=== PATIENT | male | born 1950 | race Caucasian/White ===

== ENCOUNTER 2024-05-04 16:25 | Inpatient (IN) | payer OTHER, SELFPAY ==
[2024-05-04] VITALS (12 sets, daily range): BP systolic 147–196; BP diastolic 77–126
[2024-05-04 11:36] LABS: % Basophils 0.3 % (0-2); % Immature Granulocytes 0.9 % (0-0.5); % Lymphocytes 16.8 % (20.5-51.1); % Monocytes 8.3 % (1.7-9.3); % Neutrophils 73.7 % (42.2-75.2); Absolute Immature Granulocytes 0.1 10^3/uL (0-0.05); Absolute Lymphocytes 1.3 10^3/uL (1.2-3.4); Absolute Monocytes 0.6 10^3/uL (0.1-0.6); Absolute Neutrophils 5.7 10^3/uL (1.4-6.5); Hematocrit 38.9 % (39.0-52.0); Hemoglobin 13.5 g/dL (13.0-18.0); Mean Corp Hgb Conc. 34.7 g/dL (33.0-37.0); Mean Corpuscular Hgb 32.8 pg (27.0-31.0); Mean Corpuscular Volume 94.6 fL (80.0-94.0); Mean Platelet Volume 9.8 fL (7.4-10.4); Nucleated Red Blood Cells % 0 % (-); Platelet Count 166 10^3/uL (130-400); Red Blood Cell Count 4.11 10^6/uL (4.70-6.10); Red Cell Dist. Width 13.6 % (11.5-14.5); White Blood Cell Count 7.7 10^3/uL (4.8-10.8)
--- NOTE | 2024-05-04 11:37 | ED.GENMED ---
History of Present Illness
General
Chief Complaint: Change in Mental Status
Time Seen by Provider: 05/04/24 11:12
History of Present Illness
History of Present Illness:
73-year-old male with no known past medical history presenting to the emergency department for fall and altered mental status. Patient arrives from home. [id number] was at the patient's home, heard a thud, found the patient on the ground.
When he found the patient, patient seemed altered and out of it. Medics were subsequently called. Patient on arrival is awake and alert, however is having difficulty following commands, no present verbal conversation. No additional history
obtained at this time. Pnujcra-jh-daz allegedly reported that he did not see patient this morning, no known last normal
Past History
Social History
Tobacco: Non-smoker
Personal:
Living: with family
Phy Exam
Physical Exam
Physical Exam:
General: no clinical signs of dehydration, nontoxic and in no acute distress
HEENT: protecting airway, pupils equal and react
Neck: appears supple, no tenderness to the midline spine
CV: Normal heart rate, regular rhythm, no evidence of cyanosis
Resp: No accessory muscle use, no increased work of breathing, lungs clear to auscultation bilaterally
Abd: Soft and non-distended, no tenderness to palpation
Extremities: No deformities, no swelling, no erythema, pulses and sensation intact
Neuro: alert, not currently verbally communicative. Following minimal commands, moving all extremities
: deferred
Rectal: deferred
Psych: Normal affect
Skin: Intact
Course
Orders/Labs/Results
Orders:
Orders
05/04/24 11:12
Electrocardiogram (*1) Urgent
Reason for Study: Other
Other Reason for Exam: sepsis
EKG- Treatment ONCE
Straight cath- Treatment ONCE
05/04/24 11:13
CT Cervical Spine W/o Iv Contr Urgent
Comment:
Reason For Exam: untinessed fall
CT Head W/o Iv Contrast Urgent
Comment:
Reason For Exam: change in status
CR Chest Portable - 1 View Urgent
Comment:
Reason For Exam: AMS
Reason Study Needs to be Portable: Unable to Transport
05/04/24 11:27
Alcohol Urgent
COVID-19 Antigen Urgent
Source: Nasal Swab
Complete Blood Count/With Diff Urgent
Comprehensive Metabolic Panel Urgent
PTT Urgent
Prothrombin Time Urgent
Troponin I Urgent
Influenza A+B Rapid Molecular Urgent
JUDITH Source: Nasal Swab
Specimen Description:
05/04/24 11:30
Lactic Acid Q4H
Comment: CANCEL 2nd LACTIC ACID IF 1st LACTIC ACID IS LESS THAN 2
Venous Blood Gas Urgent
%Oxygen/Room Air: 21
05/04/24 11:43
Urinalysis Reflex To Culture Urgent
Date Specimen was Collected: 05/04/24
Time Specimen was Collected: 11:32
Urine Drug Abuse Screen Urgent
Date Specimen was Collected: 05/04/24
Time Specimen was Collected: 11:32
05/04/24 11:48
Add On- LAB Urgent
Tests Added?: urine drug screen
05/04/24 11:57
CT Head & Neck Angio W/wo IV Urgent
Comment:
Reason For Exam: altered mental status, minimal speech
05/04/24 11:58
Add On- LAB Urgent
Tests Added?: ETOH level
05/04/24 12:00
CT Chest Pe Study Urgent
Reason For Exam: AMS, hypoxia
05/04/24 12:10
0.9% Sodium Chloride 1000 ml [Nss] 1,000 ml IV BOLUS
05/04/24 Dinner
NPO
Allow oral meds: Yes
Allow clear liquids: Sips of Clears
Cefepime HCl [Maxipime] 2,000 mg IV NOW STA
05/04/24 15:12
Acetaminophen [Tylenol/Feverall] 975 mg RECTAL NOW STA
05/04/24 15:27
Vancomycin [Vancocin] 2,000 mg 0.9% Sodium Chloride 500 ml [Nss] 500 ml IV NOW
05/04/24 15:41
Blood Culture Routine
JUDITH Source: Blood/Venous
Specimen Description:
05/04/24 15:53
Admit/Transfer Patient As Directed
Co-Sign Provider:
Level of Care: Inpatient admission
Assign to:: Medical/Surgical
Physician / Group: suzanne
Diagnosis: sepsis pneumonia
Reason for Hospitalization: sepsis pneumonia
Expected length of stay greater than two midnights?: Yes
ELOS- Estimated Length of Stay in days: 2
I certify the patient meets the requirements for IP care: Yes
PRN Pain Medication Management As Directed
May give lesser potent ordered pain med per pt: Yes
preference::
Protocol:: Medication orders for pain may be administered in a
manner that supports deferring to patient preference
when the pt is:
- Requesting an ordered lesser potent pain medication.
Least to most potent pain medications are defined
as: acetaminophen < NSAID < tramadol < opioids
(morphine, oxycodone, hydromorphone).
- Requesting a lesser dose of the same medication IF
ORDERED.
- Requesting a less intrusive route of administration
if both routes are prescribed by the provider (PO <
IV).
05/04/24 15:54
Code Status As Directed
Resuscitation Status: Full Code
05/04/24 15:56
Respiratory Culture/Gram Stain Urgent
JUDITH Source: Sputum
Specimen Description:
Date Specimen was Collected: 05/05/24
Time Specimen was Collected: 15:51
05/04/24 19:03
0.9% Sodium Chloride 1000 ml [Nss] 1,000 ml IV 100 mls/hr
Acetaminophen [Tylenol/Feverall] 650 mg RECTAL Q4HPRN PRN
Labetalol HCl [Trandate] 10 mg IV Q6HPRN PRN
VANCOMYCIN Pharmacy to Dose [VANCOCIN Pharmacy to Dose] 1 each Pharmacy To Prepare [Call Pharmacy To Prepare] 0 ml IV PER PROTOCOL
05/04/24 19:03
Activity As Directed
Activity Level: As Tolerated
Vital Signs As Directed
Frequency: Per unit guidelines
DX Deep Vein Thrombosis Video Routine
05/04/24 20:00
Heparin 5,000 units SC Q12
Piperacillin/Tazo 3.375 Gram [Zosyn] 3.375 gram in 50 ml IV Q6H
05/04/24 21:34
Blood Culture Urgent
JUDITH Source: Blood/Venous
Specimen Description:
05/04/24 21:37
Legionella Urinary Antigen Urgent
JUDITH Source: Urine
Specimen Description:
Strep pneumoniae Antigen Urgent
JUDITH Source: Urine
Specimen Description:
05/05/24 05:19
Complete Blood Count/With Diff IN AM
Comprehensive Metabolic Panel IN AM
Abnormal Lab Results
05/04/24 05/04/24 05/04/24
11:27 11:30 11:43
RBC 4.11 L 10^6/uL
(4.70-6.10)
Hct 38.9 L %
(39.0-52.0)
MCV 94.6 H fL
(80.0-94.0)
MCH 32.8 H pg
(27.0-31.0)
Abs Immat Gran (auto) 0.1 H 10^3/uL
(0-0.05)
Immature Gran % 0.9 H %
(0-0.5)
Lymphocytes % 16.8 L %
(20.5-51.1)
PT 14.7 H Sec
(11.4-14.6)
VBG pO2 124 H mmHg
(30-50)
BUN 27 H mg/dl
(9-20)
Glucose 133 H mg/dl
(70-99)
ALT 60 H U/L
(0-50)
Urine Ketones 1+ A
(Negative)
Urine Bilirubin 1+ A
(Negative)
05/04/24 11:27
05/04/24 11:27
Vital Signs
Initial and Last Documented VS:
Initial Vital Signs
Temp Pulse Resp BP Pulse Ox
98.5 F 95 18 175/97 89
05/04/24 11:09 05/04/24 11:09 05/04/24 11:09 05/04/24 11:09 05/04/24 11:09
Last Documented Vital Signs
Temp Pulse Resp BP Pulse Ox
99.2 F 102 15 164/95 96
05/05/24 15:25 05/05/24 19:15 05/05/24 19:15 05/05/24 19:00 05/05/24 19:15
MDM/Problems Addressed
MDM/Problems Addressed:
77-year-old male with no known past medical history presenting for reported fall and altered mental status. Vital signs on arrival significant for low oxygen saturation.
On exam, patient is awake and alert, however is following minimal commands, no present verbal response. No obvious additional focal neurologic deficits, moving all extremities equally. No signs of trauma. Pelvis is stable. Given report of fall
and altered mental status, concern for pathology such as a hemorrhagic stroke. For this reason, patient immediately sent to CT scan for brain imaging. With stroke being a consideration, unknown last normal, not presently tPA candidate. However,
hide to also suspect possible additional underlying cause to patient's symptoms, possible metabolic component versus infectious. Patient hypoxic to 89%, placed on nasal cannula. Will send viral swabs and obtain chest x-ray imaging.
12:00 -patient CT of the brain and C-spine is negative. Labs are grossly unremarkable at this time. Normal urinalysis. Family arrives, and [id number] reports that patient was last normal yesterday. When he got home from [employer] today, he went
to go check on the patient, he was leaning on the kitchen sink and seemed out of it. He then came out of the bathroom, missed a step and fell. Family notes that he has been fighting off an infection for the past week, cough. Will send patient for
CT angio of the brain and neck, and also CT of the chest given infectious concerns and presenting hypoxia.
15:00 -CT angio head/neck without evidence of acute pathology. CT of the chest shows a left-sided pneumonia. Patient with normal lactic acid, no leukocytosis, not meeting sepsis criteria. VBG without hypercapnia. Will start patient on
broad-spectrum antibiotics, however, with family noting that patient has been on azithromycin at home. Suspect etiology of patient's altered mental status and cough. Patient remains very altered, however continues to protect airway. He is now
having rigors, re-temp now febrile. Rectal Tylenol ordered. Plan for admission for pneumonia and altered mental status, possible metabolic encephalopathy.
*EKG
Interpreted by ED Provider?: Yes
EKG Intrepretation Date: 05/04/24
EKG Intrepretation Time: 11:41
Interpretation: normal
Comparison EKG: no changes
Heart Rate: 87
Rate: normal
Rhythm: sinus
[place]: normal axis
Interval: first degree heart block
QRS Pattern: normal QRS
Ischemia: no ischemia
*Critical Care Note
Total Time (30-74mins, 75-104mins- exclusive of procedures): 46
comment:
The high probability of a clinically significant, sudden or life threatening deterioration of the infectious/neurologic system(s) required my full and direct attention, intervention and personal management. The aggregate critical care time was 46
minutes. This time is in addition to time spent performing reported procedures but includes the following:
[x] Data Review and interpretation
[x] Patient assessment and monitoring of vital signs
[x] Documentation
[x] Medication orders and management
ED Attending Note
-
Portions of this chart may have been created with voice recognition software.� Occasional wrong word or��sound alike� substitutions may have occurred due to the inherent limitations of voice recognition software.
Discharge Plan
Departure
Patient Disposition: Admit
Date of Disposition: 05/04/24
Time of Disposition: 15:18
Presentation/result/management discussed w/ accepting MD/DO: Hospitalist
Patient with high blood pressure during this ER visit?: No
Condition: Serious
Discharge Problem:
Pneumonia involving left lung, Altered mental status
Interventions
Interventions:
*Risk Screen - Suicide Last Done: 05/04/24 23:34
*General Assessment Last Done: 05/04/24 11:09
*Neglect/Abuse Screening Last Done: 05/04/24 11:09
*ED COVID-19 Vaccine History Last Done: 05/04/24 23:34
*Nursing Disposition Last Done: 05/04/24 18:27
ED- Pulmonary Assessment Last Done: 05/04/24 18:27
ED- Neurological Assessment Last Done: 05/04/24 11:49
ED- Cardiac Assessment Last Done: 05/04/24 11:37
Discharge Date and Time
Discharge Date/Time: 05/04/24 18:30
[2024-05-04 11:40] LABS: Venous Blood Gas B.E. 1.3 mmol/L (-4 to +4); Venous Blood Gas HCO3 25.9 mmol/L (22-27); Venous Blood Gas O2 Sat % 99.3 %; Venous Blood Gas pCO2 40 mmHg (35-48); Venous Blood Gas pH 7.42 (7.32-7.43); Venous Blood Gas pO2 124 mmHg (30-50)
[2024-05-04 11:45] LABS: APTT 34.7 Sec (23.4-35.0); INR 1.16; PT 14.7 Sec (11.4-14.6)
[2024-05-04 11:47] LABS: Venous Blood Gas O2 Therapy 21
[2024-05-04 11:50] LABS: Urine Albumin Trace (Neg - Trace); Urine Bilirubin 1+ (Negative); Urine Character Clear (Clear); Urine Color Yellow; Urine Glucose Negative (Negative); Urine Ketone 1+ (Negative); Urine Leukocyte Negative (Negative); Urine Nitrite Negative (Negative); Urine Occult Blood Negative (Negative); Urine Specific Gravity 1.025 (<1.030); Urine Urobilinogen Negative (Neg - 1+)
[2024-05-04 11:50] LABS: ALT (SGPT) 60 U/L (0-50); AST (SGOT) 39 U/L (17-59); Albumin 4.6 g/dl (3.5-5.0); Alkaline Phosphatase 69 U/L (38-126); Blood Urea Nitrogen 27 mg/dl (9-20); Calcium 9.2 mg/dl (8.4-10.2); Carbon Dioxide 22 mmol/L (22-30); Chloride 103 mmol/L (98-107); Glucose 133 mg/dl (70-99); Potassium 4.1 mmol/L (3.5-5.1); Sodium 139 mmol/L (135-145); Total Bilirubin 0.8 mg/dl (0.2-1.3); Total Protein 7.4 g/dl (6.3-8.2); eGFR > 60.00
[2024-05-04 11:59] LABS: COVID-19 Antigen Negative (Negative)
[2024-05-04 12:02] LABS: Troponin I < 0.012 ng/ml
[2024-05-04 12:05] LABS: Amphetamines Negative (Negative); Barbiturates Negative (Negative); Benzodiazepines Negative (Negative); Buprenorphine Negative (Negative); Cocaine Negative (Negative); Marijuana Negative (Negative); Methadone Negative (Negative); Methamphetamines Negative (Negative); Opiates Negative (Negative); Phencyclidine Negative (Negative); Tricyclic Antidepressants Negative (Negative)
[2024-05-04] MEDS: NSS 1000 IV ×2 (12:13→20:21)
[2024-05-04 12:18] LABS: Alcohol None Detected
[2024-05-04] MEDS: TYLENOL/FEVERALL 975 MG RECTAL (15:18)
[2024-05-04] MEDS: MAXIPIME 2000 MG IV (15:21)
[2024-05-04] MEDS: VANCOCIN 540 MG IV (15:48)
--- NOTE | 2024-05-04 15:57 | HPS.HSE ---
Family Physician
-
Family Physician: INTERVIEWE UNKNOWN - PT NOT
Chief Complaint
-
altered mental status
History of Present Illness
73-year-old male past medical history of left shoulder injury presenting to the emergency room for fall and altered mental status. History is obtained from patient's [id number] who is a nurse. Patient has been having productive cough with chest
congestion for the past 2 weeks. He had been self-medicating with 3 Aleve in the morning and 3 Aleve at night as well as DayQuil and NyQuil's. He also had some amoxicillin which he was taking.
This morning he was noted to be lethargic while he was walking he was leaning to 1 side and had a witnessed fall. This was witnessed by patient's brother. Medics were called. On arrival patient was awake and alert but having difficulty following
commands and was nonverbal. Patient was last seen normal yesterday evening.
Patient does not smoke, drink alcohol or use any recreational drugs or herbal supplements.
No history of neurological problems such as seizure. Patient does not follow doctors.
2 siblings with diabetes and 2 siblings with CAD.
Medical History
Past Medical History
Past Medical History: Reports Other (left shoulder injury)
Past Surgical History: Reports None
Social History
Tobacco: Non-smoker
Alcohol: None
Drug: None
Family History
Family History: Not pertinent
Allergies / Home Medications
Allergies reflects when Allergies were last updated in [facility].
Home Medications with original date entered in [facility]
Allergy/Medication List:
Allergies
Allergy/AdvReac Type Severity Reaction Status Date / Time
No Known Allergies Allergy Verified 11/05/13 17:57
Home Medications
amoxicillin 500 mg capsule 1,000 mg PO TID 05/04/24
naproxen sodium 220 mg tablet (Aleve) 660 mg PO BIDPRN PRN shoulder pains 05/04/24
Review of Systems
-
History Source: Patient
A 12 point ROS was completed and negative except as noted: Yes
Constitutional: Reports No Symptoms
EENT: Reports No Symptoms
Respiratory: Reports See HPI
Cardiac: Reports No Symptoms
Abdomen/GI: Reports No Symptoms
: Reports No Symptoms
Musculoskeletal: Reports No Symptoms
Skin: Reports No Symptoms
Neurological: Reports No Symptoms
Endocrine: Reports No Symptoms
Hematologic/Lymphatic: Reports No Symptoms
Psych: Reports No Symptoms
Physical Exam
Vital Signs
Vital Signs
Temp Pulse Resp BP Pulse Ox
101.0 F H 103 18 196/126 97
05/04/24 15:22 05/04/24 15:15 05/04/24 11:09 05/04/24 15:01 05/04/24 15:15
Physical Exam
General: Well Developed, Well Nourished and No Apparent Distress
HEENT: NormoCephalic, Moist mucous membranes and Atraumatic
Respiratory: Clear
Cardiac: S1/S2 and Regular Rhythm; No Murmur or Rub
GI: Soft, Non Tender, Non Distended and Normal Bowel Sounds; No Organomegaly
Rectal: Deferred by Provider
Musculoskeletal: No Clubbing, No Cyanosis and No Edema
Skin: No Rash
Neuro: Nonfocal/grossly intact
Laboratory Results
-
05/04/24 11:27
05/04/24 11:27
Laboratory Results
PT 14.7 Sec (11.4-14.6) H 05/04/24 11:27
INR 1.16 05/04/24 11:27
APTT 34.7 Sec (23.4-35.0) 05/04/24 11:27
Lactic Acid Cancelled 05/04/24 15:15
Total Bilirubin 0.8 mg/dl (0.2-1.3) 05/04/24 11:27
AST 39 U/L (17-59) 05/04/24 11:27
ALT 60 U/L (0-50) H 05/04/24 11:27
Alkaline Phosphatase 69 U/L (38-126) 05/04/24 11:27
Troponin I < 0.012 ng/ml 05/04/24 11:27
Data Reviewed
-
Lab Data: Labs Reviewed by me
Old Records: Reviewed
Impression/Plan
-
IMPRESSION:
PLAN:
# Altered mental status likely metabolic encephalopathy secondary to sepsis from pneumonia
-Patient awake and alert but not speaking at all or following commands
-Fever 101
-CT head unremarkable
-CTA head and neck shows no acute abnormality
-VBG unremarkable
-Urinalysis unremarkable
-Alcohol level negative
-UDS unremarkable
-COVID-negative
-Patient has clear source of sepsis from pneumonia, doubt encephalitis or seizure at this time
# Sepsis (fever, tachycardia,) secondary to left lower lobe pneumonia
-CT PE shows probable moderate left lower lobe pneumonia, underlying mass not excluded
-Check sputum culture, strep antigen, Legionella antigen, MRSA if able
-Check blood cultures
-IV fluids
-Rectal Tylenol if needed
-Vancomycin/Zosyn
# Hypertensive urgency
-IV labetalol
Full code
DVT prophylaxis�heparin
N.p.o.
--- NOTE | 2024-05-04 19:13 | PHA.VAN.IN ---
Assessment
- Assessment
Renal Function: Appears similar to baseline
Maximum Temperature: 101
Concomitant Antimicrobials: Piperacillin/Tazobactam
AUC Dosing Plan
- Empiric Dosing
Initial / Loading Dose: Vanco 2000mg Loading dose 05/04/24 15:48
Maintenance Regimen: Vanco 1250mg Q12H
Estimated AUC (mcg*h/mL): 484
Estimated Peak (mcg*h/mL): 29.6
Estimated Trough (mcg/ml): 12.8
Estimated Half Life (H): 8.67
- Monitoring
No levels ordered at this time: Consider in the next few days
Pharmacokinetics Vancomycin I
- -
Patient Age: 73
Vancomycin Day #: 1
Indication: Pulmonary/Respiratory
Requesting Provider: Vani
Pertinent Antimicrobial Allergies:
NKDA
Height / Weight:
Height 5 ft 9 in
Actual Weight 114.2 kg
Pertinent Past Medical History: Pneumonia
- Vital Signs / Lab Results
Temp Pulse Resp BP Pulse Ox
99.3 F 99 18 166/104 94
05/04/24 19:00 05/04/24 19:00 05/04/24 19:00 05/04/24 19:00 05/04/24 19:00
Lab Results - Hematology
05/04/24
11:27
WBC 7.7
Lab Results - Chemistry
05/04/24
11:27
BUN 27 H
Creatinine 0.9
Albumin 4.6
05/04/24 05/04/24
11:30 15:15
Lactic Acid 1.0 Cancelled
Lab Results - Urine
05/04/24
11:43
Urine Nitrite (Reflex) Negative
Leukocyte Esterase Rfl Negative
Microbiology Results
05/04/24 11:27 Influenza Types A & B ([facility]) - Final
Nasal Swab Negative for Influenza A & B, NAAT
Negative results must be combined with clinical observations
and patient history.
Nucleic Acid Amplification test (NAAT)performed on the
[employer] platform.
[2024-05-04] MEDS: ZOSYN 50 IV (20:22)
[2024-05-04] MEDS: HEPARIN 5000 UNITS SC (20:22)
--- NOTE | 2024-05-04 22:30 | PTCARENOTE ---
Patient remains non-verbal, unable to follow any commands. Pupils reactive but 4-5mm in size. Patient with a temperature of 100.9, BP elevated. Labetalol and Tylenol suppository to be given. CT of head with no acute findings, labs and VBG reviewed
with NEDA Montiel. This RN discussed with NEDA that patient does not look well and asked her to assess patient. NEDA spoke with hospitalist. Note entered by Dr. Ludwig. BP and temperature improved s/p medication. Care ongoing, will continue
to monitor.
[2024-05-04] MEDS: TYLENOL/FEVERALL 650 MG RECTAL (22:45)
[2024-05-04] MEDS: TRANDATE 10 MG IV (22:45)
--- NOTE | 2024-05-04 23:39 | W.PN.UPDATE ---
Update Note
Progress Note Update
Patient continues to be arousable and opens eyes however continues to not follow commands or speak. Possible catatonia. If no further improvement with IV antibiotics will need to consider LP, MRI brain and neurology consult for consideration of
encephalitis.
[2024-05-05] VITALS (45 sets, daily range): BP systolic 87–176; BP diastolic 70–137; BMI 37.0
[2024-05-05] MEDS: ZOSYN 50 IV ×2 (01:56→08:44)
[2024-05-05] MEDS: NSS 1000 IV ×2 (04:21→15:36)
[2024-05-05] MEDS: VANCOCIN 275 MG IV (05:24)
[2024-05-05 05:38] LABS: % Basophils 0.5 % (0-2); % Eosinophils 0.2 % (0-6); % Immature Granulocytes 0.8 % (0-0.5); % Lymphocytes 14.1 % (20.5-51.1); % Monocytes 10.5 % (1.7-9.3); % Neutrophils 73.9 % (42.2-75.2); Absolute Immature Granulocytes 0.1 10^3/uL (0-0.05); Absolute Lymphocytes 0.9 10^3/uL (1.2-3.4); Absolute Monocytes 0.7 10^3/uL (0.1-0.6); Absolute Neutrophils 4.7 10^3/uL (1.4-6.5); Hematocrit 35.5 % (39.0-52.0); Hemoglobin 12.6 g/dL (13.0-18.0); Mean Corp Hgb Conc. 35.5 g/dL (33.0-37.0); Mean Corpuscular Hgb 34.2 pg (27.0-31.0); Mean Corpuscular Volume 96.5 fL (80.0-94.0); Mean Platelet Volume 9.2 fL (7.4-10.4); Nucleated Red Blood Cells % 0 % (-); Platelet Count 129 10^3/uL (130-400); Red Blood Cell Count 3.68 10^6/uL (4.70-6.10); Red Cell Dist. Width 13.2 % (11.5-14.5); White Blood Cell Count 6.3 10^3/uL (4.8-10.8)
[2024-05-05 05:58] LABS: ALT (SGPT) 46 U/L (0-50); AST (SGOT) 32 U/L (17-59); Alkaline Phosphatase 57 U/L (38-126); Blood Urea Nitrogen 21 mg/dl (9-20); Calcium 8.5 mg/dl (8.4-10.2); Carbon Dioxide 24 mmol/L (22-30); Chloride 103 mmol/L (98-107); Estimated Creatinine Clearance 102 ml/min; Glucose 119 mg/dl (70-99); Potassium 4.3 mmol/L (3.5-5.1); Sodium 137 mmol/L (135-145); Total Protein 6.6 g/dl (6.3-8.2); eGFR > 60.00
--- NOTE | 2024-05-05 06:52 | W.PN.UPDATE ---
Update Note
Progress Note Update
RN called APPLICATIONS SALES CONSULTANT to evaluate patient. Patient seen and evaluated, Patient continuos to be at the baseline. Awake and alert and non-verbal, looks at the [employer] SALES CONSULTANT but no communication, does not follow commands. vitals stable. Addressed with the admitting Dr.
Isaiasdandmckenzie if MRI need to be done or a neuro consult. Plans noted. No new orders at present.
[2024-05-05] MEDS: HEPARIN 5000 UNITS SC (08:40)
[2024-05-05] MEDS: TRANDATE 10 MG IV (08:44)
--- NOTE | 2024-05-05 09:03 | W.PN.HOSP.TC ---
Today's Communication/Plan
-
see bold
Assessment / Plan
Assessment / Plan
HPI: 73-year-old male past medical history of left shoulder injury presenting to the emergency room for fall and altered mental status. History is obtained from patient's [id number] who is a nurse. Patient has been having productive cough with
chest congestion for the past 2 weeks. He had been self-medicating with 3 Aleve in the morning and 3 Aleve at night as well as DayQuil and NyQuil's. He also had some amoxicillin which he was taking.
This morning he was noted to be lethargic while he was walking he was leaning to 1 side and had a witnessed fall. This was witnessed by patient's brother. Medics were called. On arrival patient was awake and alert but having difficulty following
commands and was nonverbal. Patient was last seen normal yesterday evening.
#Altered mental status
#Fever
#Sepsis
#Encephalitis vs Bacterial Meningitis vs Aseptic meningitis
Appreciate neurology and ID input, LP ordered, started on empiric vanc/ceftriaxone/ampicillin/doxycycline
Patient has been on high-dose NSAIDs, which can cause aseptic meningitis
Check brain MRI, check Lyme/West Nile serology, follow-up CSF studies
Consult business director
#Possible pneumonia
Continue antibiotics as above
#Seizure activity
Intubated for airway protection 05/05
Transferred to the ICU
Started on Keppra 1000 mg IV every 12 hours, Versed drip
#Hypertensive urgency
IV labetalol as needed
#Obesity due to excess calories
Affects all aspects of care
#Recent dental procedure
DVT prophylaxis�subcu Lovenox
Full code
Total time spent to see the patient on the floor, examine the patient, review data and lab results, discuss treatment plan with patient, nursing staff around 65 minutes.
Physical Exam
General: Appears acutely ill
HEENT: Normocephalic, Atraumatic, EOMI, MMM
Respiratory: Clear to Auscultation bilaterally
Cardiac: Normal S1/S2, Regular Rate and Rhythm
GI: Soft, Nontender, Nondistended, Normal Bowel Sounds
Extremities: No Clubbing, Cyanosis
Neuro: Not answering questions, not following commands, cogwheel rigidity noted
Anticipated Discharge: > 48 hours
Subjective/Interval History
-
Date of Service: May 05, 2024
Patient seen and examined twice today. In the morning, his eyes were open, he did not answer questions or follow commands. In the afternoon, he was transferred to the ICU for seizure activity. He was intubated for airway protection.
Objective Data
-
Labs:
Laboratory Results
05/05/24
05:19
WBC 6.3
Hgb 12.6 L
Hct 35.5 L
Plt Count 129 L D
Sodium 137
Potassium 4.3
Chloride 103
Carbon Dioxide 24
BUN 21 H
Creatinine 0.8
Glucose 119 H
Calcium 8.5
Total Bilirubin 1.0
AST 32
ALT 46
Alkaline Phosphatase 57
Vital Signs:
Vital Signs
Temp Pulse Resp BP Pulse Ox
99.0 F 86 20 163/108 95
05/05/24 07:57 05/05/24 08:44 05/05/24 07:57 05/05/24 08:44 05/05/24 07:57
--- NOTE | 2024-05-05 10:32 | CON.NEURO ---
Consultation
Order
Date of Consultation: 05/05/24
Requesting Provider: Dr. Abdi
Reason for Consult: aphasia vs catatonia
CC: none
HPI: This is a 73-year-old man who presented to [facility] on May 04, 2024 with hypoxia and hypoxia. Neurology consultation was requested for evaluation of suspected language dysfunction versus catatonia.
The patient is unable to provide the history.
ER VS: 175/97, 95, 18-24, 38.3C C. 89% .
EKG: NSR, 1st degree of AVB. QTc Int : 418 ms
PDMP:none
Labs: Normal WBCs, platelets 166-129, normal sodium, creatinine, lactic acid, glucose�133, UA positive for ketones, bilirubin, urine tox�negative, EtOH�negative, SARS Cov-2 ag�negative
CT head-No acute intracranial abnormality.
CTA head/neck-no evidence of M1 or M2 occlusion. There is no carotid dissection. There is no focal stenosis. Possible moderate left lower lobe pneumonia
C spine CT- severe disc space narrowing at C5/6 and C6/7. There is moderate narrowing at C7/T1.
Mr. Duncan was started on Zosyn, cefepime and vancomycin.
PMH: no prior medical care
PSH: leg ORIF in childhood
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
FH: DM, CAD
All: NKDA
ROS: limited due to encephalopathy
General: intermittently restless. No clear neck stiffness.
Cardio: Regular rate. Extremities are without cyanosis or edema.
Neuro:
Mental Status: Alert,attends briefly. Does not follow requests. Mute, no hemineglect.
CN: Orthophoric primary gaze. Pupils 3 mm, reactive. Blink to stand bilateral. No facial weakness.
Motor: Increased motor tone in the upper and lower extremities use cogwheeling. Moves upper and lower extremities antigravity and nonpurposeful spontaneously symmetrically.
Reflexes: Limited exam due to cooperation.
Sensory: Unable to assess due to encephalopathy.
Coordination: Intermittent myoclonic movements?
Gait: deferred
Assessment and Plan:
-Fall precautions
-Blood pressure control
-Avoid neurotoxic medications (cefepime)
-Routine EEG
-Brain MRI without gadolinium
-Please check CK, TFTs, ammonia
-Thiamine 100 mg IV, Acyclovir 10 mg/kg/dose every 8 hours IV
-ID consult
-CSF studies (opening/closing pressure, cell count, cultures)
-DVT p the case was discussed with prophylaxis.
-Patient's family and medical personnel
I personally reviewed all radiology and labs along with past medical records pertinent to current medical problems. Total time spent in patient care is 60 minutes.
Thank you for allowing us to participate in the care of this patient. We will continue to follow. Please do not hesitate to contact us with any questions or concerns.
Subjective/Objective
Subjective Data
Date of Service: May 05, 2024
Objective Data
Vital Signs
Temp Pulse Resp BP Pulse Ox
37.2 C 86 20 130/98 95
05/05/24 07:57 05/05/24 08:44 05/05/24 07:57 05/05/24 09:54 05/05/24 07:57
Lab Results
05/05/24 05:19
05/05/24 05:19
PT 14.7 Sec (11.4-14.6) H 05/04/24 11:27
INR 1.16 05/04/24 11:27
APTT 34.7 Sec (23.4-35.0) 05/04/24 11:27
Sodium 137 mmol/L (135-145) 05/05/24 05:19
Potassium 4.3 mmol/L (3.5-5.1) 05/05/24 05:19
BUN 21 mg/dl (9-20) H 05/05/24 05:19
Glucose 119 mg/dl (70-99) H 05/05/24 05:19
Calcium 8.5 mg/dl (8.4-10.2) 05/05/24 05:19
Ur Buprenorphine Negative (Negative) 05/04/24 11:43
Patient Allergies
No Known Allergies Allergy (Verified 11/05/13 17:57)
Medications
-
Active Medications
Generic Name Dose Route Start Last Admin
Trade Name Freq PRN Reason Stop Dose Admin
Acetaminophen 650 mg 05/04/24 19:03 05/04/24 22:45
Acetaminophen 650 Mg Rectal Suppository RECTAL 06/01/24 19:02 650 mg
Q4HPRN PRN Administration
mild pain/SAUCEDO/temp> 100.4F
Heparin Sodium 5,000 units 05/04/24 20:00 05/05/24 08:40
Heparin 5,000 Units/Ml 1 Ml Vial SC 06/01/24 19:59 5,000 units
Q12 FIDENCIO Administration
Sodium Chloride 1,000 mls @ 100 mls/hr 05/04/24 19:03 05/05/24 04:21
Nss IV 1,000 mls
.Q10H FIDENCIO Administration
Piperacillin Sod/Tazobactam Sod 3.375 gram in 50 mls @ 100 mls/hr 05/04/24 20:00 05/05/24 08:44
Zosyn IV 50 mls
Q6H FIDENCIO Administration
Vancomycin HCl 1,250 mg/ 275 mls @ 183.33 mls/hr 05/05/24 06:00 05/05/24 05:24
Sodium Chloride IV 275 mls
Q12H FIDENCIO Administration
Protocol
Labetalol HCl 10 mg 05/05/24 08:16 05/05/24 08:44
Labetalol Hcl (5 Mg/Ml) 20 Ml Multi-Dose Vial IV 06/02/24 08:15 10 mg
Q6HPRN PRN Administration
SBP>160
Sodium Chloride 0 flush 05/04/24 20:00
Sodium Chloride 0.9% (Flush) Syringe IV 06/01/24 19:59
PER PROTOCOL FIDENCIO
Home Medications
�Medication �Instructions �Recorded
amoxicillin 500 mg capsule 1,000 mg PO TID 05/04/24
naproxen sodium 220 mg tablet 660 mg PO BIDPRN PRN shoulder pains 05/04/24
(Aleve)
Vital Signs and Labs
-
Vital Signs and Labs:
Vital Signs
Temp Pulse Resp BP Pulse Ox
37.2 C 86 20 130/98 95
05/05/24 07:57 05/05/24 08:44 05/05/24 07:57 05/05/24 09:54 05/05/24 07:57
Lab Results
05/05/24 05:19
05/05/24 05:19
PT 14.7 Sec (11.4-14.6) H 05/04/24 11:27
INR 1.16 05/04/24 11:27
APTT 34.7 Sec (23.4-35.0) 05/04/24 11:27
Sodium 137 mmol/L (135-145) 05/05/24 05:19
Potassium 4.3 mmol/L (3.5-5.1) 05/05/24 05:19
BUN 21 mg/dl (9-20) H 05/05/24 05:19
Glucose 119 mg/dl (70-99) H 05/05/24 05:19
Calcium 8.5 mg/dl (8.4-10.2) 05/05/24 05:19
Ur Buprenorphine Negative (Negative) 05/04/24 11:43
Medications
-
Medications:
Generic Name Dose Route Start Last Admin
Trade Name Freq PRN Reason Stop Dose Admin
Acetaminophen 650 mg 05/04/24 19:03 05/04/24 22:45
Acetaminophen 650 Mg Rectal Suppository RECTAL 06/01/24 19:02 650 mg
Q4HPRN PRN Administration
mild pain/SAUCEDO/temp> 100.4F
Heparin Sodium 5,000 units 05/04/24 20:00 05/05/24 08:40
Heparin 5,000 Units/Ml 1 Ml Vial SC 06/01/24 19:59 5,000 units
Q12 FIDENCIO Administration
Sodium Chloride 1,000 mls @ 100 mls/hr 05/04/24 19:03 05/05/24 04:21
Nss IV 1,000 mls
.Q10H FIDENCIO Administration
Piperacillin Sod/Tazobactam Sod 3.375 gram in 50 mls @ 100 mls/hr 05/04/24 20:00 05/05/24 08:44
Zosyn IV 50 mls
Q6H FIDENCIO Administration
Vancomycin HCl 1,250 mg/ 275 mls @ 183.33 mls/hr 05/05/24 06:00 05/05/24 05:24
Sodium Chloride IV 275 mls
Q12H FIDENCIO Administration
Protocol
Labetalol HCl 10 mg 05/05/24 08:16 05/05/24 08:44
Labetalol Hcl (5 Mg/Ml) 20 Ml Multi-Dose Vial IV 06/02/24 08:15 10 mg
Q6HPRN PRN Administration
SBP>160
Sodium Chloride 0 flush 05/04/24 20:00
Sodium Chloride 0.9% (Flush) Syringe IV 06/01/24 19:59
PER PROTOCOL FIDENCIO
Home Medications
-
Home Medications
amoxicillin 500 mg capsule 1,000 mg PO TID 05/04/24
naproxen sodium 220 mg tablet (Aleve) 660 mg PO BIDPRN PRN shoulder pains 05/04/24
--- NOTE | 2024-05-05 11:54 | CON.ID ---
Addendum entered and electronically signed by Alida Carranza MD 05/05/24 14:45:
chart checked - lp not yet completed
note also added valacyclovir 10 mg/kg iv q8hrs
Original Note:
Consultation
-
Date/Time Consultation Requested: 05/05/24 11:15
Date/Time Consultation Performed: 05/05/24 11:54
Requesting Provider: Dr Abdi
Performing Provider: Dr Carranza
Reason for Consultation: concern for meningitis
Chief Complaint / Past History
Chief Complaint
altered mental status
History of Present Illness
Mr Duncan is a 73 year old male with recent L shoulder injury taking high dose NSAIDs presents here yesterday for AMS. History from chart review. Patient had productive cough and chest congestion x2 weeks and self medicating with
amoxicillin. Also taking 3 Aleve in the morning and 3 Aleve at night as well as DayQuil and NyQuils. Then on the day of arrival he was lethargic, leaning to 1 side while walking and had a fall. Patient following some commands but nonverbal. Last
known normal was the evening before. No history of seizure. Doesnt typically see MDs. No pets. No sick contacts or contact with young children. No international travel. Does spend time gardening. No known tick bites.
Since arrival here Tmax 100.9 oral and 101.0 rectal (just above normal limits for rectal Ts), BP stable, wbc initially 7.7 now 6.3, hgb 12.6, plt 129, L shift if noted, eos were not initially present now 0.2%, cr 0.8, lactic acid 1.0, t bili 1.0,
ast 32, alt 46, alk phos 57, UA no pyuria, UDS negative, covid ag neg, CT PE: no PE, probably LLL pneumonia - cannot rule out mass, hilar lymphadenoapthy, CT neck - mild nonacute sinusitis, CT head no acute abnormality, patient is not responding
appropriately to questions though he is following some one step commands.
Past History
Additional Past Medical History:
avoidance of medical care
l shoulder injury
Past Surgical History: None
Allergy History:
No Known Allergies Allergy (Verified 11/05/13 17:57)
Medications Reviewed: Yes
Social History
Tobacco: Non-Smoker
Alcohol: None
Drug: None
Family History
Family History: Not Pertinent
Review of Systems
Review of Systems
unable to obtain due to the condition of hte patient
Vital Signs
Temp Pulse Resp BP Pulse Ox
99.8 F 82 16 134/78 95
05/05/24 11:10 05/05/24 11:10 05/05/24 11:10 05/05/24 11:10 05/05/24 11:10
Physical Exam
Physical Exam
Constitutional: No Acute Distress and Obese
Cardiovascular: Regular Rate and S1/S2; Negative Murmur or Rub
Pulmonary: Clear and Symmetric; Negative Wheezes, Rales or Rhonchi
Gastrointestinal: Soft, Non Tender, Non Distended and Normal Bowel Sounds
Skin: Warm and Dry; Negative Rash or Jaundice
Neurological: Awake, Alert and Other (responding to some one set commands, moving all extremities, supple neck, no obvious photophobia); Negative Oriented
Lab / Diagnostic Study Results
05/05/24 05:19
05/05/24 05:19
Abs Immat Gran (auto) 0.1 10^3/uL (0-0.05) H 05/05/24 05:19
Absolute Neuts (auto) 4.7 10^3/uL (1.4-6.5) 05/05/24 05:19
Absolute Lymphs (auto) 0.9 10^3/uL (1.2-3.4) L 05/05/24 05:19
Absolute Monos (auto) 0.7 10^3/uL (0.1-0.6) H 05/05/24 05:19
Absolute Basos (auto) 0.0 10^3/uL (0-0.2) 05/05/24 05:19
Immature Gran % 0.8 % (0-0.5) H 05/05/24 05:19
Neutrophils % 73.9 % (42.2-75.2) 05/05/24 05:19
Lymphocytes % 14.1 % (20.5-51.1) L 05/05/24 05:19
Monocytes % 10.5 % (1.7-9.3) H 05/05/24 05:19
Eosinophils % 0.2 % (0-6) 05/05/24 05:19
Basophils % 0.5 % (0-2) 05/05/24 05:19
PT 14.7 Sec (11.4-14.6) H 05/04/24 11:27
INR 1.16 05/04/24 11:27
Lactic Acid Cancelled 05/04/24 15:15
Microbiology Results
Micro:
05/04/24 00:00 Nasal Screen MRSA (PCR) - Final
Nose MRSA not detected - performed by PCR methodology.
05/04/24 21:37 Legionella Urinary Antigen - Final
Urine Negative for Legionella pneumophila Serogroup 1 antigen.
A negative result does not rule out the possiblity of
Legionella infection due to other serogroups or species of
Legionella. Clinical correlation is recommended.
Streptococcus pneumoniae Antigen (M - Final
Negative for Streptococcus pneumoniae antigen.
A negative result does not exclude infection with
Streptococcus pneumoniae. Clinical correlation is
recommended.
05/05/24 01:44 Blood Culture - Pending
Blood/Venous
05/04/24 21:34 Blood Culture - Pending
Blood/Venous
05/04/24 11:27 Influenza Types A & B (KEVON) - Final
Nasal Swab Negative for Influenza A & B, NAAT
Negative results must be combined with clinical observations
and patient history.
Nucleic Acid Amplification test (NAAT)performed on the
[employer] platform.
Assessment / Plan
Encephalitis vs Bacterial Meningitis vs Aseptic meningitis
- blood cultures x2 in progress
- started empiric antibiotic therapy: vanc/ceftriaxone/ampicillin/doxycycline - as more than an hour has passed I did not add steroids
- high dose NSAIDS (patient taking 3 Aleve in the morning and 3 Aleve at night as well as DayQuil and NyQuils) can cause aseptic meningitis
- LP is planned - follow up csf cell count, culture, protein, glucose, meningitis panel (for hsv/vzv pcr) if significant derangements will consider additional testing
- lyme serology
- [place] serology
Possible pneumonia
- blood cultures x2 in progress
- has not yet produced a sputum for culture
- legionella and s pneumo ags negative, influenza pcr neg, covid ag neg
- agree with radiology rec to repeat imaging in a few weeks for clearance - can be done with PCP
- antibiotics as above, in addition, added doxycycline
[2024-05-05 12:01] LABS: Ammonia 24 umol/L (9-30)
[2024-05-05 12:36] LABS: Creatine Phosphokinase 155 U/L (55-170)
--- NOTE | 2024-05-05 12:54 | CM ---
Patient seen at bedside with patient son at bedside, Vero. Patient unable to clarify if he wants information given but patient sister in law does state that son should be given information and be added to list of contacts. Patient
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 Patient has no PCP and he uses the [facility] in [place]. patient family want patient to return to home with assistance. Patient currently not answering questions. CM will
continue to follow for discharge planning needs.
Plan; home with VN vs SNF.
[2024-05-05 12:55] LABS: APTT 33.4 Sec (23.4-35.0); INR 1.16; PT 14.6 Sec (11.4-14.6)
[2024-05-05 12:55] LABS: TSH Reflex To Free T4 2.53 uIU/ml (0.47-4.68)
[2024-05-05] MEDS: ROCEPHIN 2000 MG IV (13:19)
[2024-05-05] MEDS: STERILE WATER FOR INJECTION 20 ML IV (13:19)
[2024-05-05] MEDS: THIAMINE INJECTION 100 MG IV (13:22)
[2024-05-05 15:16] LABS: Glucose - Point of Care 149 mg/dl (70-99)
[2024-05-05] MEDS: VERSED 5 MG IV (15:17)
--- NOTE | 2024-05-05 15:20 | W.PN.ANESINT ---
Anesthesia Intubation Note
- Intubation Note
Intubation Note:
Diagnosis: seizure
Blade: mac 4
Tube Size: 8.0
Depth: 22 @ lip
Side Taped: right
Drugs Used: 100mg propofol, 20mg succ
Grade View: 1
EtCO2 Present: yes
Atraumatic: yes
Attempts: 1
Insertion Start and Stop Time:6673-9375
SaO2 Pre: 97
SaO2 Post:97
Glidescope Used: yes
Other Airway Adjustments:
Pre-Oxygenated: yes
Portable Chest X-Ray:
RSI: yes
Suctioned:yes
Bilateral Breath Sounds Confirmed: yes
Vent Settings:
Settings per ___Attending Physician
[2024-05-05] MEDS: KEPPRA 1500 MG IV (15:30)
[2024-05-05] MEDS: LR 500 IV (15:30)
[2024-05-05] MEDS: SUBLIMAZE IV (15:32)
[2024-05-05] MEDS: ZOVIRAX INJECTION 114 MG IV ×2 (15:36→23:07)
--- NOTE | 2024-05-05 15:36 | CON.INTV ---
Consultation
Consultation Request
Date/Time Consultation Requested: 05/05/2020
Date/Time Consultation Performed: 05/05/2024
Requesting Provider: Dr. Abdi
Performing Provider: Dr. Ishmael Chau
Reason for Consultation: Abrupt change in mental status/respiratory failure
Medical History
-
History of Present Illness:
73-year-old man with history of left shoulder injury/frozen shoulder per family members who presented to the emergency room on 05/04/2024 after sustaining a fall with associated altered mental status. For the past 2 weeks patient has been
complaining of cough and chest congestion. Patient has been self-medicating with Aleve as well as DayQuil and NyQuil.
He took some amoxicillin as well.
Usually does not go to doctors.
Patient had delirium mostly hypoactive. Unable to provide history. Family states that in general he is completely normal mental status.
Does not have any significant medical problems.
He is very active in general.
His main issue lately was his left shoulder limitation.
He is a never smoker.
Does not drink alcohol or uses any drugs.
Today upon obtaining an EEG develop seizure-like activity. He was immediately transferred to the critical care unit.
He received some Ativan.
For airway protection needed to be emergently intubated, anesthesia was at the bedside. Intubation was smooth.
Past Medical History
Past Medical History: Other (See assessment and plan section)
Social History
Tobacco: Non-smoker (Never smoker)
Alcohol: None
Drug: None
Personal:
Living: With Family
Family History
Family History: Unable to Obtain
Allergies / Home Medications
Allergies
Allergy/AdvReac Type Severity Reaction Status Date / Time
No Known Allergies Allergy Verified 11/05/13 17:57
Home Medications
�Medication �Instructions �Recorded �Confirmed �Last Taken �Type
amoxicillin 500 mg capsule 1,000 mg PO TID 05/04/24 05/04/24 Unknown History
naproxen sodium 220 mg tablet 660 mg PO BIDPRN PRN shoulder pains 05/04/24 05/04/24 Unknown History
(Aleve)
Review of Systems
-
Unable to Obtain full review of systems at this time due to: Acuity and Patient Intubation
Vitals / Labs / Diagnostic Testing
Vital Signs
Temp Pulse Resp BP Pulse Ox
99.2 F 93 18 121/79 97
05/05/24 15:25 05/05/24 14:00 05/05/24 14:00 05/05/24 14:00 05/05/24 15:23
Lab Data
05/05/24 05:19
05/05/24 05:19
Laboratory Results
05/05/24
12:33
PT 14.6
INR 1.16
APTT 33.4
Microbiology
05/04/24 00:00 Nose Nasal Screen MRSA (PCR) - Final
MRSA not detected - performed by PCR methodology.
05/04/24 21:37 Urine Legionella Urinary Antigen - Final
Negative for Legionella pneumophila Serogroup 1 antigen.
A negative result does not rule out the possiblity of
Legionella infection due to other serogroups or species of
Legionella. Clinical correlation is recommended.
05/04/24 21:37 Urine Streptococcus pneumoniae Antigen (M - Final
Negative for Streptococcus pneumoniae antigen.
A negative result does not exclude infection with
Streptococcus pneumoniae. Clinical correlation is
recommended.
05/04/24 11:27 Nasal Swab Influenza Types A & B (KEVON) - Final
Negative for Influenza A & B, NAAT
Negative results must be combined with clinical observations
and patient history.
Nucleic Acid Amplification test (NAAT)performed on the
[employer] platform.
Diagnostic Testing:
Physical Exam
-
HEENT: Normocephalic
Cardiovascular: S1/S2
Respiratory: Clear
GI: Soft and Distended (Obese)
Neurology: Other (Lethargic, occasionally coughing, not following commands, no evidence for seizures. Able to move 4 extremities)
Skin: Warm
General: Comfortable
Assessment
-
73-year-old man with past medical history noted, admitted to the hospital with cough, congestion, fevers and change in mental status. Found to have pneumonia on CT chest. Started on antibiotics. Mental status did not improve, on 05/05/2024
developed seizure-like activity while on EEG prompting a rapid response. Intubated in the critical care unit during my supervision for airway protection.
Abrupt onset of change in mental status
CT head negative-reviewed
CT neck: Negative-reviewed
Normal TSH/Normal Total Ck/Normal Amonia
Fever: Change in mental status-rule out B[employer]ER [employer]TERY infection
Differential diagnosis includes viral meningitis/bacterial meningitis/aseptic meningitis from NSAID.
Alternatively, toxic metabolic encephalopathy from pneumonia and sepsis
Acute hypoxemic respiratory failure recurrent intubation/airway protection
Intubated 05/05/2024
Pneumonia: Left lower lobe infiltrate on CAT scan.
CT chest 05/04/2024: Reviewed
No evidence of pulmonary embolus.
Probable moderate left lower lobe pneumonia. Underlying mass not excluded. Repeat exam in 2 weeks after treatment is recommended.
Mild left lower lobe consolidation probable additional pneumonia versus atelectasis.
Mild left hilar lymphadenopathy. Probably reactive.
Condition present prior admission:
Frozen left shoulder
Usually does not visit doctors
Never smoker
No history of alcohol use
Assessment and plan:
Patient is critically ill-transferred to the critical care unit 05/05/2024 after seizure-like activity
Emergently intubated by anesthesia at the bedside under my supervision.
-
Suspicion for possible [employer] infection versus noninfectious meningitis. Patient has been taking high-dose Aleve for left shoulder pain.
Cannot rule out delirium from left lower lobe pneumonia on CAT scan.
-
Infectious disease has been consulted-antibiotics have been started.
Acyclovir/ampicillin/ceftriaxone/doxycycline/vancomycin
IR has been consulted for lumbar puncture
Follow cultures
-
Given seizure activity neurology has recommended to continue with Versed drip
Keppra has been started as well
Will follow laboratories and electrolytes
-
Mechanical ventilation settings reviewed
Currently not fully sedated
Will wait for the patient to be more comfortable and obtain ABG.
Chest x-ray post intubation:Pending.
-
Sedation with Versed drip per neurology
Fentanyl IV as needed
RASS score 0 to -1
Eventual lumbar puncture
-
Hypotensive after intubation and sedation.
Will give LR 500 mL bolus
Start Kenneth-Synephrine if remains hypotensive.
May need to place central line
-
N.p.o. for now
Head of the bed elevation
DVT prophylaxis heparin subcu
Will add Protonix for GI prophylaxis as the patient is intubated starting the next 24 hours
-
Glycemic control per protocol
-
Dr. Chau personally discussed with multiple family members 05/05/2024: In general patient does not goes to doctor. He is relatively healthy.
He is a never smoker.
Reviewed differential diagnosis and plan going forward.
-
Case reviewed with neurology and primary team.
-
Critical care statement: A total of 80 minutes of critical care time was provided for this patient today. This includes management of unstable vital signs, evaluation of the patient at bedside, reviewing the patient's pertinent medical records
including ventilator settings, arterial blood gases, radiographs, microbiology, laboratory evaluations and discussion with primary team, critical care nursing, and respiratory therapy.
[2024-05-05] MEDS: VERSED 2 MG IV (15:55)
--- NOTE | 2024-05-05 16:05 | PHA.VAN.FU ---
Vancomycin Assessment / Plan
- Assessment
Renal Function: Stable
WBC's are: WNL
Concomitant Antimicrobials: ampicillin, acyclovir, ceftriaxone, doxycycline
- Dosing Plan
Adjust Regimen to: Vanc 1500mg Q12H
New Regimen Predicts: AUC (525), Peak (33.4), Trough (13.1)
Dosing Comments: increasing dose based on possible [employer]IMAL [employer]OL LIC[employer]ING WORKER source
- Monitoring Plan
No level(s) ordered at this time: consider levels in next few days
- Follow Up
Pharmacy will continue to follow.
Vancomycin Follow UP
- -
Patient Age: 73
Vancomycin Day #: 2
Indication: Pulmonary/Respiratory
Requesting Provider: Vani
Pertinent Antimicrobial Allergies:
NKDA
Height / Weight:
Height 5 ft 9 in
Actual Weight 113.6 kg
Pertinent Past Medical History: BMI ~37
- Vital Signs / Lab Results
Temp Pulse Resp BP Pulse Ox
99.2 F 93 18 121/79 97
05/05/24 15:25 05/05/24 14:00 05/05/24 14:00 05/05/24 14:00 05/05/24 15:23
Lab Results - Hematology
05/04/24 05/05/24
11:27 05:19
WBC 7.7 6.3
Lab Results - Chemistry
05/04/24 05/05/24
11:27 05:19
BUN 27 H 21 H
Creatinine 0.9 0.8
Estimated Creat Clear 102
Albumin 4.6 4.0
05/04/24 05/04/24
11:30 15:15
Lactic Acid 1.0 Cancelled
Microbiology Results
05/04/24 00:00 Nasal Screen MRSA (PCR) - Final
Nose MRSA not detected - performed by PCR methodology.
05/04/24 21:37 Legionella Urinary Antigen - Final
Urine Negative for Legionella pneumophila Serogroup 1 antigen.
A negative result does not rule out the possiblity of
Legionella infection due to other serogroups or species of
Legionella. Clinical correlation is recommended.
Streptococcus pneumoniae Antigen (M - Final
Negative for Streptococcus pneumoniae antigen.
A negative result does not exclude infection with
Streptococcus pneumoniae. Clinical correlation is
recommended.
05/04/24 11:27 Influenza Types A & B (KEVON) - Final
Nasal Swab Negative for Influenza A & B, NAAT
Negative results must be combined with clinical observations
and patient history.
Nucleic Acid Amplification test (NAAT)performed on the
[employer] platform.
[2024-05-05] MEDS: NEO-SYNEPHRINE 250 IV (16:11)
[2024-05-05] MEDS: VERSED 100 IV ×3 (16:12→23:21)
--- NOTE | 2024-05-05 17:04 | EEG.RPT ---
Electroencephalogram Report
Recording
Date of EE05/05/24
Type of EEG: Routine
Length of EEG recordin minutes
Done with Video Recording: Yes
Patient Status: Inpatient
Recording Conditions: Awake and Drowsy
Hyperventilation Performed: No
Photic Stimulation Performed: Yes
Report
LESS THAN 1 HOUR EEG REPORT
LESS THAN 1 HOUR EEG INTERPRETATION:
Mildly abnormal EEG for age in wakefulness through sleep due to mild diffuse bihemispheric slowing
CLINICAL CORRELATION:
This study was suggestive of mild diffuse cortical dysfunction without focal abnormality. No seizures were recorded.
Clinical correlation is advised.
METHODS:
A 21 channel digitized electroencephalogram (EEG) was performed at the bedside. The 10/20 international system of electrode placement was used with ECG and lateral/vertical eye movements recorded. The [employer] system was utilized.
QUALITY OF STUDY:
Fair
ELECTROENCEPHALOGRAPHER IMPRESSION(S):
Background
Amplitude: Unremarkable
Anterior-Posterior Organization: Fair, good at times
Maximum: Theta
Asymmetry: None
Sleep
Drowsiness present
Photic Stimulation
Failed to activate the record
ECG
Normal sinus rhythm
[2024-05-05 17:40] LABS: Spinal Fluid Glucose 82 mg/dl (40-70); Spinal Fluid Protein 130 mg/dl (12-60)
[2024-05-05 17:42] LABS: CSF Clarity Clear; CSF Color Colorless; CSF Tube # 4; Red Cell Count/CSF 49 mm^3
[2024-05-05 17:43] LABS: White Cell Count/CSF 6 mm^3 (0-5)
[2024-05-05 18:11] LABS: Spinal Fluid Granulocytes 1 %; Spinal Fluid Lymphocytes 82 %; Spinal Fluid Macrophages 17 %
[2024-05-05] MEDS: AMPICILLIN IV (18:19)
[2024-05-05 18:37] LABS: B.E. 0.5 mmol/L; HCO3 24.6 mmol/L (21-28); O2 Saturation % 98.2 % (94-98); PCO2 37 mmHg (35-48); PO2 74 mmHg (83-108); pH 7.43 (7.35-7.45)
[2024-05-05] MEDS: LOVENOX 40 MG SC (18:41)
[2024-05-05] MEDS: VANCOCIN 300 MG IV (18:41)
[2024-05-05] MEDS: VANCOCIN 300 ML IV (18:41)
[2024-05-05] MEDS: OFIRMEV 100 IV (19:35)
[2024-05-05] MEDS: SUBLIMAZE 100 IV (19:48)
[2024-05-05] MEDS: SUBLIMAZE 100 MCG IV (19:48)
[2024-05-05] MEDS: DIPRIVAN 100 IV (19:49)
--- NOTE | 2024-05-05 20:00 | PTCARENOTE ---
Received pt via handoff. Pt sedated, responds with painful stimuli, pupils +2 and sluggish bilaterally, 102.6 fever. + pulses with trace edema throughout, NSR. Coarse rhonchi throughout, 97% on ventilator. AC 14/500/50/5 #8 24@lip. Obese and round
with decreased bowel sounds throughout. #30 condom catheter not draining urine. Skin pale, warm with an odor. Versed and NS gtts running, Kenneth off see flowsheet. Family at bedside, will continue to monitor.
--- NOTE | 2024-05-05 20:07 | PTCARENOTE ---
1530-Responded to Rapid Response in EEG Lab.Pt on stretcher not responsive to verbal or noxious stimuli.KRISHNA 2.5 mm.No tonic/clonic movement noted.Pt is diaphoretic,tachypneic with snoring respirations noted.ST on monitor with palpable pulse.Rescue
breathing with ambu bag initiated.Dr Diaz at bedside.Pt emergently transported to ICU via stretcher.Dr Pavon at bedside.Pt intubated by MEDICAL CLAIMS EXAMINER.Pt's extended family at bedside.Plan of care discussed.
1600-Pt does not respond to verbal stimuli.+ withdrawal to noxious stimuli bl upper and lower extremities. Occasional generalized fine tremor noted bl upper and lower extremity.No tonic/clonic movement noted.Versed gtt initiated as ordered.KRISHNA 2mm
sluggishly reactive.ST noted.BP 87/70.Dr Pavon made aware.LR bolus administered as ordered.1611- Phenylephrine initiated.IVF infusing.
1700-Pt transported to [facility] and CT.Lumbar puncture and Head CT completed as ordered.
1800-Intermittent bl upper and lower extremities continue.Temperature 101.[address] Busch made aware.Versed gtt titrated as ordered.
[2024-05-05 20:44] LABS: Creatine Phosphokinase 178 U/L (55-170)
[2024-05-05] MEDS: AMPICILLIN 108 MG IV (20:48)
[2024-05-05] MEDS: KEPPRA 1000 MG IV (20:53)
[2024-05-05] MEDS: VIBRAMYCIN 260 MG IV (21:55)
[2024-05-05 22:26] LABS: Magnesium 2.4 mg/dl (1.6-2.3); Phosphorus 2.1 mg/dl (2.5-4.5); Triglycerides 141 mg/dl (10-149)
[2024-05-05] MEDS: SUBLIMAZE 50 MCG IV (23:13)
[2024-05-06] VITALS (77 sets, daily range): BP systolic 90–169; BP diastolic 65–134; BMI 38.0
--- NOTE | 2024-05-06 | PTCARENOTE ---
Addendum entered by Teofilo Jalloh RN 05/06/24 01:20:
IV team place DL Picc in right arm.
Original Note:
Pt febrile, orders for cooling blanket, Ofirmev given, orders to titrate versed received. Propofol and fentanyl gtts started. 16 F Victoria inserted draining sedimentary yellow urine. LOLLY Friedman attempted to place an A Line but unsuccessful. Will
continue to monitor.
[2024-05-06] MEDS: DIPRIVAN 100 IV ×3 (00:20→07:01)
[2024-05-06] MEDS: AMPICILLIN 108 MG IV ×3 (01:03→08:44)
[2024-05-06] MEDS: STERILE WATER FOR INJECTION 20 ML IV (02:41)
[2024-05-06] MEDS: NSS 1000 IV ×3 (02:41→15:45)
[2024-05-06] MEDS: ROCEPHIN 2000 MG IV (02:41)
[2024-05-06] MEDS: VERSED 100 IV ×2 (03:17→07:16)
[2024-05-06 04:38] LABS: Hematocrit 33.3 % (39.0-52.0); Mean Corpuscular Hgb 35.6 pg (27.0-31.0); Mean Corpuscular Volume 98.8 fL (80.0-94.0); Mean Platelet Volume 9.8 fL (7.4-10.4); Platelet Count 135 10^3/uL (130-400); Red Blood Cell Count 3.37 10^6/uL (4.70-6.10); Red Cell Dist. Width 13.4 % (11.5-14.5); White Blood Cell Count 8.4 10^3/uL (4.8-10.8)
--- NOTE | 2024-05-06 04:40 | PTCARENOTE ---
All systems reassessed, cooling blanket turned off, pt afebrile. Will continue to monitor.
[2024-05-06 05:00] LABS: Blood Urea Nitrogen 23 mg/dl (9-20); Calcium 7.3 mg/dl (8.4-10.2); Carbon Dioxide 22 mmol/L (22-30); Chloride 101 mmol/L (98-107); Estimated Creatinine Clearance 117 ml/min; Glucose 92 mg/dl (70-99); Magnesium 2.3 mg/dl (1.6-2.3); Phosphorus 3.5 mg/dl (2.5-4.5); Potassium 4.4 mmol/L (3.5-5.1); Sodium 135 mmol/L (135-145); eGFR > 60.00
[2024-05-06 05:01] LABS: B.E. -2.3 mmol/L; HCO3 22.5 mmol/L (21-28); O2 Saturation % 99.6 % (94-98); PCO2 38 mmHg (35-48); PO2 140 mmHg (83-108); pH 7.38 (7.35-7.45)
[2024-05-06 05:02] LABS: O2 Therapy VENT
[2024-05-06] MEDS: VANCOCIN 300 ML IV (05:53)
[2024-05-06] MEDS: VANCOCIN 300 MG IV (05:53)
[2024-05-06] MEDS: CALCIUM GLUCONATE 100 IV (06:06)
--- NOTE | 2024-05-06 08:00 | PTCARENOTE ---
Received pt @ change of shift intubated/sedated/restrained. GCS-6, RASS -4; lethargic, w/draws to painful stimuli; does not follow commands; trace movement of extremities. SR on monitor. SpO2 96% on vent settings AC14/500/.50/+5. #8.0 ett, 24 @
lip on R side. Suctioned for thick/white secretions from ett; mouth care provided per protocol. Auscultated coarse/scatt rhonchi/exp wheeze. Hypoactive BS, abd soft/obese. Thermistor Victoria in place draining yellow/sediment urine. #20 L hand and L
FA patent, dressing c/d/i. R DL PICC w fent/prop/versed gtt- see flow sheet. Versed/prop off @ 0800 for EEG; fent left on per neuro, Dr. Busch. EEG in progress, awaiting results. Family @ bedside, updated on plan of care by Dr. Chau. Safe
environment maintained.
[2024-05-06] MEDS: KEPPRA 1000 MG IV ×2 (08:43→19:33)
[2024-05-06] MEDS: THIAMINE INJECTION 100 MG IV (08:44)
[2024-05-06] MEDS: NSS (PRESERVATIVE FREE) 10 ML IV (08:44)
[2024-05-06] MEDS: ZOVIRAX INJECTION 114 MG IV (08:44)
[2024-05-06] MEDS: PROTONIX IV 40 MG IV (08:44)
--- NOTE | 2024-05-06 08:52 | W.PN.ID1 ---
Date of Service
Date of Service: May 06, 2024
Today's Communication
- CSF is not consistent with meningitis - stopped acyclovir/vanc/amp and lowered dose of ceftriaxone
- continue ceftriaxone (dose adjusted) and doxycycline - doxycycline can be converted to oral when feasible
Assessment / Plan
Encephalitis
Obese
- assessing for potentially treatable causes which patient has potential exposure to, note the differential is extensive but much would be supportive
- blood cultures x2 in progress
- HSV/VZV/CMV/HHV6/enterovirus/listeria negative by PCR on CSF with good sensitivity
- lyme serology - in progress
- influenza was negative by pcr
- west nile serology on serum in progress
- west nile serology of CSF added on
- syphilis serology on serum sent
- CSF is not consistent with meningitis - stopped acyclovir/vanc/amp and lowered dose of ceftriaxone
Possible pneumonia
- blood cultures x2 in progress
- resp culture: few mixed bacterial morphotypes on gram stain - culture in progress
- agree with radiology rec to repeat imaging in a few weeks for clearance - can be done with PCP
- continue ceftriaxone (dose adjusted) and doxycycline - doxycycline can be converted to oral when feasible
follow clinically
Chief Complaint
-: Other (encephalitis)
Subjective / Review of Systems
febrile via core route to tmax of 103.1 overnight
on phenylephrine overnight - titrated off
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
EEG nonrevealing
remains on some fentanyl
Vital Signs / Physical Exam
Vital Signs
Vital Signs
Temp Pulse Resp BP Pulse Ox
99.6 F 75 14 92/65 95
05/06/24 08:00 05/06/24 05:45 05/06/24 05:45 05/06/24 05:45 05/06/24 08:23
Physical Exam
Constitutional: Acutely Ill and Other (sedated)
Cardiovascular: Regular Rate and S1/S2; Negative Murmur or Rub
Pulmonary: Clear and Symmetric; Negative Wheezes or Rales
Gastrointestinal: Soft, Non Tender, Non Distended and Normal Bowel Sounds
Skin: Warm and Dry; Negative Rash or Jaundice
Neurological: Negative Awake
Objective Data
Lab Data
Lab Results
05/06/24 04:10
05/06/24 04:10
PT 14.6 Sec (11.4-14.6) 05/05/24 12:33
INR 1.16 05/05/24 12:33
APTT 33.4 Sec (23.4-35.0) 05/05/24 12:33
Estimated Creat Clear 117 ml/min 05/06/24 04:10
Lactic Acid Cancelled 05/04/24 15:15
Total Bilirubin 1.0 mg/dl (0.2-1.3) 05/05/24 05:19
AST 32 U/L (17-59) 05/05/24 05:19
ALT 46 U/L (0-50) 05/05/24 05:19
Alkaline Phosphatase 57 U/L (38-126) 05/05/24 05:19
Most recent labs reviewed.
CSF
total WBC: 6
lymphs 82%
glucose 82 (minimally elevated)
protein 130 (elevated)
Micro Results:
05/05/24 01:44 Blood Culture - Preliminary
Blood/Venous No Growth in 24 hours- Final report to follow
05/05/24 17:00 Meningitis/Encephalitis Panel (PCR) - Final
Csf
05/04/24 21:34 Blood Culture - Preliminary
Blood/Venous No Growth in 24 hours- Final report to follow
05/05/24 20:19 Respiratory Culture - Pending
Sputum Gram Stain - Pending
05/05/24 17:00 CSF Culture - Pending
Csf Gram Stain - Preliminary
05/04/24 00:00 Nasal Screen MRSA (PCR) - Final
Nose MRSA not detected - performed by PCR methodology.
05/04/24 21:37 Legionella Urinary Antigen - Final
Urine Negative for Legionella pneumophila Serogroup 1 antigen.
A negative result does not rule out the possiblity of
Legionella infection due to other serogroups or species of
Legionella. Clinical correlation is recommended.
Streptococcus pneumoniae Antigen (M - Final
Negative for Streptococcus pneumoniae antigen.
A negative result does not exclude infection with
Streptococcus pneumoniae. Clinical correlation is
recommended.
05/04/24 11:27 Influenza Types A & B (KEVON) - Final
Nasal Swab Negative for Influenza A & B, NAAT
Negative results must be combined with clinical observations
and patient history.
Nucleic Acid Amplification test (NAAT)performed on the
[employer] platform.
Care Review
Plan reviewed with: Physician (Dr Pavon - allyn, he will discuss with family)
--- NOTE | 2024-05-06 08:55 | W.PN.HOSP.TC ---
Today's Communication/Plan
-
see bold
Assessment / Plan
Assessment / Plan
HPI: 73-year-old male past medical history of left shoulder injury presenting to the emergency room for fall and altered mental status. History is obtained from patient's [id number]-cdp who is a nurse. Patient has been having productive cough with
chest congestion for the past 2 weeks. He had been self-medicating with 3 Aleve in the morning and 3 Aleve at night as well as DayQuil and NyQuil's. He also had some amoxicillin which he was taking.
This morning he was noted to be lethargic while he was walking he was leaning to 1 side and had a witnessed fall. This was witnessed by patient's brother. Medics were called. On arrival patient was awake and alert but having difficulty following
commands and was nonverbal. Patient was last seen normal yesterday evening.
#Fever
#Sepsis
#Encephalitis
#Multifactorial encephalopathy
Appreciate neurology and ID input, LP not consistent with meningitis, acyclovir/Vanco/ampicillin discontinued
HSV/VZV/CMV/HHV6/enterovirus/listeria negative by PCR on CSF
Brain MRI requested, Lyme/West Nile serology pending
Continue Rocephin and doxycycline
#Intubated for airway protection 05/05
Appreciate music director input, continue vent management as per music director
#Possible pneumonia
Continue antibiotics as above
#Seizure activity
Intubated for airway protection 05/05
Transferred to the ICU
EEG negative, plan for EEG off of sedation
Started on Keppra 1000 mg IV every 12 hours
Plan to discontinue Versed drip today
#Hypotension
Phenylephrine drip
#Hypertensive urgency
Upon admission, resolved
#Obesity due to excess calories
Affects all aspects of care
#Recent dental procedure
DVT prophylaxis�subcu Lovenox
Full code
Total time spent to see the patient on the floor, examine the patient, review data and lab results, discuss treatment plan with patient, nursing staff around 51 minutes.
Physical Exam
General: Appears acutely ill
HEENT: Normocephalic, Atraumatic, EOMI, MMM
Respiratory: Clear to Auscultation bilaterally
Cardiac: Normal S1/S2, Regular Rate and Rhythm
GI: Soft, Nontender, Nondistended, Normal Bowel Sounds
Extremities: No Clubbing, Cyanosis
Neuro: Not answering questions, not following commands, cogwheel rigidity noted
Anticipated Discharge: > 48 hours
Subjective/Interval History
-
Date of Service: May 06, 2024
Patient intubated and sedated. He continues to be febrile.
Objective Data
-
Labs:
Laboratory Results
05/06/24 05/06/24
04:10 04:49
WBC 8.4
Hgb 12.0 L
Hct 33.3 L
Plt Count 135
HCO3 22.5
Sodium 135
Potassium 4.4
Chloride 101
Carbon Dioxide 22
BUN 23 H
Creatinine 0.7
Glucose 92
Calcium 7.3 L
Vital Signs:
Vital Signs
Temp Pulse Resp BP Pulse Ox
99.6 F 75 14 92/65 95
05/06/24 08:00 05/06/24 05:45 05/06/24 05:45 05/06/24 05:45 05/06/24 08:23
I&O
05/05/24 05/06/24 05/07/24
06:59 06:59 06:59
Intake Total 3050.0 / 3206.3 156.3 / 156.3
Output Total 840 / 855
Balance 2210.0 / 2351.3 141.3 / 141.3
[2024-05-06] MEDS: MIRALAX TUBE (08:59)
[2024-05-06] MEDS: OFIRMEV 100 IV ×2 (10:01→17:43)
--- NOTE | 2024-05-06 10:06 | W.PN.NEURO.1 ---
Today's Communication / Plan
-
.
Subjective/Objective
Subjective Data
Date of Service: May 06, 2024
Neurology follow-up note
24-hour events. Patient had rapid response during EEG recording after he developed rigors.
Routine EEG(05/05/2024)�mild bihemispheric slowing with no epileptiform abnormalities.
Mr. Duncan has been febrile up to 39.2 C as well as hypotensive down to 92/65 requiring Phenylephrine.
He is off Cefepime and Acyclovir.
Labs: WBCs�8.4, normal creatinine, sodium, glucose, lactic acid, TSH, CK-178
CSF(05/06/2024) WBCs�6, RBCs�49, glucose�82, CSF protein�130.
HSV/VZV/CMV/HHV6/enterovirus/listeria negative by PCR
Brain MRI�pending
CXR(05/05/2024) no active cardiopulmonary disease.
PMH: no prior medical care
PSH: leg ORIF in childhood
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
FH: DM, CAD
All: NKDA
ROS: limited due to encephalopathy
General: Intubated, sedated on propofol, Versed and continued.
Cardio: Regular rate.
Neuro:
Mental Status: Comatose.
CN: Orthophoric primary gaze. Pupils 2 mm, nonreactive. Neg corgeals, gag, oculocephalics
Motor: Flaccid quadriplegia
Reflexes: 0 throughout ,plantar-mute
Sensory: Does not grimace to noxious stimuli
Coordination: No tremors myoclonic movements.
Gait: deferred
Assessment and Plan:
1. Multifactorial encephalopathy (toxic, infectious, vascular)
2. Encephalitis
3. Hypotension
-avoid cerebral hypoperfusion
-seizure precautions
-Repeat EEG off sedation
-ID follow up
-Brain MRI [place]
-Continue Keppra 1g BID until brain MRI is completed.
I personally reviewed all radiology and labs along with past medical records pertinent to current medical problems. Total time spent in patient care is 50 minutes.
Thank you for allowing us to participate in the care of this patient. We will continue to follow. Please do not hesitate to contact us with any questions or concerns.
Objective Data
Vital Signs
Temp Pulse Resp BP Pulse Ox
37.6 C 75 14 92/65 95
05/06/24 08:00 05/06/24 05:45 05/06/24 05:45 05/06/24 05:45 05/06/24 08:23
Lab Results
05/06/24 04:10
05/06/24 04:10
PT 14.6 Sec (11.4-14.6) 05/05/24 12:33
INR 1.16 05/05/24 12:33
APTT 33.4 Sec (23.4-35.0) 05/05/24 12:33
Sodium 135 mmol/L (135-145) 05/06/24 04:10
Potassium 4.4 mmol/L (3.5-5.1) 05/06/24 04:10
BUN 23 mg/dl (9-20) H 05/06/24 04:10
Glucose 92 mg/dl (70-99) 05/06/24 04:10
Calcium 7.3 mg/dl (8.4-10.2) L 05/06/24 04:10
Phosphorus 3.5 mg/dl (2.5-4.5) 05/06/24 04:10
Ur Buprenorphine Negative (Negative) 05/04/24 11:43
Patient Allergies
No Known Allergies Allergy (Verified 11/05/13 17:57)
Vital Signs and Labs
-
Vital Signs and Labs:
Vital Signs
Temp Pulse Resp BP Pulse Ox
37.6 C 75 14 92/65 95
05/06/24 08:00 05/06/24 05:45 05/06/24 05:45 05/06/24 05:45 05/06/24 08:23
Lab Results
05/06/24 04:10
05/06/24 04:10
PT 14.6 Sec (11.4-14.6) 05/05/24 12:33
INR 1.16 05/05/24 12:33
APTT 33.4 Sec (23.4-35.0) 05/05/24 12:33
Sodium 135 mmol/L (135-145) 05/06/24 04:10
Potassium 4.4 mmol/L (3.5-5.1) 05/06/24 04:10
BUN 23 mg/dl (9-20) H 05/06/24 04:10
Glucose 92 mg/dl (70-99) 05/06/24 04:10
Calcium 7.3 mg/dl (8.4-10.2) L 05/06/24 04:10
Phosphorus 3.5 mg/dl (2.5-4.5) 05/06/24 04:10
Ur Buprenorphine Negative (Negative) 05/04/24 11:43
Medications
-
Medications:
Generic Name Dose Route Start Last Admin
Trade Name Freq PRN Reason Stop Dose Admin
Acetaminophen 650 mg 05/04/24 19:03 05/04/24 22:45
Acetaminophen 650 Mg Rectal Suppository RECTAL 06/01/24 19:02 650 mg
Q4HPRN PRN Administration
mild pain/SAUCEDO/temp> 100.4F
Ceftriaxone Sodium 2,000 mg 05/07/24 06:00
Ceftriaxone 2,000 Mg/20 Ml Vial IV
Q24H FIDENCIO
Enoxaparin Sodium 40 mg 05/05/24 18:00 05/05/24 18:41
Enoxaparin Sodium 40 Mg/0.4 Ml Syringe SC 06/02/24 17:59 40 mg
QPM FIDENCIO Administration
Fentanyl Citrate 50 mcg 05/05/24 15:17 05/05/24 23:13
Fentanyl (50 Mcg/Ml) 100 Mcg/2 Ml Ampul IV 05/19/24 15:16 50 mcg
[id number] PRN Administration
see protocol
Protocol
Sodium Chloride 1,000 mls @ 100 mls/hr 05/04/24 19:03 05/06/24 05:04
Nss IV 1,000 mls
.Q10H FIDENCIO Administration
Doxycycline Hyclate 100 mg/ 260 mls @ 260 mls/hr 05/05/24 18:00 05/05/24 21:55
Sodium Chloride IV 260 mls
Q12H FIDENCIO Administration
Phenylephrine HCl 50 mg in 250 mls @ 0 mls/hr 05/05/24 15:45 05/05/24 16:11
Kenneth-Synephrine IV 250 mls
PER PROTOCOL FIDENCIO Administration
Protocol
Per Protocol
Midazolam HCl 50 mg in 100 mls @ 0 mls/hr 05/05/24 16:30 05/06/24 07:16
Versed IV 100 mls
PER PROTOCOL FIDENCIO Administration
Protocol
Per Protocol
Fentanyl Citrate 1,000 mcg in 100 mls @ 0 mls/hr 05/05/24 19:30 05/05/24 19:48
Sublimaze IV 100 mls
PER PROTOCOL FIDENCIO Administration
Protocol
Per Protocol
Propofol 1,000,000 mcg in 100 mls @ 0 mls/hr 05/05/24 19:30 05/06/24 07:01
Diprivan IV 100 mls
PER PROTOCOL FIDECNIO Administration
Protocol
Per Protocol
Acetaminophen 1,000 mg in 100 mls @ 400 mls/hr 05/05/24 19:26 05/06/24 10:01
Ofirmev IV 05/06/24 19:25 100 mls
Q6HPRN PRN Administration
fever>100.3/mild pain
Protocol
Labetalol HCl 10 mg 05/05/24 15:28
Labetalol Hcl 5 Mg/1 Ml (20 Mg/4 Ml) Injection IV 06/02/24 15:27
Q6HPRN PRN
SBP>160
Levetiracetam 1,000 mg 05/05/24 20:00 05/06/24 08:43
Levetiracetam (100 Mg/Ml) 500 Mg/5 Ml Vial IV 06/02/24 19:59 1,000 mg
Q12 FIDENCIO Administration
Midazolam HCl 2 mg 05/05/24 16:00 05/05/24 15:55
Midazolam (Preservative Free) 1 Mg/Ml 2 Ml Vial IV 06/02/24 15:59 2 mg
[id number] PRN Administration
see protocol
Protocol
Pantoprazole Sodium 40 mg 05/06/24 08:00 05/06/24 08:44
Pantoprazole Sodium 40 Mg/10 Ml Vial IV 06/03/24 07:59 40 mg
DAILY FIDENCIO Administration
Polyethylene Glycol 17 grams 05/06/24 08:00 05/06/24 08:59
Polyethylene Glycol Powder 17 Grams Packet TUBE 06/03/24 07:59 Not Given
DAILY FIDENCIO
Sodium Chloride 0 flush 05/04/24 20:00
Sodium Chloride 0.9% (Flush) Syringe IV 06/01/24 19:59
PER PROTOCOL FIDENCIO
Sodium Chloride 10 ml 05/06/24 08:00 05/06/24 08:44
Sodium Chloride 0.9% (Preservative Free) 10 Ml Vial IV 06/03/24 07:59 10 ml
DAILY FIDENCIO Administration
Sterile Water 20 ml 05/07/24 06:00
Sterile Water For Injection 20 Ml Vial IV 06/04/24 05:59
Q24H FIDENCIO
Thiamine HCl 100 mg 05/05/24 11:00 05/06/24 08:44
Thiamine (100 Mg/Ml) 2 Ml Vial IV 05/07/24 08:01 100 mg
DAILY FIDENCIO Administration
Home Medications
-
Home Medications
amoxicillin 500 mg capsule 1,000 mg PO TID Infection 05/04/24
naproxen sodium 220 mg tablet (Aleve) 660 mg PO BIDPRN PRN shoulder pains 05/04/24
--- NOTE | 2024-05-06 10:48 | W.PN.INTV ---
Today's Communication / Plan
Recommendations
Continue antibiotics, has been adjusted based on results of cultures and LP.
MRI later today
EEG results pending
Follow fever curve
Discontinued propofol
Discontinue Versed drip
Wean down fentanyl
Continue mechanical ventilation without change
Follow cultures/serology
Assessment
-
73-year-old man with past medical history noted, admitted to the hospital with cough, congestion, fevers and change in mental status. Found to have pneumonia on CT chest. Started on antibiotics. Mental status did not improve, on 05/05/2024
developed seizure-like activity while on EEG prompting a rapid response. Intubated in the critical care unit during my supervision for airway protection.
Abrupt onset of change in mental status-unclear reason.
Possible seizure activity 05/05/2024
CT head negative-reviewed
CT neck: Negative-reviewed
Normal TSH/Normal Total Ck/Normal Amonia
Fever: Change in mental status-rule out LABORATORY CHEMICAL ASSISTANT infection
Differential diagnosis includes viral meningitis/bacterial meningitis/aseptic meningitis from NSAID.
Lumbar puncture 05/05/2024: Clear appearance/colorless/white blood cells 6/RBCs 49/82% lymphocytes/glucose 82/total protein 130
Alternatively, toxic metabolic encephalopathy from pneumonia and sepsis
Acute hypoxemic respiratory failure recurrent intubation/airway protection-post possible seizure activity transferred to ICU.
Intubated 05/05/2024
Pneumonia: Left lower lobe infiltrate on CAT scan.
CT chest 05/04/2024: Reviewed
No evidence of pulmonary embolus.
Probable moderate left lower lobe pneumonia. Underlying mass not excluded. Repeat exam in 2 weeks after treatment is recommended.
Mild left lower lobe consolidation probable additional pneumonia versus atelectasis.
Mild left hilar lymphadenopathy. Probably reactive.
Condition present prior admission:
Frozen left shoulder
Usually does not visit doctors
Never smoker
No history of alcohol use
Assessment and plan:
Patient is critically ill-transferred to the critical care unit 05/05/2024 after seizure-like activity
Emergently intubated by anesthesia at the bedside under my supervision.
-
Suspicion for possible LABORATORY CHEMICAL ASSISTANT infection: Possible meningoencephalitis- . Patient remains febrile.
Hemodynamically not requiring vasopressors.
Lumbar puncture noted: 05/05/2024-hypocellular/increased protein level at 130/normal glucose at 82/colorless.
Gram stain negative
Meningoencephalitis PCR panel negative
West Nile viral serology pending.
Negative COVID
Negative influenza
Negative blood cultures
MRSA screen negative
-
Continues to be febrile.
Discussed with infectious disease-antibiotics have been adjusted. Antiviral discontinued.
MRI later today
EEG performed this morning-results pending. Clinically no signs of seizures.
Wait for neurology reevaluation.
-
So far all other diagnostic testing negative: Normal TSH, normal ammonia, normal CK, normal renal function, UA without proteinuria, normal LFTs.
Continue supportive care for now.
Patient has been taking high-dose Aleve for left shoulder pain-diagnosis of exclusion.
-
Pneumonia on CAT scan: Continue antibiotics
Sputum culture pending
Not requiring increased oxygen supplementation per
-
Continue Keppra for now-defer to neurology.
Versed drip has been discontinued
Propofol has been discontinued
If EEG shows no evidence for seizure activity, discontinue all sedatives and reevaluate mental status.
-
Mechanical ventilation settings reviewed
Pulmonary mechanics acceptable for his body habitus and pneumonia.
No significant secretion
Not bronchospastic on exam
ABG 05/06/2024 with adequate oxygenation and ventilation
Continue settings without change
Not ready for spontaneous breathing trial
-
Sedation as above.
-
Hypotension resolved after IV fluids. Likely due to sedation.
Normal renal function
Victoria urinary output-Victoria in place
No longer requiring vasopressors
-
N.p.o. for now
Head of the bed elevation
DVT prophylaxis heparin subcu
Protonix for GI prophylaxis
-
Glycemic control per protocol
-
Dr. Chau updated extensively multiple family members on 05/06/2024.
Dr. Chau personally discussed with multiple family members 05/05/2024: In general patient does not goes to doctor. He is relatively healthy.
He is a never smoker.
Reviewed differential diagnosis and plan going forward.
-
Case reviewed with neurology, infectious and primary team.
-
Critical care statement: A total of 60 minutes of critical care time was provided for this patient today. This includes management of unstable vital signs, evaluation of the patient at bedside, reviewing the patient's pertinent medical records
including ventilator settings, arterial blood gases, radiographs, microbiology, laboratory evaluations and discussion with primary team, critical care nursing, and respiratory therapy.
Subjective Dataa
Subjective Data
Date of Service:
Date of Service: May 06, 2024
Chief Complaint: [facility] Follow Up (Toxic metabolic encephalopathy/respiratory failure) and Vent Management Follow Up
Subjective:
Critically ill, on mechanical ventilation
Sedated
Not requiring vasopressors
Review of Systems
General: Fever and Unobtainable - Sedation
Objective Data
Data Reviewed
Vital Signs / I&O / Oxygen:
Vital Signs
Temp Pulse Resp BP Pulse Ox
101.0 F H 89 18 132/83 92
05/06/24 10:00 05/06/24 10:15 05/06/24 10:15 05/06/24 10:15 05/06/24 10:15
Intake and Output
05/05/24 05/06/24 05/07/24
06:59 06:59 06:59
Intake Total 3050.0 / 3206.3 766.3 / 766.3
Output Total 840 / 855 100 / 100
Balance 2210.0 / 2351.3 666.3 / 666.3
SaO2 [A/C] 96
SaO2 92
Nasal Cannula flow liters per 2
minute
Physical Exam
General: Comfortable
HEENT: Normocephalic
Cardiovascular: S1-S2
Respiratory: Clear, Non-Labored Respirations and ET Tube (No secretions)
GI: Soft and Non Distended
Neurology: Other (Sedated, mechanical ventilation, overbreathing the ventilator. Has a cough reflex. Rest of the physical exam limited due to sedation)
Skin: Warm
Labs/Micro/Reports
Lab Data
05/06/24 04:10
05/06/24 04:10
Laboratory Results
05/05/24 05/05/24 05/06/24
12:33 18:27 04:49
PT 14.6
INR 1.16
APTT 33.4
pH 7.43 7.38
pCO2 37 38
pO2 74 L 140 H
HCO3 24.6 22.5
O2 Delivery Level Vent
Microbiology
05/05/24 20:19 Sputum Gram Stain - Preliminary
05/05/24 01:44 Blood/Venous Blood Culture - Preliminary
No Growth in 24 hours- Final report to follow
05/05/24 17:00 Csf Meningitis/Encephalitis Panel (PCR) - Final
05/04/24 21:34 Blood/Venous Blood Culture - Preliminary
No Growth in 24 hours- Final report to follow
05/05/24 17:00 Csf Gram Stain - Preliminary
05/04/24 00:00 Nose Nasal Screen MRSA (PCR) - Final
MRSA not detected - performed by PCR methodology.
05/04/24 21:37 Urine Legionella Urinary Antigen - Final
Negative for Legionella pneumophila Serogroup 1 antigen.
A negative result does not rule out the possiblity of
Legionella infection due to other serogroups or species of
Legionella. Clinical correlation is recommended.
05/04/24 21:37 Urine Streptococcus pneumoniae Antigen (M - Final
Negative for Streptococcus pneumoniae antigen.
A negative result does not exclude infection with
Streptococcus pneumoniae. Clinical correlation is
recommended.
05/04/24 11:27 Nasal Swab Influenza Types A & B (KEVON) - Final
Negative for Influenza A & B, NAAT
Negative results must be combined with clinical observations
and patient history.
Nucleic Acid Amplification test (NAAT)performed on the
[employer] platform.
[2024-05-06] MEDS: VIBRAMYCIN 260 MG IV ×2 (11:28→21:32)
--- NOTE | 2024-05-06 11:43 | PTCARENOTE ---
Prop/versed gtts remain off since prior to EEG; fent gtt off @ 1000 for continued SAT- see flow sheet. Pt. remains lethargic; does not open eyes spont/ no tracking; + w/draws to painful stim. Repositioned per protocol. EEG completed @ bedside
this AM, awaiting results.
--- NOTE | 2024-05-06 12:19 | EEG.RPT ---
Electroencephalogram Report
Recording
Date of EE05/06/24
Type of EEG: Routine
Length of EEG recordin minutes
Done with Video Recording: Yes
Patient Status: Inpatient
Recording Conditions: Awake and Drowsy
Hyperventilation Performed: No
Photic Stimulation Performed: Yes
Report
LESS THAN 1 HOUR REPORT
LESS THAN 1 HOUR EEG INTERPRETATION:
Moderately-severely abnormal EEG for age due to diffuse loss of normal organization
CLINICAL CORRELATION:
This study was suggestive of diffuse cortical dysfunction without focal abnormality. No seizures were recorded.
In comparison with the prior study, this study was worse as there was reduced cortical activity.
Clinical correlation is advised.
METHODS:
A 21 channel digitized electroencephalogram (EEG) was performed in the ICU. The 10/20 international system of electrode placement was used with ECG and lateral/vertical eye movements recorded. Video was recorded. The [employer] quantitative EEG system
was utilized.
QUALITY OF STUDY:
Good
ELECTROENCEPHALOGRAPHER IMPRESSION(S):
Background
Low amplitude unorganized anterior-posterior voltage gradient of beta activity
Periods of unmeasurable electrical activity lasting up to 3 seconds were demonstrated intermittently.
There were no significant asymmetries of background activity noted.
Sleep
Not recorded
Photic Stimulation
Failed to activate the record
ECG
Unremarkable
--- NOTE | 2024-05-06 12:24 | PTCARENOTE ---
Pt. off all sedation for approx 2.5H; remains lethargic/unresponsive. Not withdrawing to painful stimuli. +Babinski. Plan for MRI @ 2200 tonight. Neurology, Dr. Busch, made aware of neuro findings/MRI timing. Family remains @ bedside,
emotional support given. Safe environment maintained.
--- NOTE | 2024-05-06 15:53 | PN.CDI ---
CDI
- -
CDI:
Physician Documentation Request
Admit Date: 05/04/24 16:25
Dear Doctor Do,
Please review the following and provide your response in the progress notes.
Current documentation includes a diagnosis of hypotension.
Clinical Indicators:
Pt admitted with sepsis /Pneumonia and possible encephalitis /metabolic encephalopathy
Patient care note 05/05 @ 2006, ' ...BP 87/70.Dr Pavon made aware.LR bolus administered as ordered.1611- Phenylephrine initiated.IVF infusing.....'
Progress note 05/06, ' Hypotension Phenylephrine drip.....'
Ground Worker note 05/06, ' Hypotension resolved after IV fluids. Likely due to sedation....No longer requiring vasopressors...'
05/05/24
15:30 05/05/24
15:41 05/05/24
16:00
Blood pressure 88/73 90/73 87/70
Please clarify which of the following is the most likely etiology of the above symptoms and treatment rendered:
Septic shock
Drug induced shock
Hypotension only
Other( please specify)
Use of terms such as suspected, likely, concern for, or probable (associated with a specific diagnosis that is being evaluated, monitored, or treated as if it exists) are acceptable and can be coded in the inpatient setting, when documented at the
time of discharge.
Thank you,
Marjan Winter RN
CDI Specialist
[place] [facility]
Please use your independent medical judgment in providing your response.
--- NOTE | 2024-05-06 17:02 | CM ---
Patient who had witnessed fall at home with Dx Fever, Sepsis, Encephalitis, Multifactorial encephalopathy. Intubated for airway protection 05/05. Receiving IV acetaminophen gtt, IV Abx, IV Keppra, Neosynephrine gtt. EEG today. Plan MRI. Per
nursing assessment; remains lethargic/unresponsive, not withdrawing to painful stimuli. PT/OT on hold.
CM continuing to follow for d/c needs.
Plan TBD.
[2024-05-06] MEDS: TRANDATE 10 MG IV (17:43)
[2024-05-06] MEDS: LOVENOX 40 MG SC (17:43)
--- NOTE | 2024-05-06 18:11 | PTCARENOTE ---
Upon repositioning pt., eyes opened spontaneously. No tracking/not following commands. Inconsistent w/draw to painful stimuli. Remains off all sedation. IVF infusing via R DL PICC. Low grade fever- 100.7- medicated w PRN Tylenol and cooling
blanket remains on. Family @ bedside, updated on plan of care.
--- NOTE | 2024-05-06 20:00 | PTCARENOTE ---
Received pt via handoff. Pt withdraws to pain, opens eyes spontaneously 2+3 sluggish, cooling blanket running. NSR, trace edema with palpable pulses in upper and lower extremities bilaterally. Coarse rhonchi scattered throughout. Intubated #8,
24@lip in the center. A/C: 14/500/40%/5. Hypoactive bowel sounds, round and obese. Temp sensing Victoria draining yellow sedimentary urine. Skin warm, diaphoretic with a light odor. NS gtt running see flowsheet. Family at bedside, will continue to
monitor.
[2024-05-07] VITALS (52 sets, daily range): BP systolic 126–195; BP diastolic 69–113; BMI 39.0
--- NOTE | 2024-05-07 | PTCARENOTE ---
Pt transported to MRI without complications, back in room now, new temp sensing Victoria place, hygiene performed. Will continue to monitor.
[2024-05-07 03:50] LABS: Hematocrit 31.5 % (39.0-52.0); Mean Corp Hgb Conc. 34.9 g/dL (33.0-37.0); Mean Corpuscular Hgb 34.2 pg (27.0-31.0); Mean Corpuscular Volume 97.8 fL (80.0-94.0); Mean Platelet Volume 9.8 fL (7.4-10.4); Platelet Count 109 10^3/uL (130-400); Red Blood Cell Count 3.22 10^6/uL (4.70-6.10); Red Cell Dist. Width 13.2 % (11.5-14.5); White Blood Cell Count 7.1 10^3/uL (4.8-10.8)
[2024-05-07] MEDS: NSS 1000 IV (03:58)
[2024-05-07 04:37] LABS: ALT (SGPT) 33 U/L (0-50); AST (SGOT) 48 U/L (17-59); Albumin 3.1 g/dl (3.5-5.0); Alkaline Phosphatase 45 U/L (38-126); Blood Urea Nitrogen 20 mg/dl (9-20); Calcium 7.2 mg/dl (8.4-10.2); Carbon Dioxide 21 mmol/L (22-30); Chloride 106 mmol/L (98-107); Estimated Creatinine Clearance > 125 ml/min; Glucose 87 mg/dl (70-99); Potassium 3.5 mmol/L (3.5-5.1); Sodium 137 mmol/L (135-145); Total Bilirubin 0.9 mg/dl (0.2-1.3); Total Protein 5.6 g/dl (6.3-8.2); eGFR > 60.00
--- NOTE | 2024-05-07 04:58 | PTCARENOTE ---
Addendum entered by Teofilo Jalloh RN 05/07/24 05:14:
Urine sediment decreased, much more clear than beginning of shift.
Original Note:
Pt opening eyes more frequently now, blinking spontaneously. Labs drawn. All systems reassessed, will continue to monitor.
[2024-05-07] MEDS: STERILE WATER FOR INJECTION 20 ML IV (05:02)
[2024-05-07] MEDS: ROCEPHIN 2000 MG IV (05:02)
[2024-05-07] MEDS: CALCIUM GLUCONATE 100 IV (05:53)
[2024-05-07] MEDS: KCL 160 MEQ IV (05:53)
--- NOTE | 2024-05-07 07:40 | W.PN.HOSP.TC ---
Today's Communication/Plan
-
see bold
Assessment / Plan
Assessment / Plan
HPI: 73-year-old male past medical history of left shoulder injury presenting to the emergency room for fall and altered mental status. History is obtained from patient's [id number] who is a nurse. Patient has been having productive cough with
chest congestion for the past 2 weeks. He had been self-medicating with 3 Aleve in the morning and 3 Aleve at night as well as DayQuil and NyQuil's. He also had some amoxicillin which he was taking.
This morning he was noted to be lethargic while he was walking he was leaning to 1 side and had a witnessed fall. This was witnessed by patient's brother. Medics were called. On arrival patient was awake and alert but having difficulty following
commands and was nonverbal. Patient was last seen normal yesterday evening.
#Fever
#Sepsis
#Encephalitis
#Multifactorial encephalopathy
Appreciate neurology and ID input, LP not consistent with meningitis, acyclovir/Vanco/ampicillin discontinued
HSV/VZV/CMV/HHV6/enterovirus/listeria negative by PCR on CSF
Brain MRI neg for CVA, shows nonspecific changes with mild atrophy, Lyme/West Nile serology pending
Continue Rocephin and doxycycline
#Intubated for airway protection 05/05
Appreciate nurse practitioner hospitalist input, continue vent management as per nurse practitioner hospitalist -likely for extubation today
#Possible pneumonia
Continue antibiotics as above
#Possible seizure activity on 05/05
Intubated for airway protection 05/05
Transferred to the ICU
EEG negative, plan for EEG off of sedation
Status post Versed drip, Keppra dose reduced to 750 mg IV every 12 hours as per neurology
# Drug-induced hypotension
Resolved status post phenylephrine drip
#Hypertensive urgency
Labetalol IV as needed
#Obesity due to excess calories
Affects all aspects of care
#Recent dental procedure
DVT prophylaxis�subcu Lovenox
GI prophylaxis�Protonix
Full code
Total time spent to see the patient on the floor, examine the patient, review data and lab results, discuss treatment plan with patient, nursing staff around 41 minutes.
Physical Exam
General: Appears acutely ill
HEENT: Normocephalic, Atraumatic, EOMI, MMM
Respiratory: Clear to Auscultation bilaterally
Cardiac: Normal S1/S2, Regular Rate and Rhythm
GI: Soft, Nontender, Nondistended, Normal Bowel Sounds
Extremities: No Clubbing, Cyanosis
Neuro: Not answering questions, not following commands, cogwheel rigidity noted
Anticipated Discharge: > 48 hours
Subjective/Interval History
-
Date of Service: May 07, 2024
Patient intubated and sedated. Continues to be febrile.
Objective Data
-
Labs:
Laboratory Results
05/07/24
03:28
WBC 7.1
Hgb 11.0 L
Hct 31.5 L
Plt Count 109 L
Sodium 137
Potassium 3.5
Chloride 106
Carbon Dioxide 21 L
BUN 20
Creatinine 0.6 L
Glucose 87
Calcium 7.2 L
Total Bilirubin 0.9
AST 48
ALT 33
Alkaline Phosphatase 45
Vital Signs:
Vital Signs
Temp Pulse Resp BP Pulse Ox
100.1 F 84 15 151/91 97
05/07/24 03:33 05/07/24 06:00 05/07/24 06:00 05/07/24 06:00 05/07/24 06:00
I&O
05/06/24 05/07/24 05/08/24
06:59 06:59 06:59
Intake Total 3050.0 / 3206.3 3526.3 / 3526.3
Output Total 840 / 855 1165 / 1165
Balance 2210.0 / 2351.3 2361.3 / 2361.3
--- NOTE | 2024-05-07 08:00 | PTCARENOTE ---
Received pt with eyes closed.Eyes open briefly to persistent tactile stimulation.Brisk withdrawal to noxious stimuli bl upper and lower extremities.KRISHNA 3mm.SR noted.Right DL PICC intact with IVF.#8 ETT to vent.Coarse rhonchi throughout.Suctioned
for moderate amount thick melvin secretions.POX 97%SBT initiated at 0800.No BM.Victoria draining chad urine.Pt's extended family at bedside.Plan of care discussed with his daughter Stephanie.
[2024-05-07] MEDS: NSS (PRESERVATIVE FREE) 10 ML IV (08:53)
[2024-05-07] MEDS: PROTONIX IV 40 MG IV (08:53)
[2024-05-07] MEDS: THIAMINE INJECTION 100 MG IV (08:53)
[2024-05-07] MEDS: KEPPRA 1000 MG IV (08:53)
[2024-05-07] MEDS: MIRALAX TUBE (08:54)
--- NOTE | 2024-05-07 09:02 | W.PN.ID1 ---
Date of Service
Date of Service: May 07, 2024
Today's Communication
encephalitis
continue ceftriaxone and doxycycline
Assessment / Plan
Encephalitis
- fever curve improved - fever via core route defined as over 101.0
- assessing for potentially treatable causes which patient has potential exposure to, note the differential is extensive but much would be supportive
- blood cultures x2 in progress
- HSV/VZV/CMV/HHV6/enterovirus/listeria negative by PCR on CSF with good sensitivity
- lyme serology - in progress
- influenza was negative by pcr
- west nile serology on serum in progress
- west nile serology of CSF added on
- syphilis serology on serum sent pending
- c/w empiric doxycycline
Possible pneumonia
- blood cultures x2 in progress
- resp culture: few mixed bacterial morphotypes on gram stain - culture in progress
- agree with radiology rec to repeat imaging in a few weeks for clearance - can be done with PCP
- continue ceftriaxone (dose adjusted) and doxycycline - doxycycline can be converted to oral when feasible
follow clinically
Chief Complaint
-: Other (encephalitis)
Subjective / Review of Systems
fever curve improved
bp stable
withdraws to pain, blinking spontaneously
Vital Signs / Physical Exam
Vital Signs
Vital Signs
Temp Pulse Resp BP Pulse Ox
100.2 F 86 22 151/91 100
05/07/24 07:48 05/07/24 08:22 05/07/24 08:22 05/07/24 06:00 05/07/24 08:22
Physical Exam
Constitutional: No Acute Distress
Cardiovascular: Regular Rate and S1/S2; Negative Murmur or Rub
Pulmonary: Clear and Symmetric; Negative Wheezes or Rales
Gastrointestinal: Soft, Non Tender, Non Distended and Normal Bowel Sounds
Skin: Warm and Dry; Negative Rash or Jaundice
Objective Data
Lab Data
Lab Results
05/07/24 03:28
05/07/24 03:28
PT 14.6 Sec (11.4-14.6) 05/05/24 12:33
INR 1.16 05/05/24 12:33
APTT 33.4 Sec (23.4-35.0) 05/05/24 12:33
Estimated Creat Clear > 125 ml/min 05/07/24 03:28
Lactic Acid Cancelled 05/04/24 15:15
Total Bilirubin 0.9 mg/dl (0.2-1.3) 05/07/24 03:28
AST 48 U/L (17-59) 05/07/24 03:28
ALT 33 U/L (0-50) 05/07/24 03:28
Alkaline Phosphatase 45 U/L (38-126) 05/07/24 03:28
Most recent labs reviewed.
MRI: Image Reviewed and Report Reviewed (nonspecific encephalopathy with diffuse mildly hyperintense FLAIR and DWI signal throughout the cortices of the bilateral cerebral hemispheres.)
Micro Results:
05/05/24 01:44 Blood Culture - Preliminary
Blood/Venous No Growth in 48 hours- Final report to follow
05/04/24 21:34 Blood Culture - Preliminary
Blood/Venous No Growth in 48 hours- Final report to follow
05/05/24 17:00 CSF Culture - Preliminary
Csf No Growth After 18-24 Hours
Gram Stain - Preliminary
05/05/24 20:19 Respiratory Culture - Pending
Sputum Gram Stain - Preliminary
05/05/24 17:00 Meningitis/Encephalitis Panel (PCR) - Final
Csf
05/04/24 00:00 Nasal Screen MRSA (PCR) - Final
Nose MRSA not detected - performed by PCR methodology.
05/04/24 21:37 Legionella Urinary Antigen - Final
Urine Negative for Legionella pneumophila Serogroup 1 antigen.
A negative result does not rule out the possiblity of
Legionella infection due to other serogroups or species of
Legionella. Clinical correlation is recommended.
Streptococcus pneumoniae Antigen (M - Final
Negative for Streptococcus pneumoniae antigen.
A negative result does not exclude infection with
Streptococcus pneumoniae. Clinical correlation is
recommended.
05/04/24 11:27 Influenza Types A & B (KEVON) - Final
Nasal Swab Negative for Influenza A & B, NAAT
Negative results must be combined with clinical observations
and patient history.
Nucleic Acid Amplification test (NAAT)performed on the
[employer] platform.
[2024-05-07 09:39] LABS: B.E. -2.2 mmol/L; HCO3 22.4 mmol/L (21-28); O2 Saturation % 99.4 % (94-98); PCO2 37 mmHg (35-48); PO2 89 mmHg (83-108); pH 7.39 (7.35-7.45)
--- NOTE | 2024-05-07 10:02 | W.PN.NEURO.1 ---
Today's Communication / Plan
-
.
Subjective/Objective
Subjective Data
Date of Service: May 07, 2024
mild signal alteration of the bilateral cerebral cortices with hyperintense FLAIR signal and hyperintense DWI signal.
Neurology follow-up note
24-hour events. afebrile, mildly hypertensive. Off sedation, pressor.
Routine EEG(05/06/2024)�diffuse cortical dysfunction without focal abnormality. No seizures were recorded.In comparison with the prior study, this study was worse as there was reduced cortical activity.
Brain [place]�mild signal alteration of the bilateral cerebral cortices with hyperintense FLAIR and DWI signal.
CXR(05/05/2024) no active cardiopulmonary disease.
PMH: no prior medical care
PSH: leg ORIF in childhood
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
FH: DM, CAD
All: NKDA
ROS: limited due to encephalopathy
General: Intubated, restrained
Cardio: Regular rate.
Neuro:
Mental Status: awakens to sternal rub. Attends briefly. Does not follow requests
CN: Orthophoric primary gaze. Pupils 3 mm, reactive. + corneals, gag
Motor: moves all limbs within bedplane
Reflexes: no clonus
Sensory: grimaces to noxious stimuli
Coordination: No tremors myoclonic movements.
Gait: unable
Assessment and Plan:
1. Multifactorial encephalopathy (toxic, infectious), clinically improved
2. Encephalitis
3. Hypotension, resolved
-seizure precautions
-Reduce Keppra to 750 mg BID
-ID follow up
-Will continue to monitor
I personally reviewed all radiology and labs along with past medical records pertinent to current medical problems. Total time spent in patient care is 36 minutes.
Thank you for allowing us to participate in the care of this patient. We will continue to follow. Please do not hesitate to contact us with any questions or concerns.
Objective Data
Vital Signs
Temp Pulse Resp BP Pulse Ox
37.9 C 86 22 151/91 100
05/07/24 07:48 05/07/24 08:22 05/07/24 08:22 05/07/24 06:00 05/07/24 08:22
Lab Results
05/07/24 03:28
05/07/24 03:28
PT 14.6 Sec (11.4-14.6) 05/05/24 12:33
INR 1.16 05/05/24 12:33
APTT 33.4 Sec (23.4-35.0) 05/05/24 12:33
Sodium 137 mmol/L (135-145) 05/07/24 03:28
Potassium 3.5 mmol/L (3.5-5.1) 05/07/24 03:28
BUN 20 mg/dl (9-20) 05/07/24 03:28
Glucose 87 mg/dl (70-99) 05/07/24 03:28
Calcium 7.2 mg/dl (8.4-10.2) L 05/07/24 03:28
Phosphorus 3.5 mg/dl (2.5-4.5) 05/06/24 04:10
Ur Buprenorphine Negative (Negative) 05/04/24 11:43
Patient Allergies
No Known Allergies Allergy (Verified 11/05/13 17:57)
Vital Signs and Labs
-
Vital Signs and Labs:
Vital Signs
Temp Pulse Resp BP Pulse Ox
37.9 C 86 22 151/91 100
05/07/24 07:48 05/07/24 08:22 05/07/24 08:22 05/07/24 06:00 05/07/24 08:22
Lab Results
05/07/24 03:28
05/07/24 03:28
PT 14.6 Sec (11.4-14.6) 05/05/24 12:33
INR 1.16 05/05/24 12:33
APTT 33.4 Sec (23.4-35.0) 05/05/24 12:33
Sodium 137 mmol/L (135-145) 05/07/24 03:28
Potassium 3.5 mmol/L (3.5-5.1) 05/07/24 03:28
BUN 20 mg/dl (9-20) 05/07/24 03:28
Glucose 87 mg/dl (70-99) 05/07/24 03:28
Calcium 7.2 mg/dl (8.4-10.2) L 05/07/24 03:28
Phosphorus 3.5 mg/dl (2.5-4.5) 05/06/24 04:10
Ur Buprenorphine Negative (Negative) 05/04/24 11:43
Medications
-
Medications:
Generic Name Dose Route Start Last Admin
Trade Name Freq PRN Reason Stop Dose Admin
Acetaminophen 650 mg 05/04/24 19:03 05/04/24 22:45
Acetaminophen 650 Mg Rectal Suppository RECTAL 06/01/24 19:02 650 mg
Q4HPRN PRN Administration
mild pain/SAUCEDO/temp> 100.4F
Ceftriaxone Sodium 2,000 mg 05/07/24 06:00 05/07/24 05:02
Ceftriaxone 2,000 Mg/20 Ml Vial IV 2,000 mg
Q24H FIDENCIO Administration
Enoxaparin Sodium 40 mg 05/05/24 18:00 05/06/24 17:43
Enoxaparin Sodium 40 Mg/0.4 Ml Syringe SC 06/02/24 17:59 40 mg
QPM FIDENCIO Administration
Fentanyl Citrate 50 mcg 05/05/24 15:17 05/05/24 23:13
Fentanyl (50 Mcg/Ml) 100 Mcg/2 Ml Ampul IV 05/19/24 15:16 50 mcg
[id number] PRN Administration
see protocol
Protocol
Doxycycline Hyclate 100 mg/ 260 mls @ 260 mls/hr 05/05/24 18:00 05/06/24 21:32
Sodium Chloride IV 260 mls
Q12H FIDENCIO Administration
Sodium Chloride 1,000 mls @ 100 mls/hr 05/07/24 00:30 05/07/24 03:58
Nss IV 1,000 mls
.Q10H FIDENCIO Administration
Labetalol HCl 10 mg 05/06/24 16:16 05/06/24 17:43
Labetalol Hcl 5 Mg/1 Ml (20 Mg/4 Ml) Injection IV 06/03/24 16:15 10 mg
Q6HPRN PRN Administration
Systolic blood pressure>160
Levetiracetam 1,000 mg 05/05/24 20:00 05/07/24 08:53
Levetiracetam (100 Mg/Ml) 500 Mg/5 Ml Vial IV 06/02/24 19:59 1,000 mg
Q12 FIDENCIO Administration
Midazolam HCl 2 mg 05/05/24 16:00 05/05/24 15:55
Midazolam (Preservative Free) 1 Mg/Ml 2 Ml Vial IV 06/02/24 15:59 2 mg
[id number] PRN Administration
SEIZURE
Pantoprazole Sodium 40 mg 05/06/24 08:00 05/07/24 08:53
Pantoprazole Sodium 40 Mg/10 Ml Vial IV 06/03/24 07:59 40 mg
DAILY FIDENCIO Administration
Polyethylene Glycol 17 grams 05/06/24 08:00 05/07/24 08:54
Polyethylene Glycol Powder 17 Grams Packet TUBE 06/03/24 07:59 Not Given
DAILY FIDENCIO
Sodium Chloride 0 flush 05/04/24 20:00
Sodium Chloride 0.9% (Flush) Syringe IV 06/01/24 19:59
PER PROTOCOL FIDENCIO
Sodium Chloride 10 ml 05/06/24 08:00 05/07/24 08:53
Sodium Chloride 0.9% (Preservative Free) 10 Ml Vial IV 06/03/24 07:59 10 ml
DAILY FIDENCIO Administration
Sterile Water 20 ml 05/07/24 06:00 05/07/24 05:02
Sterile Water For Injection 20 Ml Vial IV 06/04/24 05:59 20 ml
Q24H FIDENCIO Administration
Home Medications
-
Home Medications
amoxicillin 500 mg capsule 1,000 mg PO TID Infection 05/04/24
naproxen sodium 220 mg tablet (Aleve) 660 mg PO BIDPRN PRN shoulder pains 05/04/24
[2024-05-07] MEDS: VIBRAMYCIN 260 MG IV ×2 (10:42→21:13)
[2024-05-07] MEDS: NSS IV (10:42)
--- NOTE | 2024-05-07 10:45 | W.PN.INTV ---
Today's Communication / Plan
Recommendations
Spontaneous breathing trial
Extubation today
Avoid sedatives
Continue ox supplementation
Dobbhoff in place
Nutritional support later today
Continue antibiotics
Monitor fever
Assessment
-
73-year-old man with past medical history noted, admitted to the hospital with cough, congestion, fevers and change in mental status. Found to have pneumonia on CT chest. Started on antibiotics. Mental status did not improve, on 05/05/2024
developed seizure-like activity while on EEG prompting a rapid response. Intubated in the critical care unit during my supervision for airway protection.
Abrupt onset of change in mental status-unclear reason.
Possible seizure activity 05/05/2024
CT head negative-reviewed
CT neck: Negative-reviewed
Normal TSH/Normal Total Ck/Normal Amonia
Fever: Change in mental status-rule out INSURANCE ATTORNEY infection
Differential diagnosis includes viral meningitis/bacterial meningitis/aseptic meningitis from NSAID.
Lumbar puncture 05/05/2024: Clear appearance/colorless/white blood cells 6/RBCs 49/82% lymphocytes/glucose 82/total protein 130
Alternatively, toxic metabolic encephalopathy from pneumonia and sepsis
Acute hypoxemic respiratory failure recurrent intubation/airway protection-post possible seizure activity transferred to ICU.
Intubated 05/05/2024
Pneumonia: Left lower lobe infiltrate on CAT scan.
CT chest 05/04/2024: Reviewed
No evidence of pulmonary embolus.
Probable moderate left lower lobe pneumonia. Underlying mass not excluded. Repeat exam in 2 weeks after treatment is recommended.
Mild left lower lobe consolidation probable additional pneumonia versus atelectasis.
Mild left hilar lymphadenopathy. Probably reactive.
Condition present prior admission:
Frozen left shoulder
Usually does not visit doctors
Never smoker
No history of alcohol use
Assessment and plan:
Patient is critically ill-transferred to the critical care unit 05/05/2024 after seizure-like activity
Emergently intubated by anesthesia at the bedside under my supervision.
-
Suspicion for possible INSURANCE ATTORNEY infection: Possible meningoencephalitis.
Hemodynamically not requiring vasopressors.
Lumbar puncture noted: 05/05/2024-hypocellular/increased protein level at 130/normal glucose at 82/colorless.
Gram stain negative.
Meningoencephalitis PCR panel negative
West Nile viral serology pending.
Negative COVID
Negative influenza
Negative blood cultures
MRSA screen negative
-
Fever curve improving. 05/07/2024.
Continue antibiotics to cover for pneumonia
MRI: Nonspecific changes. Mild atrophy.
EEG-no evidence for seizures.
Neurology and infectious disease continue to follow
-
So far all other diagnostic testing negative: Normal TSH, normal ammonia, normal CK, normal renal function, UA without proteinuria, normal LFTs.
Continue supportive care for now.
Patient has been taking high-dose Aleve for left shoulder pain-diagnosis of exclusion.
-
Pneumonia on CAT scan: Continue antibiotics
Sputum culture pending.
-
Continue Keppra for now-defer to neurology.
Has been off sedation since yesterday.
Mental status slowly improving.
Coughing to suction and occasionally spontaneously.
Opening eyes with stimuli
Still not following commands
Able to move 4 extremities
-
Mechanical ventilation settings reviewed
Pulmonary mechanics acceptable for his body habitus and pneumonia.
No significant secretion
Not bronchospastic on exam
ABG 05/06/2024 with adequate oxygenation and ventilation
Continue settings without change
-
Spontaneous breathing trial for about 1-1/2 hours on pressure support ventilation. Remained hemodynamically stable. Not tachycardic
No oxygen requirement
ABG reviewed, it is appropriate.
Patient has cough with suctioning and occasionally spontaneously.
Occasionally moving 4 extremities
Still somnolent but think will be best to extubate.
Family at the bedside.
Will proceed with extubation to oxygen supplementation.
Avoid any sedatives
Head of the bed elevation
N.p.o.
-
Hypotension resolved.
Not requiring vasopressors for longer than 24 hours.
Normal renal function
Victoria urinary output-Victoria in place
-
N.p.o. for now
Dobbhoff tube has been placed 05/07/2024.
Likely will start tube feedings later today
Head of the bed elevation
DVT prophylaxis heparin subcu
Protonix for GI prophylaxis
-
Glycemic control per protocol
-
Dr. Chau updated extensively multiple family members on 05/06/2024 and 05/07/2024.
Dr. Chau personally discussed with multiple family members 05/05/2024: In general patient does not goes to doctor. He is relatively healthy.
He is a never smoker.
Reviewed differential diagnosis and plan going forward.
-
Case reviewed with neurology, infectious and primary team.
-
Critical care statement: A total of 40 minutes of critical care time was provided for this patient today. This includes management of unstable vital signs, evaluation of the patient at bedside, reviewing the patient's pertinent medical records
including ventilator settings, arterial blood gases, radiographs, microbiology, laboratory evaluations and discussion with primary team, critical care nursing, and respiratory therapy.
Subjective Dataa
Subjective Data
Date of Service:
Date of Service: May 07, 2024
Chief Complaint: Prototyper Follow Up (Toxic metabolic encephalopathy/respiratory failure) and Vent Management Follow Up
Subjective:
Remain off sedation overnight
Opening eyes with stimuli
Not requiring vasopressor
Remains on mechanical ventilation, critically ill.
Fever curve improved
Review of Systems
General: Other (Unable to obtain, ventilator status. Still lethargic)
Objective Data
Data Reviewed
Vital Signs / I&O / Oxygen:
Vital Signs
Temp Pulse Resp BP Pulse Ox
100.2 F 86 22 151/91 100
05/07/24 07:48 05/07/24 08:22 05/07/24 08:22 05/07/24 06:00 05/07/24 08:22
Intake and Output
05/06/24 05/07/24 05/08/24
06:59 06:59 06:59
Intake Total 3050.0 / 3206.3 3526.3 / 3526.3
Output Total 840 / 855 1165 / 1165
Balance 2210.0 / 2351.3 2361.3 / 2361.3
SaO2 [A/C] 97
SaO2 100
Nasal Cannula flow liters per 2
minute
Physical Exam
General: Comfortable
HEENT: Normocephalic and Other (ET tube in place, scant secretions)
Cardiovascular: S1-S2
Respiratory: Clear, Non-Labored Respirations and ET Tube (No secretions)
GI: Soft and Distended (Obese)
Neurology: Other (Off sedation, coughing to suction, spontaneously breathing, opening eyes with stimuli- still not following commands)
Skin: Warm
Labs/Micro/Reports
Lab Data
05/07/24 03:28
05/07/24 03:28
Laboratory Results
05/07/24 05/07/24
09:29 15:08
pH 7.39 Cancelled
pCO2 37 Cancelled
pO2 89 Cancelled
HCO3 22.4 Cancelled
O2 Delivery Level Cancelled
Microbiology
05/05/24 01:44 Blood/Venous Blood Culture - Preliminary
No Growth in 48 hours- Final report to follow
05/04/24 21:34 Blood/Venous Blood Culture - Preliminary
No Growth in 48 hours- Final report to follow
05/05/24 17:00 Csf CSF Culture - Preliminary
No Growth After 18-24 Hours
05/05/24 17:00 Csf Gram Stain - Preliminary
05/05/24 20:19 Sputum Gram Stain - Preliminary
05/05/24 17:00 Csf Meningitis/Encephalitis Panel (PCR) - Final
05/04/24 00:00 Nose Nasal Screen MRSA (PCR) - Final
MRSA not detected - performed by PCR methodology.
05/04/24 21:37 Urine Legionella Urinary Antigen - Final
Negative for Legionella pneumophila Serogroup 1 antigen.
A negative result does not rule out the possiblity of
Legionella infection due to other serogroups or species of
Legionella. Clinical correlation is recommended.
05/04/24 21:37 Urine Streptococcus pneumoniae Antigen (M - Final
Negative for Streptococcus pneumoniae antigen.
A negative result does not exclude infection with
Streptococcus pneumoniae. Clinical correlation is
recommended.
05/04/24 11:27 Nasal Swab Influenza Types A & B (KEVON) - Final
Negative for Influenza A & B, NAAT
Negative results must be combined with clinical observations
and patient history.
Nucleic Acid Amplification test (NAAT)performed on the
[employer] platform.
--- NOTE | 2024-05-07 11:23 | CM ---
CM following re: discharge planning.
Discussed in rounds, reviewed pt's chart, met with pt. Pt's family at bedside.
Pt successfully extubated this morning to 6L aerosol mask with FIO2 50%, continue supportive care.
PT and OT will evaluate the pt to determine a level of care at discharge.
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
D/C plan: most likely home with family vs VN if recommended by PT.
CM will follow with discharge plan updates as hospitalization progresses
--- NOTE | 2024-05-07 11:49 | PTCARENOTE ---
Pt assessed.Extubated at [address] via left nares as ordered.Pt localized with bl upper extremities as Dobbhoff was inserted.Eyes open briefly to tactile stimuli.Does not make eye contact at this time.
--- NOTE | 2024-05-07 12:37 | PTCARENOTE ---
Pt repositioned.ROM completed.Pt stretched bl arms up past head independently.eyes open briefly.Tube feedings initiated.
[2024-05-07] MEDS: TRANDATE 10 MG IV (13:29)
--- NOTE | 2024-05-07 14:50 | W.PN.UPDATE ---
Update Note
Progress Note Update
Extubated
No stridor on exam
On low rate supplemental oxygen
Will avoid sedation
Head of the bed elevation
Mental status not back to baseline
His weight is significantly increased compared to his admission, will give 20 mg of Lasix now.
[2024-05-07] MEDS: LASIX 20 MG IV (15:01)
--- NOTE | 2024-05-07 16:00 | PTCARENOTE ---
Pt assessed.Pt opens eyes to minimal tactile stimuli and persistent verbal stimuli.Seems to make eye contact occasionally.Does not follow commands at this time.Pt does occasionally stretches and moves himself for comfort.Pt's family at bedside.
[2024-05-07] MEDS: LOVENOX 40 MG SC (18:48)
[2024-05-07] MEDS: CARDENE 200 IV (19:05)
--- NOTE | 2024-05-07 19:16 | PTCARENOTE ---
Addendum entered by Gilda Posada RN 05/07/24 19:34:
1900-BP 195/100.Not due for Labetalol at this time.LOLLY Friedman made aware.Cardene gtt initiated as ordered.
Original Note:
Pt repositioned.Eyes open.Pt asked 'What are you doing? where am I?'.
[2024-05-07] MEDS: KEPPRA 750 MG IV (19:49)
--- NOTE | 2024-05-07 20:00 | PTCARENOTE ---
rec'd patient. assessment as documented. family at bedside. pt drowsy but arouses to voice. able to nod y/n, follows simple commands. b/l soft wrist restraints in place. SR on monitor. cardene gtt infusing to maintain SBP between 120-140. on 6L NC,
frequent productive cough, suctioning provided. DHT with TF infusing. mckinnon intact. care ongoing.
[2024-05-08] VITALS (34 sets, daily range): BP systolic 120–162; BP diastolic 77–100; PULSE 84–89; O2SAT 97; BMI 37.7
[2024-05-08] MEDS: CARDENE 200 IV (02:01)
[2024-05-08] MEDS: STERILE WATER FOR INJECTION 20 ML IV (04:12)
[2024-05-08] MEDS: ROCEPHIN 2000 MG IV (04:12)
[2024-05-08 04:42] LABS: Hematocrit 33.1 % (39.0-52.0); Hemoglobin 11.6 g/dL (13.0-18.0); Mean Corpuscular Hgb 32.9 pg (27.0-31.0); Mean Corpuscular Volume 93.8 fL (80.0-94.0); Mean Platelet Volume 9.6 fL (7.4-10.4); Platelet Count 133 10^3/uL (130-400); Red Blood Cell Count 3.53 10^6/uL (4.70-6.10); Red Cell Dist. Width 13.2 % (11.5-14.5); White Blood Cell Count 6.1 10^3/uL (4.8-10.8)
[2024-05-08 05:04] LABS: Blood Urea Nitrogen 19 mg/dl (9-20); Calcium 8.1 mg/dl (8.4-10.2); Carbon Dioxide 29 mmol/L (22-30); Chloride 100 mmol/L (98-107); Estimated Creatinine Clearance > 125 ml/min; Glucose 131 mg/dl (70-99); Magnesium 2.3 mg/dl (1.6-2.3); Phosphorus 2.1 mg/dl (2.5-4.5); Potassium 3.4 mmol/L (3.5-5.1); Sodium 140 mmol/L (135-145); eGFR > 60.00
--- NOTE | 2024-05-08 05:06 | PTCARENOTE ---
AM labs sent. Pt more awake this morning, able to tell me correct name and , still thinks he is at home currently. reoriented. restraints remain in place for safety, TF infusing, cardene gtt continues. pt repositioned. call norton within reach.
care ongoing.
[2024-05-08] MEDS: KCL 50 IV (05:33)
[2024-05-08] MEDS: KEPPRA 750 MG IV (08:30)
[2024-05-08] MEDS: PROTONIX IV 40 MG IV (08:31)
[2024-05-08] MEDS: MIRALAX 17 GRAMS TUBE (08:31)
[2024-05-08] MEDS: NSS (PRESERVATIVE FREE) 10 ML IV (08:31)
[2024-05-08 08:32] LABS: West Nile Virus, IgM, Serum 0.15 IV (<=0.89)
--- NOTE | 2024-05-08 09:12 | W.PN.HOSP.TC ---
Today's Communication/Plan
-
see bold
Assessment / Plan
Assessment / Plan
HPI: 73-year-old male past medical history of left shoulder injury presenting to the emergency room for fall and altered mental status. History is obtained from patient's [id number] who is a nurse. Patient has been having productive cough with
chest congestion for the past 2 weeks. He had been self-medicating with 3 Aleve in the morning and 3 Aleve at night as well as DayQuil and NyQuil's. He also had some amoxicillin which he was taking.
This morning he was noted to be lethargic while he was walking he was leaning to 1 side and had a witnessed fall. This was witnessed by patient's brother. Medics were called. On arrival patient was awake and alert but having difficulty following
commands and was nonverbal. Patient was last seen normal yesterday evening.
#Fever
#Sepsis
#Encephalitis
#Multifactorial encephalopathy
Appreciate neurology and ID input, LP not consistent with meningitis, acyclovir/Vanco/ampicillin discontinued
HSV/VZV/CMV/HHV6/enterovirus/listeria negative by PCR on CSF
Brain MRI neg for CVA, shows nonspecific changes with mild atrophy, West Nile neg, Lyme pending
Continue Rocephin and doxycycline, fever curve improved
#Intubated for airway protection 05/05
Appreciate cnc technician input, extubated 05/07
Cleared for soft diet 05/08
#Possible pneumonia
Continue antibiotics as above
#Possible seizure activity on 05/05
EEG negative
Status post Versed drip, Keppra dose reduced to 500 mg IV every 12 hours as per neurology
#Hypokalemia
#Hypophosphatemia
Replete as needed
# Drug-induced hypotension
Resolved status post phenylephrine drip
#Hypertensive urgency
Status post Cardene drip
Labetalol IV as needed
#Obesity due to excess calories
Affects all aspects of care
#Recent dental procedure
DVT prophylaxis�subcu Lovenox
GI prophylaxis�Protonix
Full code
Dispo - PT rec acute rehab, physiatry/Dr. Griffith notified 05/08
Total time spent to see the patient on the floor, examine the patient, review data and lab results, discuss treatment plan with patient, nursing staff around 51 minutes.
Physical Exam
General: Appears acutely ill
HEENT: Normocephalic, Atraumatic, EOMI, MMM
Respiratory: Clear to Auscultation bilaterally
Cardiac: Normal S1/S2, Regular Rate and Rhythm
GI: Soft, Nontender, Nondistended, Normal Bowel Sounds
Extremities: No Clubbing, Cyanosis
Neuro: Following commands, answering some questions, cogwheel rigidity noted
Anticipated Discharge: > 48 hours
Subjective/Interval History
-
Date of Service: May 08, 2024
Patient extubated yesterday. He is alert, awake. He is following commands, and answering some questions. Fever improved.
Objective Data
-
Labs:
Laboratory Results
05/08/24
04:19
WBC 6.1
Hgb 11.6 L
Hct 33.1 L
Plt Count 133 D
Sodium 140
Potassium 3.4 L
Chloride 100
Carbon Dioxide 29
BUN 19
Creatinine 0.6 L
Glucose 131 H
Calcium 8.1 L
Vital Signs:
Vital Signs
Temp Pulse Resp BP Pulse Ox
98.6 F 88 23 123/81 94
05/08/24 07:38 05/08/24 07:00 05/08/24 07:00 05/08/24 07:00 05/08/24 07:00
I&O
05/07/24 05/08/24 05/09/24
06:59 06:59 06:59
Intake Total 3526.3 / 3626.3 2685 / 2685
Output Total 1165 / 1215 3555 / 3555
Balance 2361.3 / 2411.3 -870 / -870
[2024-05-08] MEDS: NEUTRA-PHOS POWDER PACKET 250 MG TUBE ×4 (09:55→20:06)
[2024-05-08] MEDS: VIBRAMYCIN 260 MG IV (09:55)
[2024-05-08] MEDS: POTASSIUM PHOSPHATE 259.0909 MEQ IV (10:26)
--- NOTE | 2024-05-08 10:56 | W.PN.ID1 ---
Date of Service
Date of Service: May 08, 2024
Today's Communication
- continue ceftriaxone (dose adjusted) and doxycycline - convert to oral cefdinir/doxy when feasible
Assessment / Plan
Encephalitis
- fever curve improved - fever via core route defined as over 101.0
- assessing for potentially treatable causes which patient has potential exposure to, note the differential is extensive but much would be supportive
- blood cultures x2 in progress
- HSV/VZV/CMV/HHV6/enterovirus/listeria negative by PCR on CSF with good sensitivity
- lyme serology - in progress
- influenza was negative by pcr
- west nile serology on serum negative
- west nile serology of CSF added on
- syphilis serology on serum sent pending
- c/w empiric doxycycline
Possible pneumonia
- blood cultures x2 in progress
- resp culture usual resp sienna
- agree with radiology rec to repeat imaging in a few weeks for clearance - can be done with PCP
- continue ceftriaxone (dose adjusted) and doxycycline - convert to oral when feasible
follow clinically
Chief Complaint
-: Other (encephalitis)
Subjective / Review of Systems
no further fevers
remains disoriented
no events overnight
extubated
Vital Signs / Physical Exam
Vital Signs
Vital Signs
Temp Pulse Resp BP Pulse Ox
98.6 F 81 19 133/83 96
05/08/24 07:38 05/08/24 09:38 05/08/24 09:38 05/08/24 09:38 05/08/24 09:38
Physical Exam
Constitutional: No Acute Distress and Chronically Ill
Cardiovascular: Regular Rate and S1/S2; Negative Murmur or Rub
Pulmonary: Clear and Symmetric; Negative Wheezes or Rales
Gastrointestinal: Soft, Non Tender, Non Distended and Normal Bowel Sounds
Skin: Warm and Dry; Negative Rash or Jaundice
Neurological: Awake
Objective Data
Lab Data
Lab Results
05/08/24 04:19
05/08/24 04:19
PT 14.6 Sec (11.4-14.6) 05/05/24 12:33
INR 1.16 05/05/24 12:33
APTT 33.4 Sec (23.4-35.0) 05/05/24 12:33
Estimated Creat Clear > 125 ml/min 05/08/24 04:19
Lactic Acid Cancelled 05/04/24 15:15
Total Bilirubin 0.9 mg/dl (0.2-1.3) 05/07/24 03:28
AST 48 U/L (17-59) 05/07/24 03:28
ALT 33 U/L (0-50) 05/07/24 03:28
Alkaline Phosphatase 45 U/L (38-126) 05/07/24 03:28
Most recent labs reviewed.
Micro Results:
05/05/24 01:44 Blood Culture - Preliminary
Blood/Venous No Growth in 72 hours- Final report to follow
05/04/24 21:34 Blood Culture - Preliminary
Blood/Venous No Growth in 72 hours- Final report to follow
05/05/24 17:00 CSF Culture - Preliminary
Csf No Growth After 48 Hours
Gram Stain - Preliminary
05/05/24 20:19 Respiratory Culture - Preliminary
Sputum Usual Respiratory Sienna
Gram Stain - Preliminary
05/05/24 17:00 Meningitis/Encephalitis Panel (PCR) - Final
Csf
05/04/24 00:00 Nasal Screen MRSA (PCR) - Final
Nose MRSA not detected - performed by PCR methodology.
05/04/24 21:37 Legionella Urinary Antigen - Final
Urine Negative for Legionella pneumophila Serogroup 1 antigen.
A negative result does not rule out the possiblity of
Legionella infection due to other serogroups or species of
Legionella. Clinical correlation is recommended.
Streptococcus pneumoniae Antigen (M - Final
Negative for Streptococcus pneumoniae antigen.
A negative result does not exclude infection with
Streptococcus pneumoniae. Clinical correlation is
recommended.
05/04/24 11:27 Influenza Types A & B (KEVON) - Final
Nasal Swab Negative for Influenza A & B, NAAT
Negative results must be combined with clinical observations
and patient history.
Nucleic Acid Amplification test (NAAT)performed on the
[employer] platform.
--- NOTE | 2024-05-08 11:08 | W.PN.INTV ---
Today's Communication / Plan
Recommendations
Physical therapy
Occupational Therapy
Speech therapy
Continue antibiotics
Antiseizure medications per neurology
Avoid sedative
Wean off oxygen
Assessment
-
73-year-old man with past medical history noted, admitted to the hospital with cough, congestion, fevers and change in mental status. Found to have pneumonia on CT chest. Started on antibiotics. Mental status did not improve, on 05/05/2024
developed seizure-like activity while on EEG prompting a rapid response. Intubated in the critical care unit during my supervision for airway protection.
Abrupt onset of change in mental status-unclear reason.
Possible seizure activity 05/05/2024
CT head negative-reviewed
CT neck: Negative-reviewed
Normal TSH/Normal Total Ck/Normal Amonia
Fever: Change in mental status-rule out BUGGY OPERATOR infection
Differential diagnosis includes viral meningitis/bacterial meningitis/aseptic meningitis from NSAID.
Lumbar puncture 05/05/2024: Clear appearance/colorless/white blood cells 6/RBCs 49/82% lymphocytes/glucose 82/total protein 130
Alternatively, toxic metabolic encephalopathy from pneumonia and sepsis
Acute hypoxemic respiratory failure recurrent intubation/airway protection-post possible seizure activity transferred to ICU.
Intubated 05/05/2024
Extubated 05/07/2024
Pneumonia: Left lower lobe infiltrate on CAT scan.
CT chest 05/04/2024: Reviewed
No evidence of pulmonary embolus.
Probable moderate left lower lobe pneumonia. Underlying mass not excluded. Repeat exam in 2 weeks after treatment is recommended.
Mild left lower lobe consolidation probable additional pneumonia versus atelectasis.
Mild left hilar lymphadenopathy. Probably reactive.
Condition present prior admission:
Frozen left shoulder
Usually does not visit doctors
Never smoker
No history of alcohol use
Assessment and plan:
Patient is critically ill-transferred to the critical care unit 05/05/2024 after seizure-like activity
Emergently intubated by anesthesia at the bedside under my supervision.
Clinically improved, extubated 05/07/2024.
-
Clinically improved-mental status significantly improved. Alert, cooperative. Following commands. Still slightly confused. No motor deficit
No longer febrile
Hemodynamically stable-not requiring vasopressors.
Suspicion for possible BUGGY OPERATOR infection: ? Possible meningoencephalitis.
Lumbar puncture noted: 05/05/2024-hypocellular/increased protein level at 130/normal glucose at 82/colorless.
Gram stain negative.
Meningoencephalitis PCR panel negative
West Nile viral serology pending.
Negative COVID
Negative influenza
Negative blood cultures
MRSA screen negative
So far all other diagnostic testing negative: Normal TSH, normal ammonia, normal CK, normal renal function, UA without proteinuria, normal LFTs.
Continue supportive care for now.
Patient has been taking high-dose Aleve for left shoulder pain-diagnosis of exclusion.
-
Continue antibiotics to cover for pneumonia
MRI: Nonspecific changes. Mild atrophy.
EEG-no evidence for seizures.
Neurology and infectious disease continue to follow.
-
Pneumonia on CAT scan: Continue antibiotics-defer to infectious disease
All cultures negative.
-
Continue Keppra for now-defer to neurology.
No objectively documented seizure activity. EEG has been negative. Possible seizure activity on day of transfer to the critical care unit with
-
Continue oxygen supplementation to maintain pulse ox above 90%.
Incentive spirometry
Avoid sedative
Aspiration precautions
Speech evaluation
If able to tolerate diet discontinue NG tube.
-
N.p.o. for now
Dobbhoff tube has been placed 05/07/2024.
Speech evaluation today
Physical therapy/Occupational Therapy
-
DVT prophylaxis heparin subcu
Protonix for GI prophylaxis
-
Glycemic control per protocol
-
Dr. Chau updated extensively multiple family members on 05/06/2024 and 05/07/2024, 05/08/[address] Chau personally discussed with multiple family members 05/05/2024: In general patient does not goes to doctor. He is relatively healthy.
He is a never smoker.
Reviewed differential diagnosis and plan going forward.
-
Case reviewed with neurology, infectious and primary team.
-
If continues to improve clinically and hemodynamically stable, in the afternoon we we will consider transfer to intermediate care unit. If transfer out of the ICU critical care team will sign off and pulmonary will continue to follow for pneumonia
and hypoxemia.
Discussed with family need to follow-up with the outpatient for evaluation of possible obstructive sleep apnea and radiographic follow-up.
Strongly encouraged the family to get a primary care doctor as well.
Subjective Dataa
Subjective Data
Date of Service:
Date of Service: May 08, 2024
Chief Complaint: Hearing Officer Follow Up (Toxic metabolic encephalopathy/respiratory failure) and Vent Management Follow Up
Subjective:
This morning extubated.
Patient now alert, following commands
Still slightly confused.
Denies shortness of breath or chest pain
Intermittent coughing.
Denies abdominal pain
Review of Systems
GI: Nausea (n) and Vomiting (n)
Neuro: Headache (n) and Dizziness (n)
Objective Data
Data Reviewed
Vital Signs / I&O / Oxygen:
Vital Signs
Temp Pulse Resp BP Pulse Ox
98.6 F 81 19 133/83 96
05/08/24 07:38 05/08/24 09:38 05/08/24 09:38 05/08/24 09:38 05/08/24 09:38
Intake and Output
05/07/24 05/08/24 05/09/24
06:59 06:59 06:59
Intake Total 3526.3 / 3626.3 2685 / 2775 220 / 220
Output Total 1165 / 1215 3555 / 3605 100 / 100
Balance 2361.3 / 2411.3 -870 / -830 120 / 120
SaO2 [A/C] 97
SaO2 96
Nasal Cannula flow liters per 4
minute
Physical Exam
General: Comfortable
HEENT: Normocephalic and Other (ET tube in place, scant secretions)
Cardiovascular: S1-S2
Respiratory: Clear and Non-Labored Respirations
GI: Soft and Distended (Obese)
Neurology: Awake, Alert, No Motor Deficits and Other (Still is slightly confused. Able to recognize family. Not oriented to place)
Skin: Warm
Labs/Micro/Reports
Lab Data
05/08/24 04:19
05/08/24 04:19
Microbiology
05/05/24 20:19 Sputum Respiratory Culture - Final
Usual Respiratory Jyoti
05/05/24 20:19 Sputum Gram Stain - Final
05/05/24 01:44 Blood/Venous Blood Culture - Preliminary
No Growth in 72 hours- Final report to follow
05/04/24 21:34 Blood/Venous Blood Culture - Preliminary
No Growth in 72 hours- Final report to follow
05/05/24 17:00 Csf CSF Culture - Preliminary
No Growth After 48 Hours
05/05/24 17:00 Csf Gram Stain - Preliminary
05/05/24 17:00 Csf Meningitis/Encephalitis Panel (PCR) - Final
05/04/24 00:00 Nose Nasal Screen MRSA (PCR) - Final
MRSA not detected - performed by PCR methodology.
05/04/24 21:37 Urine Legionella Urinary Antigen - Final
Negative for Legionella pneumophila Serogroup 1 antigen.
A negative result does not rule out the possiblity of
Legionella infection due to other serogroups or species of
Legionella. Clinical correlation is recommended.
05/04/24 21:37 Urine Streptococcus pneumoniae Antigen (M - Final
Negative for Streptococcus pneumoniae antigen.
A negative result does not exclude infection with
Streptococcus pneumoniae. Clinical correlation is
recommended.
--- NOTE | 2024-05-08 11:24 | W.PN.NEURO.1 ---
Today's Communication / Plan
-
.
Subjective/Objective
Subjective Data
Date of Service: May 08, 2024
Neurology follow-up note
24-hour events. afebrile, extubated.
PMH: no prior medical care
PSH: leg ORIF in childhood
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
FH: DM, CAD
All: NKDA
ROS: limited due to encephalopathy
General: restrained
Cardio: Regular rate.
Neuro:
Mental Status: awake, oriented to name, person, . Poor attention. Expressive dysphasia. Follows simple requests.
CN: Orthophoric primary gaze. Pupils 3 mm, reactive. + corneals, gag
Motor: moves all limbs within bedplane
Reflexes: no clonus
Sensory: localizes noxious stimuli
Coordination: No tremors myoclonic movements.
Gait: unable
Assessment and Plan:
1. Multifactorial encephalopathy (toxic, infectious), clinically improved
2. Meningoencephalitis
3. Pulmonary infiltrate
-seizure precautions
-Reduce Keppra to 500 mg BID
-ID follow up
-Will continue to monitor
I personally reviewed all radiology and labs along with past medical records pertinent to current medical problems. Total time spent in patient care is 36 minutes.
Thank you for allowing us to participate in the care of this patient. We will continue to follow. Please do not hesitate to contact us with any questions or concerns.
Objective Data
Vital Signs
Temp Pulse Resp BP Pulse Ox
37.0 C 81 19 133/83 96
05/08/24 07:38 05/08/24 09:38 05/08/24 09:38 05/08/24 09:38 05/08/24 09:38
Lab Results
05/08/24 04:19
05/08/24 04:19
PT 14.6 Sec (11.4-14.6) 05/05/24 12:33
INR 1.16 05/05/24 12:33
APTT 33.4 Sec (23.4-35.0) 05/05/24 12:33
Sodium 140 mmol/L (135-145) 05/08/24 04:19
Potassium 3.4 mmol/L (3.5-5.1) L 05/08/24 04:19
BUN 19 mg/dl (9-20) 05/08/24 04:19
Glucose 131 mg/dl (70-99) H 05/08/24 04:19
Calcium 8.1 mg/dl (8.4-10.2) L 05/08/24 04:19
Phosphorus 2.1 mg/dl (2.5-4.5) L 05/08/24 04:19
Ur Buprenorphine Negative (Negative) 05/04/24 11:43
Patient Allergies
No Known Allergies Allergy (Verified 11/05/13 17:57)
Vital Signs and Labs
-
Vital Signs and Labs:
Vital Signs
Temp Pulse Resp BP Pulse Ox
37.0 C 88 20 123/80 96
05/08/24 12:37 05/08/24 12:37 05/08/24 12:37 05/08/24 12:37 05/08/24 12:37
Lab Results
05/08/24 04:19
05/08/24 04:19
PT 14.6 Sec (11.4-14.6) 05/05/24 12:33
INR 1.16 05/05/24 12:33
APTT 33.4 Sec (23.4-35.0) 05/05/24 12:33
Sodium 140 mmol/L (135-145) 05/08/24 04:19
Potassium 3.4 mmol/L (3.5-5.1) L 05/08/24 04:19
BUN 19 mg/dl (9-20) 05/08/24 04:19
Glucose 131 mg/dl (70-99) H 05/08/24 04:19
Calcium 8.1 mg/dl (8.4-10.2) L 05/08/24 04:19
Phosphorus 2.1 mg/dl (2.5-4.5) L 05/08/24 04:19
Ur Buprenorphine Negative (Negative) 05/04/24 11:43
Medications
-
Medications:
Generic Name Dose Route Start Last Admin
Trade Name Freq PRN Reason Stop Dose Admin
Acetaminophen 650 mg 05/04/24 19:03 05/04/24 22:45
Acetaminophen 650 Mg Rectal Suppository RECTAL 06/01/24 19:02 650 mg
Q4HPRN PRN Administration
mild pain/SAUCEDO/temp> 100.4F
Ceftriaxone Sodium 2,000 mg 05/07/24 06:00 05/08/24 04:12
Ceftriaxone 2,000 Mg/20 Ml Vial IV 2,000 mg
Q24H FIDENCIO Administration
Enoxaparin Sodium 40 mg 05/05/24 18:00 05/07/24 18:48
Enoxaparin Sodium 40 Mg/0.4 Ml Syringe SC 06/02/24 17:59 40 mg
QPM FIDENCIO Administration
Doxycycline Hyclate 100 mg/ 260 mls @ 260 mls/hr 05/05/24 18:00 05/08/24 09:55
Sodium Chloride IV 260 mls
Q12H FIDENCIO Administration
Nicardipine/Sodium Chloride 40 mg in 200 mls @ 0 mls/hr 05/07/24 19:00 05/08/24 02:01
Cardene IV 200 mls
PER PROTOCOL FIDENCIO Administration
Protocol
Per Protocol
Potassium Phosphate 40 meq/ 259.0909 mls @ 64.773 mls/hr 05/08/24 09:12 05/08/24 10:26
Sodium Chloride IV 05/08/24 13:11 259.0909 mls
NOW STA Administration
Labetalol HCl 10 mg 05/06/24 16:16 05/07/24 13:29
Labetalol Hcl 5 Mg/1 Ml (20 Mg/4 Ml) Injection IV 06/03/24 16:15 10 mg
Q6HPRN PRN Administration
Systolic blood pressure>160
Levetiracetam 750 mg 05/07/24 20:00 05/08/24 08:30
Levetiracetam (100 Mg/Ml) 500 Mg/5 Ml Vial IV 06/02/24 19:59 750 mg
Q12 FIDENCIO Administration
Midazolam HCl 2 mg 05/05/24 16:00 05/05/24 15:55
Midazolam (Preservative Free) 1 Mg/Ml 2 Ml Vial IV 06/02/24 15:59 2 mg
[id number] PRN Administration
SEIZURE
Polyethylene Glycol 17 grams 05/06/24 08:00 05/08/24 08:31
Polyethylene Glycol Powder 17 Grams Packet TUBE 06/03/24 07:59 17 grams
DAILY FIDENCIO Administration
Potassium Phosphate 250 mg 05/08/24 09:15 05/08/24 09:55
Neutra-Phos Powder Concentrate (250 Mg) Packet TUBE 06/05/24 09:14 250 mg
PCHS FIDENCIO Administration
Sodium Chloride 0 flush 05/04/24 20:00
Sodium Chloride 0.9% (Flush) Syringe IV 06/01/24 19:59
PER PROTOCOL FIDENCIO
Sterile Water 20 ml 05/07/24 06:00 05/08/24 04:12
Sterile Water For Injection 20 Ml Vial IV 06/04/24 05:59 20 ml
Q24H FIDENCIO Administration
Home Medications
-
Home Medications
amoxicillin 500 mg capsule 1,000 mg PO TID Infection 05/04/24
naproxen sodium 220 mg tablet (Aleve) 660 mg PO BIDPRN PRN shoulder pains 05/04/24
--- NOTE | 2024-05-08 11:59 | CM ---
CM following re: discharge planning.
Discussed in Rounds, reviewed pt's chart, met with pt and spoke to pt's family: son, daughter, sister in law, granddaughter.
PT and OT evaluations noted - acute level of rehab recommended.
CM discussed it with the pt and his family and they expressed their satisfactions with acute level of rehab recommendations. CM explained to pt's family admitting criteria for acute level of rehab and they expressed their understanding. Pt's family
requested [facility] as number one priority. CM discussed an alternative plan in case pt will not be approved for acute rehab and pt's family requested [facility] as a back up plan.
A referral to both [facility] and [facility] made. Awaiting for determinations.
PM&R consult requested.
D/C plan: Plan A: [facility]. Alternate plan B: [facility] if acute rehab is not approved.
CM will follow with discharge plan updates as hospitalization progresses
--- NOTE | 2024-05-08 13:16 | PTOTSP ---
ST Acute Care Evaluation
Pt currently presents with clinical signs of mild oropharyngeal dysphagia characterized by prolonged mastication, reduced bolus formation, impulsivity/reduced insight to deficits, and occasional cough with ingestion of liquids.
Recommendations:
- Initiate PO diet of soft bite sized solids with thin liquids and meds as tolerated.
- Aspiration precautions: full supervision for PO intake; fully upright for PO intake; small bites/sips; slow intake rate.
- ASBESTOS COVERER to f/u re: pt's diet tolerance and airway protection for these recommended diet consistencies as well as to determine if pt would benefit from an instrumental swallow study.
--- NOTE | 2024-05-08 15:17 | PTCARENOTE ---
Patient assessment continues to improve thru day. Patient in and out of bed to chair, to bed. lunch as ordered and follow nutrition and speech recommendations. 75% taken. Continue with Follow up pharmacy and hospitalist team at bedside with family.
PT/OT working with patient thru morning. Family updated several times this shift. Continue with teaching and supportive cares.
--- NOTE | 2024-05-08 16:02 | CON.MD ---
Documented by User: Tari Galvez PA-C 05/09/24 17:06
Consultation - Medical
-
Referring Provider:�Dr. Carranza
Chief Complaint:�Debility
�
History of Present Illness:�73-year-old male with PMH of (recent left shoulder injury taking high dose nsaids) presented to the emergency room via EMS on 05/04 for fall and altered mental status with a history of productive cough and chest
congestion of 2 weeks. He was noted to be lethargic and walking with a lean witnessed by his brother. On arrival patient was awake and alert but having difficulty following commands and was nonverbal. Patient was last seen normal yesterday evening.
Found to have pneumonia on CT chest and started on antibiotics. Mental status did not improve. Flu and Covid were negative
Neurology consulted. Lumbar puncture was ordered and empiric vanc/ceftriaxone/ampicillin/doxycycline was started. Differentials are Encephalitis vs Bacterial Meningitis vs Aseptic meningitis. LP not consistent with meningitis and
acyclovir/Vanco/ampicillin were discontinued. on 05/05, he was intubated for airway protection due to seizure like activity. Keppra was started and he was transferred to ICU. on 05/07, he was extubated.
EEG on 05/06- with no seizures activities. On Keppra for seizure precautions
CXR (05/05) no active cardiopulmonary disease.
CT head-No acute intracranial abnormality.
CTA head/neck-no evidence of M1 or M2 occlusion.
Brain MRI neg for CVA, shows nonspecific changes with mild atrophy.
Infectious disease was consulted and assessing for potentially treatable causes.
1.HSV/VZV/CMV/HHV6/enterovirus/listeria negative by PCR on CSF
2.Lyme serology - in progress
3. influenza- negative by PCR
4.West Nile serology on serum negative
5.West Nile serology of CSF added on
6. syphilis serology on serum sent pending
7. Continue empiric doxycycline and Rocephin- fever curved improved
8.blood cultures x2 in progress
9.respiratory culture usual respiratory sienna.
No more fevers. Still remains disoriented
repeat imaging in a few weeks for clearance - can be done with PCP
He was wean off oxygen and off feeding tube. Currently on Soft bite size diet. Says feeling better than before and is more alert and oriented today. He is tachypneic and has elevated blood pressure.
Past Medical History:�none
Procedure History:�leg ORIF in childhood
Family History:�CAD
�
Social History:�
Functional Level Premorbidly:�Independent with all activities�
Functional Level Currently:�Bed mobility�mod assist, eating�dependent, grooming�min assist, toileting�dependent
�
Tobacco:�Denies�
Alcohol:�Denies�
Drug use:�Denies�
�
Lives with:�Brother (disabled per his daughter)
24-hour assistance available:�
Number of floors:�2
# steps to enter:�4-5
# steps to second floor : 13 steps
Potential First floor set up:�
Driving:�yes
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
�
�
Allergies:�
Allergy/AdvReac Type Severity Reaction Status Date / Time
No Known Allergies Allergy Verified 11/05/13 17:57
�
Review of Systems:�
Constitutional: (x) Normal _
Eye: (x) Normal _
Ear/Nose/Throat: (x) Normal _
Respiratory: (x) pneumonia, tachypnea
Cardiovascular: (x) elevated blood pressure
Gastrointestinal: (x) feeding tube
Genitourinary: (x) indwelling cath
Musculoskeletal: (x) Normal _
Integumentary: (x) Normal _
Neurologic: (x) impaired
Psychiatric: (x) impairment
Endocrine: (x) Normal _
Hematologic/Lymphatic: (x) Normal _
Allergic/Immunologic: (x) Normal _
�
Medications:�
Active Current Visit Medication List
Category Date Time Status
Acetaminophen [Tylenol/Feverall] Med 05/04/24 19:03 Active
650 mg RECTAL Q4HPRN PRN
CefTRIAXone [Rocephin] Med 05/07/24 06:00 Active
2,000 mg IV Q24H
Doxycycline [Vibramycin] Med 05/08/24 20:00 Active
100 mg PO BID
Enoxaparin Sodium [Lovenox] Med 05/05/24 18:00 Active
40 mg SC QPM
Flush (0.9% Sodium Chloride) [Flush (Nss)] Med 05/04/24 20:00 Active
See Dose Instructions IV PER PROTOCOL
Labetalol HCl [Trandate] Med 05/06/24 16:16 Active
10 mg IV Q6HPRN PRN
Levetiracetam [Keppra] Med 05/08/24 20:00 Active
500 mg PO BID
Midazolam HCl [Versed] Med 05/05/24 16:00 Active
2 mg IV [id number] PRN
Polyethylene Glycol Powder [Miralax] Med 05/06/24 08:00 Active
17 grams TUBE DAILY
Sodium/Potassium Phosphate Mix [Neutra-Phos Powder Med 05/08/24 09:15 Active
Packet]
250 mg TUBE PCHS
Sterile Water [Sterile Water For Injection] Med 05/07/24 06:00 Active
20 ml IV Q24H
�
Vitals:�
Temp Pulse Resp BP Pulse Ox
97.9 F 85 26 159/86 92
05/09/24 07:00 05/09/24 06:10 05/09/24 06:10 05/09/24 06:10 05/09/24 04:00
Height 5 ft 9 in
Actual Weight 113.1 kg
Body Mass Index (BMI) 36.8
�
Physical Exam:�
General Appearance/Observation: Well-developed, well-nourished individual in no apparent distress.�
Pain/Comfort Assessment: LBP,
Mood/Affect: Appropriate, somewhat impaired�
�
Integumentary/Operative Site:�
�� Pressure Ulcer Evaluation: absent over heels.�
��
�� Other Type of Wound: skin tear - left elbow
Eyes: Conjunctiva/Lids: normal���� Pupils: pupils equal round and reactive to light and Accommodation�
Ears/Nose/Throat: oral mucosa moist,� throat clear.������������ Lips/Teeth/Gums: normal�
Neck: No muscle spasm or tenderness�
Cardiovascular: Heart: regular, no murmur�
Pulses: dorsalis pedis 2+ bilaterally�
Respiratory: Respiratory Effort/Chest Expansion: normal������� Auscultation: Clear to auscultation bilaterally�
Gastrointestinal: abdomen not tender, no distension, normal abdominal bowel sounds
Genitourinary: No Victoria�
Extremities:�Edema: trace bilaterally�Cyanosis: None�Trophic�changes: None
�
Neurology Exam:
Orientation: Alert, Oriented to self, time, Place�, knew President, name of [employer] football team, baseball, but could not remember his grandchildren
Memory: Impaired
Repetition: Impaired
Comprehension: slow processing, needing cues, repetition, some expressive aphasia- could not find certain words to answer certain questions.
Two step command: Impaired, slow processing
Naming: Intact
Cranial Nerves:
�� CNII:�Pupillary light reflex: Intact����Visual Field: Intact
�� CN III, IV, : Extraocular muscles: Intact�
�� CN V:�Facial Sensation�at�Forehead: Intact,�Maxilla: Intact,�Mandible: Intact
�� CN VII:�Facial movement: Symmetric
�� CN VIII:�Hearing: Normal
�� CN IX/X:�Speech & swallow: Normal,�Position of Uvula: Midline
�� CN XI:�Shoulder shrug: Symmetric
�� CN XII:�Tongue protrusion: Midline-food coating on tongue
Sensory:
�� Light touch: Intact in bilateral upper and lower extremities, except mild hypoesthesia in medial aspect of left leg and lateral thigh with light touch.
�
�
Reflexes:
�� Biceps: absent bilaterally
�� Brachioradialis: absent bilaterally
�� Triceps:absent bilaterally
�� Patellar: absent bilaterally
�� Achilles: absent bilaterally
�� Babinski: Down going bilaterally
�� Kristian: Negative bilaterally�
Cerebellar: Dysmetria/Ataxia: impaired with right and left nose finger coordination.
Musculoskeletal:
Motor: (Manual muscle scale 0-5)�
Muscle SA EF WE EE FF FA HF KE DF EHL PF
Right� 5 5 5 5 5 5 5 5 5 5 5
Left 5 5 5 5 5 5 2 2 5 5 5
Unable to lift left leg much off the recliner. Says not able and has some pain. good strength in all other muscle groups�
Tone: Normal in all extremities�
Range of Motion: Passively within normal limits in all extremities�
�
Lab Results:
Labs
WBC 7.0 10^3/uL (4.8-10.8) 05/09/24 08:50
RBC 3.76 10^6/uL (4.70-6.10) L 05/09/24 08:50
Hgb 12.5 g/dL (13.0-18.0) L 05/09/24 08:50
Hct 35.5 % (39.0-52.0) L 05/09/24 08:50
MCV 94.4 fL (80.0-94.0) H 05/09/24 08:50
MCH 33.2 pg (27.0-31.0) H 05/09/24 08:50
MCHC 35.2 g/dL (33.0-37.0) 05/09/24 08:50
RDW 13.2 % (11.5-14.5) 05/09/24 08:50
Plt Count 162 10^3/uL (130-400) D 05/09/24 08:50
MPV 10.1 fL (7.4-10.4) 05/09/24 08:50
Abs Immat Gran (auto) 0.1 10^3/uL (0-0.05) H 05/05/24 05:19
Absolute Neuts (auto) 4.7 10^3/uL (1.4-6.5) 05/05/24 05:19
Absolute Lymphs (auto) 0.9 10^3/uL (1.2-3.4) L 05/05/24 05:19
Absolute Monos (auto) 0.7 10^3/uL (0.1-0.6) H 05/05/24 05:19
Absolute Eos (auto) 0.0 10^3/uL (0-0.7) 05/05/24 05:19
Absolute Basos (auto) 0.0 10^3/uL (0-0.2) 05/05/24 05:19
Immature Gran % 0.8 % (0-0.5) H 05/05/24 05:19
Neutrophils % 73.9 % (42.2-75.2) 05/05/24 05:19
Lymphocytes % 14.1 % (20.5-51.1) L 05/05/24 05:19
Monocytes % 10.5 % (1.7-9.3) H 05/05/24 05:19
Eosinophils % 0.2 % (0-6) 05/05/24 05:19
Basophils % 0.5 % (0-2) 05/05/24 05:19
Nucleated RBC % 0 % (-) 05/05/24 05:19
PT 14.6 Sec (11.4-14.6) 05/05/24 12:33
INR 1.16 05/05/24 12:33
APTT 33.4 Sec (23.4-35.0) 05/05/24 12:33
pH Cancelled 05/07/24 15:08
pCO2 Cancelled 05/07/24 15:08
pO2 Cancelled 05/07/24 15:08
HCO3 Cancelled 05/07/24 15:08
Base Excess Cancelled 05/07/24 15:08
ABG O2 Sat (Measured) Cancelled 05/07/24 15:08
VBG pH 7.42 (7.32-7.43) 05/04/24 11:30
VBG pCO2 40 mmHg (35-48) 05/04/24 11:30
VBG pO2 124 mmHg (30-50) H 05/04/24 11:30
VBG HCO3 25.9 mmol/L (22-27) 05/04/24 11:30
VBG O2 Sat ([place]ara) 99.3 % 05/04/24 11:30
VBG Base Excess 1.3 mmol/L (-4 to +4) 05/04/24 11:30
VBG O2 Therapy 21 05/04/24 11:30
O2 Delivery Level Cancelled 05/07/24 15:08
Sodium 140 mmol/L (135-145) 05/09/24 08:50
Potassium 3.7 mmol/L (3.5-5.1) 05/09/24 08:50
Chloride 98 mmol/L (98-107) 05/09/24 08:50
Carbon Dioxide 31 mmol/L (22-30) H 05/09/24 08:50
BUN 16 mg/dl (9-20) 05/09/24 08:50
Creatinine 0.6 mg/dL (0.7-1.3) L 05/09/24 08:50
Estimated Creat Clear > 125 ml/min 05/09/24 08:50
eGFR > 60.00 05/09/24 08:50
Glucose 161 mg/dl (70-99) H 05/09/24 08:50
Lactic Acid Cancelled 05/04/24 15:15
Calcium 8.5 mg/dl (8.4-10.2) 05/09/24 08:50
Phosphorus 2.9 mg/dl (2.5-4.5) 05/09/24 08:50
Magnesium 2.3 mg/dl (1.6-2.3) 05/08/24 04:19
Total Bilirubin 0.9 mg/dl (0.2-1.3) 05/07/24 03:28
AST 48 U/L (17-59) 05/07/24 03:28
ALT 33 U/L (0-50) 05/07/24 03:28
Alkaline Phosphatase 45 U/L (38-126) 05/07/24 03:28
Ammonia 24 umol/L (9-30) 05/05/24 11:40
Creatine Kinase 178 U/L (55-170) H 05/05/24 20:18
Troponin I < 0.012 ng/ml 05/04/24 11:27
Total Protein 5.6 g/dl (6.3-8.2) L 05/07/24 03:28
Albumin 3.1 g/dl (3.5-5.0) L 05/07/24 03:28
Triglycerides Cancelled 05/05/24 20:19
TSH (Reflex) 2.53 uIU/ml (0.47-4.68) 05/05/24 11:40
Urine Color Yellow 05/04/24 11:43
Urine Clarity Clear (Clear) 05/04/24 11:43
Urine pH 6.0 (5.0-9.0) 05/04/24 11:43
Ur Specific [place] 1.025 (<1.030) 05/04/24 11:43
Urine Ketones 1+ (Negative) A 05/04/24 11:43
Ur Occult Blood Reflex Negative (Negative) 05/04/24 11:43
Urine Nitrite (Reflex) Negative (Negative) 05/04/24 11:43
Urine Bilirubin 1+ (Negative) A 05/04/24 11:43
Urine Urobilinogen Negative (Neg - 1+) 05/04/24 11:43
Leukocyte Esterase Rfl Negative (Negative) 05/04/24 11:43
Urine Glucose Negative (Negative) 05/04/24 11:43
Urine Albumin (Reflex) Trace (Neg - Trace) 05/04/24 11:43
CSF Appearance Clear 05/05/24 17:00
CSF Color Colorless 05/05/24 17:00
CSF WBC 6 mm^3 (0-5) H* 05/05/24 17:00
CSF RBC 49 mm^3 05/05/24 17:00
CSF Cell Count Tube # 4 05/05/24 17:00
CSF Granulocytes 1 % 05/05/24 17:00
CSF Lymphocytes 82 % 05/05/24 17:00
CSF Macrophages 17 % 05/05/24 17:00
CSF Glucose 82 mg/dl (40-70) H 05/05/24 17:00
CSF Total Protein 130 mg/dl (12-60) H 05/05/24 17:00
Urine Opiates Screen Negative (Negative) 05/04/24 11:43
Ur Buprenorphine Negative (Negative) 05/04/24 11:43
Ur Oxycodone Screen Negative (Negative) 05/04/24 11:43
Urine Methadone Screen Negative (Negative) 05/04/24 11:43
Ur Barbiturates Screen Negative (Negative) 05/04/24 11:43
Ur Tricyclics Screen Negative (Negative) 05/04/24 11:43
Ur Phencyclidine Scrn Negative (Negative) 05/04/24 11:43
Ur Amphetamines Screen Negative (Negative) 05/04/24 11:43
U Methamphetamines Scrn Negative (Negative) 05/04/24 11:43
U Benzodiazepines Scrn Negative (Negative) 05/04/24 11:43
Urine Cocaine Screen Negative (Negative) 05/04/24 11:43
U Marijuana (THC) Screen Negative (Negative) 05/04/24 11:43
Alcohol, Quantitative None detected mg/dl 05/04/24 11:27
Syphilis Serology Negative (Negative) 05/06/24 04:10
Lyme Screen IgG & IgM Negative (Negative) 05/05/24 05:19
West Nile Virus IgM Ab 0.15 IV (<=0.89) 05/05/24 05:19
SARS-CoV-2 Antigen Negative (Negative) 05/04/24 11:27
POC Glucose 149 mg/dl (70-99) H 05/05/24 15:04
�
Diagnostic Results:�as per HPI�
Routine EEG(05/06/2024)�diffuse cortical dysfunction without focal abnormality. No seizures were recorded.In comparison with the prior study, this study was worse as there was reduced cortical activity.
Brain MRI [place]�mild signal alteration of the bilateral cerebral cortices with hyperintense FLAIR and DWI signal.
CXR(05/05/2024) no active cardiopulmonary disease.
CT head-No acute intracranial abnormality.
CTA head/neck-no evidence of M1 or M2 occlusion. There is no carotid dissection. There is no focal stenosis. Possible moderate left lower lobe pneumonia
C spine CT- severe disc space narrowing at C5/6 and C6/7. There is moderate narrowing at C7/T1.
�
Assessment: 73-year-old male with PMH of left shoulder injury presented to ED with cough, lethargy and mental status change. Found to have pneumonia on CT scan. Started on antibiotics. Had seizure like activity and started on Keppra for seizure
precautions. Had extensive work-up for cause of encephalopathy.Slowly improving on antibiotics, but still with cognitive impairments.
�
Plan�
PM&R�PT/OT to increase independence with ADLs, improve balance, coordination, endurance, strength, mobility, community reintegration, decreased burden of care on others and family education.�
Debility: Cont OT/PT
�
Multifactorial encephalopathy (toxic, infectious), clinically improved
- assessing for potentially treatable causes which patient has potential exposure to
- blood cultures x2 in progress
- HSV/VZV/CMV/HHV6/enterovirus/listeria negative by PCR on CSF with good sensitivity
- lyme serology - negative
- influenza was negative by pcr
- west nile serology on serum negative
- west nile serology of CSF added on-in process
- syphilis serology on serum-negative
- c/w empiric doxycycline
Pulmonary infiltrate/Possible pneumonia
- blood cultures x2 in progress-preliminary no growth after 4 days.
- respiratory culture usual sienna
- agree with radiology rec to repeat imaging in a few weeks for clearance - can be done with PCP
- continue ceftriaxone (dose adjusted) and doxycycline - convert to oral when feasible
seizure precautions
-Reduce Keppra to 500 mg BID
EEG on 05/06- with no seizures activities.
Dysphagia: speech evaluation, off feeding tube, aspiration precautions.�On soft and bite sized diet.
Expressive Aphasia: speech evaluation. havign some trouble finding words to express thought and when answering some questions.�
Elevated BP/HTN: Lisinopril 20 mg daily. Labetalol 10mg IV q 6 hours prn. monitor closely�
Psych: Psychology consult.� Monitor mood, adjust medications as needed.�
Skin: monitor for pressure sores/rashes/lesions.�
Pain: acetaminophen as needed.�
Bowel: Miralax po,
Bladder: Time void, PVRs, PRN straight cath.�
GI Prophylaxis: Pantoprazole�
DVT Prophylaxis: Mechanical and Lovenox 40 sc qd
Pulmonary: Incentive spirometry�
Morbid obesity: Continue to vocational counselor patient about diet adjustments to control obesity. Body habitus and increased force to move body and extremities causes further difficulty with functional tasks.�
Safety: Continue to reinforce assistance with all transfers.�
Code Status:� Full code
Dispo�(date/plan/equipment needs): Home with family care.� Social history reviewed.�
�
Functional and Medical Goals:�Modified Independent with ADL�s, ambulation, transfers�
�
Discharge Destination:�Acute inpatient rehabilitation once medically and cognitively stable
�
Summary of recommendations: Patient with cognitive impairment, debility, and tachypnea secondary to encephalopathy showing some improvement clinically and cognitively. He may benefit from acute inpatient rehabilitation for PT/OT/speech to increase
independence with ADLs, improve balance, coordination, endurance, strength, and family education once he is medically stable,all pending labs resolved, improved blood pressure control off IV medications and improved respiratory rate at rest without
need for supplemental oxygenation in order to tolerate acute rehabilitation.
Debility: Cont OT/PT
Multifactorial encephalopathy (toxic, infectious), clinically improving
-- blood cultures x2 in progress- preliminary -no growth 4 days- awaiting final report
- HSV/VZV/CMV/HHV6/enterovirus/listeria negative by PCR on CSF with good sensitivity
- lyme serology - negative
- influenza was negative by pcr
- west nile serology on serum negative
- west nile serology of CSF added on-in process
- syphilis serology on serum-negative
- c/w empiric doxycycline- Afebrile
Dysphagia: speech evaluation, off feeding tube, aspiration precautions.�On soft and bite sized diet.
Expressive Aphasia: speech evaluation. having some trouble finding words to express thoughts and to answer some questions.�
Elevated BP/HTN: Lisinopril 20 mg daily. Labetalol 10mg IV q 6 hours prn. monitor closely�
Skin: monitor for pressure sores/rashes/lesions.�
Pain: acetaminophen as needed.�
LLE weakness: unclear etiology-Could check imaging of lumbar spine for potential cause
Bowel: Miralax po,
Bladder: Time void, PVRs, PRN straight cath.�
-GI Prophylaxis: recommend Pantoprazole�0mg qd
DVT Prophylaxis: Mechanical and Lovenox 40 sc qd
Pulmonary: Incentive spirometry�
Morbid obesity: Continue to vocational counselor patient about diet adjustments to control obesity. Body habitus and increased force to move body and extremities causes further difficulty with functional tasks.�
Safety: Continue to reinforce assistance with all transfers.�
Code Status:� Full code
Thank you for allowing me to care for your patient. Please contact me with any questions or concerns.

Documented by User: Alfred Luis MD 05/09/24 18:48
Consultation - Medical
-
Referring Provider:�Dr. Carranza
Chief Complaint:�Debility
�
History of Present Illness:�73-year-old male with PMH of (recent left shoulder injury taking high dose nsaids) presented to the emergency room via EMS on 05/04 for fall and altered mental status with a history of productive cough and chest
congestion of 2 weeks. He was noted to be lethargic and walking with a lean witnessed by his brother. On arrival patient was awake and alert but having difficulty following commands and was nonverbal. Patient was last seen normal yesterday evening.
Found to have pneumonia on CT chest and started on antibiotics. Mental status did not improve. Flu and Covid were negative
Neurology consulted. Lumbar puncture was ordered and empiric vanc/ceftriaxone/ampicillin/doxycycline was started. Differentials are Encephalitis vs Bacterial Meningitis vs Aseptic meningitis. LP not consistent with meningitis and
acyclovir/Vanco/ampicillin were discontinued. on 05/05, he was intubated for airway protection due to seizure like activity. Keppra was started and he was transferred to ICU. on 05/07, he was extubated.
EEG on 05/06- with no seizures activities. On Keppra for seizure precautions
CXR (05/05) no active cardiopulmonary disease.
CT head-No acute intracranial abnormality.
CTA head/neck-no evidence of M1 or M2 occlusion.
Brain MRI neg for CVA, shows nonspecific changes with mild atrophy.
Infectious disease was consulted and assessing for potentially treatable causes.
1.HSV/VZV/CMV/HHV6/enterovirus/listeria negative by PCR on CSF
2.Lyme serology - in progress
3. influenza- negative by PCR
4.West Nile serology on serum negative
5.West Nile serology of CSF added on
6. syphilis serology on serum sent pending
7. Continue empiric doxycycline and Rocephin- fever curved improved
8.blood cultures x2 in progress
9.respiratory culture usual respiratory [place]ienna.
No more fevers. Still remains disoriented
repeat imaging in a few weeks for clearance - can be done with PCP
He was wean off oxygen and off feeding tube. Currently on Soft bite size diet. Says feeling better than before and is more alert and oriented today. He is tachypneic and has elevated blood pressure.
Past Medical History:�none
Procedure History:�leg ORIF in childhood
Family History:�CAD
�
Social History:�
Functional Level Premorbidly:�Independent with all activities�
Functional Level Currently:�Bed mobility�mod assist, eating�dependent, grooming�min assist, toileting�dependent
�
Tobacco:�Denies�
Alcohol:�Denies�
Drug use:�Denies�
�
Lives with:�Brother (disabled per his daughter)
24-hour assistance available:�Yes
Number of floors:�2
# steps to enter:�4-5
# steps to second floor : 13 steps
Potential First floor set up:�Yes
Driving:�yes
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
�
�
Allergies:�
Allergy/AdvReac Type Severity Reaction Status Date / Time
No Known Allergies Allergy Verified 11/05/13 17:57
�
Review of Systems:�
Constitutional: (x) abNormal _ fatigue
Eye: (x) Normal _
Ear/Nose/Throat: (x) Normal _
Respiratory: (x) pneumonia, tachypnea
Cardiovascular: (x) elevated blood pressure
Gastrointestinal: (x) feeding tube
Genitourinary: (x) indwelling cath
Musculoskeletal: (x) Normal _
Integumentary: (x) Normal _
Neurologic: (x) impaired
Psychiatric: (x) impairment
Endocrine: (x) Normal _
Hematologic/Lymphatic: (x) Normal _
Allergic/Immunologic: (x) Normal _
�
Medications:�
Active Current Visit Medication List
Category Date Time Status
Acetaminophen [Tylenol/Feverall] Med 05/04/24 19:03 Active
650 mg RECTAL Q4HPRN PRN
CefTRIAXone [Rocephin] Med 05/07/24 06:00 Active
2,000 mg IV Q24H
Doxycycline [Vibramycin] Med 05/08/24 20:00 Active
100 mg PO BID
Enoxaparin Sodium [Lovenox] Med 05/05/24 18:00 Active
40 mg SC QPM
Flush (0.9% Sodium Chloride) [Flush (Nss)] Med 05/04/24 20:00 Active
See Dose Instructions IV PER PROTOCOL
Labetalol HCl [Trandate] Med 05/06/24 16:16 Active
10 mg IV Q6HPRN PRN
Levetiracetam [Keppra] Med 05/08/24 20:00 Active
500 mg PO BID
Midazolam HCl [Versed] Med 05/05/24 16:00 Active
2 mg IV [id number] PRN
Polyethylene Glycol Powder [Miralax] Med 05/06/24 08:00 Active
17 grams TUBE DAILY
Sodium/Potassium Phosphate Mix [Neutra-Phos Powder Med 05/08/24 09:15 Active
Packet]
250 mg TUBE PCHS
Sterile Water [Sterile Water For Injection] Med 05/07/24 06:00 Active
20 ml IV Q24H
�
Vitals:�
Temp Pulse Resp BP Pulse Ox
97.9 F 85 26 159/86 92
05/09/24 07:00 05/09/24 06:10 05/09/24 06:10 05/09/24 06:10 05/09/24 04:00
Height 5 ft 9 in
Actual Weight 113.1 kg
Body Mass Index (BMI) 36.8
�
Physical Exam:�
General Appearance/Observation: Well-developed, well-nourished individual in no apparent distress.�
Pain/Comfort Assessment: Low back pain
Mood/Affect: Appropriate, somewhat impaired�
�
Integumentary/Operative Site:�skin tear - left elbow
�� Pressure Ulcer Evaluation: absent over heels.�
Eyes: Conjunctiva/Lids: normal���� Pupils: pupils equal round and reactive to light and Accommodation�
Ears/Nose/Throat: oral mucosa moist,� throat clear.������������ Lips/Teeth/Gums: normal�
Neck: No muscle spasm or tenderness�
Cardiovascular: Heart: regular, no murmur�
Pulses: dorsalis pedis 2+ bilaterally�
Respiratory: Respiratory Effort/Chest Expansion: normal������� Auscultation: Clear to auscultation bilaterally�
Gastrointestinal: abdomen not tender, no distension, normal abdominal bowel sounds
Genitourinary: No Victoria�
Extremities:�Edema: trace bilaterally�Cyanosis: None�Trophic�changes: None
�
Neurology Exam:
Orientation: Alert, Oriented to self, time, Place�, knew President, name of [employer] football team, baseball, but could not remember his grandchildren
Memory: Impaired
Repetition: Impaired
Comprehension: slow processing, needing cues, repetition, some expressive aphasia- could not find certain words to answer certain questions.
Two step command: Impaired, slow processing
Naming: Intact
Cranial Nerves:
�� CNII:�Pupillary light reflex: Intact����Visual Field: Intact
�� CN III, IV, : Extraocular muscles: Intact�
�� CN V:�Facial Sensation�at�Forehead: Intact,�Maxilla: Intact,�Mandible: Intact
�� CN VII:�Facial movement: Symmetric
�� CN VIII:�Hearing: Normal
�� CN IX/X:�Speech & swallow: Normal,�Position of Uvula: Midline
�� CN XI:�Shoulder shrug: Symmetric
�� CN XII:�Tongue protrusion: Midline-food coating on tongue
Sensory:
�� Light touch: Intact in bilateral upper and lower extremities, except mild hypoesthesia in medial aspect of left leg and lateral thigh with light touch.
�
�
Reflexes:
�� Biceps: absent bilaterally
�� Brachioradialis: absent bilaterally
�� Triceps:absent bilaterally
�� Patellar: absent bilaterally
�� Achilles: absent bilaterally
�� Babinski: Down going bilaterally
�� Kristian: Negative bilaterally�
Cerebellar: Dysmetria/Ataxia: impaired with right and left nose finger coordination.
Musculoskeletal: Motor: (Manual muscle scale 0-5)�
Muscle SA EF WE EE FF FA HF KE DF EHL PF
Right� 5 5 5 5 5 5 3 5 5 5 5
Left 5 5 5 5 5 5 2 2 5 5 5
Unable to lift left leg much off the recliner. Says not able and has some pain. good strength in all other muscle groups�
Tone: Normal in all extremities�
Range of Motion: Passively within normal limits in all extremities�
�
Lab Results:
Labs
WBC 7.0 10^3/uL (4.8-10.8) 05/09/24 08:50
RBC 3.76 10^6/uL (4.70-6.10) L 05/09/24 08:50
Hgb 12.5 g/dL (13.0-18.0) L 05/09/24 08:50
Hct 35.5 % (39.0-52.0) L 05/09/24 08:50
MCV 94.4 fL (80.0-94.0) H 05/09/24 08:50
MCH 33.2 pg (27.0-31.0) H 05/09/24 08:50
MCHC 35.2 g/dL (33.0-37.0) 05/09/24 08:50
RDW 13.2 % (11.5-14.5) 05/09/24 08:50
Plt Count 162 10^3/uL (130-400) D 05/09/24 08:50
MPV 10.1 fL (7.4-10.4) 05/09/24 08:50
Abs Immat Gran (auto) 0.1 10^3/uL (0-0.05) H 05/05/24 05:19
Absolute Neuts (auto) 4.7 10^3/uL (1.4-6.5) 05/05/24 05:19
Absolute Lymphs (auto) 0.9 10^3/uL (1.2-3.4) L 05/05/24 05:19
Absolute Monos (auto) 0.7 10^3/uL (0.1-0.6) H 05/05/24 05:19
Absolute Eos (auto) 0.0 10^3/uL (0-0.7) 05/05/24 05:19
Absolute Basos (auto) 0.0 10^3/uL (0-0.2) 05/05/24 05:19
Immature Gran % 0.8 % (0-0.5) H 05/05/24 05:19
Neutrophils % 73.9 % (42.2-75.2) 05/05/24 05:19
Lymphocytes % 14.1 % (20.5-51.1) L 05/05/24 05:19
Monocytes % 10.5 % (1.7-9.3) H 05/05/24 05:19
Eosinophils % 0.2 % (0-6) 05/05/24 05:19
Basophils % 0.5 % (0-2) 05/05/24 05:19
Nucleated RBC % 0 % (-) 05/05/24 05:19
PT 14.6 Sec (11.4-14.6) 05/05/24 12:33
INR 1.16 05/05/24 12:33
APTT 33.4 Sec (23.4-35.0) 05/05/24 12:33
pH Cancelled 05/07/24 15:08
pCO2 Cancelled 05/07/24 15:08
pO2 Cancelled 05/07/24 15:08
HCO3 Cancelled 05/07/24 15:08
Base Excess Cancelled 05/07/24 15:08
ABG O2 Sat (Measured) Cancelled 05/07/24 15:08
VBG pH 7.42 (7.32-7.43) 05/04/24 11:30
VBG pCO2 40 mmHg (35-48) 05/04/24 11:30
VBG pO2 124 mmHg (30-50) H 05/04/24 11:30
VBG HCO3 25.9 mmol/L (22-27) 05/04/24 11:30
VBG O2 Sat (Nara) 99.3 % 05/04/24 11:30
VBG Base Excess 1.3 mmol/L (-4 to +4) 05/04/24 11:30
VBG O2 Therapy 21 05/04/24 11:30
O2 Delivery Level Cancelled 05/07/24 15:08
Sodium 140 mmol/L (135-145) 05/09/24 08:50
Potassium 3.7 mmol/L (3.5-5.1) 05/09/24 08:50
Chloride 98 mmol/L (98-107) 05/09/24 08:50
Carbon Dioxide 31 mmol/L (22-30) H 05/09/24 08:50
BUN 16 mg/dl (9-20) 05/09/24 08:50
Creatinine 0.6 mg/dL (0.7-1.3) L 05/09/24 08:50
Estimated Creat Clear > 125 ml/min 05/09/24 08:50
eGFR > 60.00 05/09/24 08:50
Glucose 161 mg/dl (70-99) H 05/09/24 08:50
Lactic Acid Cancelled 05/04/24 15:15
Calcium 8.5 mg/dl (8.4-10.2) 05/09/24 08:50
Phosphorus 2.9 mg/dl (2.5-4.5) 05/09/24 08:50
Magnesium 2.3 mg/dl (1.6-2.3) 05/08/24 04:19
Total Bilirubin 0.9 mg/dl (0.2-1.3) 05/07/24 03:28
AST 48 U/L (17-59) 05/07/24 03:28
ALT 33 U/L (0-50) 05/07/24 03:28
Alkaline Phosphatase 45 U/L (38-126) 05/07/24 03:28
Ammonia 24 umol/L (9-30) 05/05/24 11:40
Creatine Kinase 178 U/L (55-170) H 05/05/24 20:18
Troponin I < 0.012 ng/ml 05/04/24 11:27
Total Protein 5.6 g/dl (6.3-8.2) L 05/07/24 03:28
Albumin 3.1 g/dl (3.5-5.0) L 05/07/24 03:28
Triglycerides Cancelled 05/05/24 20:19
TSH (Reflex) 2.53 uIU/ml (0.47-4.68) 05/05/24 11:40
Urine Color Yellow 05/04/24 11:43
Urine Clarity Clear (Clear) 05/04/24 11:43
Urine pH 6.0 (5.0-9.0) 05/04/24 11:43
Ur Specific Bozman 1.025 (<1.030) 05/04/24 11:43
Urine Ketones 1+ (Negative) A 05/04/24 11:43
Ur Occult Blood Reflex Negative (Negative) 05/04/24 11:43
Urine Nitrite (Reflex) Negative (Negative) 05/04/24 11:43
Urine Bilirubin 1+ (Negative) A 05/04/24 11:43
Urine Urobilinogen Negative (Neg - 1+) 05/04/24 11:43
Leukocyte Esterase Rfl Negative (Negative) 05/04/24 11:43
Urine Glucose Negative (Negative) 05/04/24 11:43
Urine Albumin (Reflex) Trace (Neg - Trace) 05/04/24 11:43
CSF Appearance Clear 05/05/24 17:00
CSF Color Colorless 05/05/24 17:00
CSF WBC 6 mm^3 (0-5) H* 05/05/24 17:00
CSF RBC 49 mm^3 05/05/24 17:00
CSF Cell Count Tube # 4 05/05/24 17:00
CSF Granulocytes 1 % 05/05/24 17:00
CSF Lymphocytes 82 % 05/05/24 17:00
CSF Macrophages 17 % 05/05/24 17:00
CSF Glucose 82 mg/dl (40-70) H 05/05/24 17:00
CSF Total Protein 130 mg/dl (12-60) H 05/05/24 17:00
Urine Opiates Screen Negative (Negative) 05/04/24 11:43
Ur Buprenorphine Negative (Negative) 05/04/24 11:43
Ur Oxycodone Screen Negative (Negative) 05/04/24 11:43
Urine Methadone Screen Negative (Negative) 05/04/24 11:43
Ur Barbiturates Screen Negative (Negative) 05/04/24 11:43
Ur Tricyclics Screen Negative (Negative) 05/04/24 11:43
Ur Phencyclidine Scrn Negative (Negative) 05/04/24 11:43
Ur Amphetamines Screen Negative (Negative) 05/04/24 11:43
U Methamphetamines Scrn Negative (Negative) 05/04/24 11:43
U Benzodiazepines Scrn Negative (Negative) 05/04/24 11:43
Urine Cocaine Screen Negative (Negative) 05/04/24 11:43
U Marijuana (THC) Screen Negative (Negative) 05/04/24 11:43
Alcohol, Quantitative None detected mg/dl 05/04/24 11:27
Syphilis Serology Negative (Negative) 05/06/24 04:10
Lyme Screen IgG & IgM Negative (Negative) 05/05/24 05:19
West Nile Virus IgM Ab 0.15 IV (<=0.89) 05/05/24 05:19
SARS-CoV-2 Antigen Negative (Negative) 05/04/24 11:27
POC Glucose 149 mg/dl (70-99) H 05/05/24 15:04
�
Diagnostic Results:�as per HPI�
Routine EEG(05/06/2024)�diffuse cortical dysfunction without focal abnormality. No seizures were recorded.In comparison with the prior study, this study was worse as there was reduced cortical activity.
Brain MRI [place]�mild signal alteration of the bilateral cerebral cortices with hyperintense FLAIR and DWI signal.
CXR(05/05/2024) no active cardiopulmonary disease.
CT head-No acute intracranial abnormality.
CTA head/neck-no evidence of M1 or M2 occlusion. There is no carotid dissection. There is no focal stenosis. Possible moderate left lower lobe pneumonia
C spine CT- severe disc space narrowing at C5/6 and C6/7. There is moderate narrowing at C7/T1.
�
Assessment: 73-year-old male with PMH of left shoulder injury presented to ED with cough, lethargy and mental status change. Found to have pneumonia on CT scan. Started on antibiotics. Had seizure like activity and started on Keppra for seizure
precautions. Had extensive work-up for cause of encephalopathy.Slowly improving on antibiotics, but still with cognitive impairments.
�
Plan�
PM&R�PT/OT to increase independence with ADLs, improve balance, coordination, endurance, strength, mobility, community reintegration, decreased burden of care on others and family education.�
Debility: Cont OT/PT
�
Multifactorial encephalopathy (toxic, infectious), clinically improved
- assessing for potentially treatable causes which patient has potential exposure to
- blood cultures x2 in progress
- HSV/VZV/CMV/HHV6/enterovirus/listeria negative by PCR on CSF with good sensitivity
- lyme serology - negative
- influenza was negative by pcr
- west nile serology on serum negative
- west nile serology of CSF added on-in process
- syphilis serology on serum-negative
- c/w empiric doxycycline
Pulmonary infiltrate/Possible pneumonia
- blood cultures x2 in progress-preliminary no growth after 4 days.
- respiratory culture usual sienna
- agree with radiology rec to repeat imaging in a few weeks for clearance - can be done with PCP
- continue ceftriaxone (dose adjusted) and doxycycline - convert to oral when feasible
seizure precautions
-Reduce Keppra to 500 mg BID
EEG on 05/06- with no seizures activities.
Dysphagia: speech evaluation, off feeding tube, aspiration precautions.�On soft and bite sized diet.
Expressive Aphasia: speech evaluation. havign some trouble finding words to express thought and when answering some questions.�
Elevated BP/HTN: Lisinopril 20 mg daily. Labetalol 10mg IV q 6 hours prn. monitor closely�
Psych: Psychology consult.� Monitor mood, adjust medications as needed.�
Skin: monitor for pressure sores/rashes/lesions.�
Pain: acetaminophen as needed.�
Bowel: Miralax po,
Bladder: Time void, PVRs, PRN straight cath.�
GI Prophylaxis: Pantoprazole�
DVT Prophylaxis: Mechanical and Lovenox 40 sc qd
Pulmonary: Incentive spirometry�
Morbid obesity: Continue to vocational counselor patient about diet adjustments to control obesity. Body habitus and increased force to move body and extremities causes further difficulty with functional tasks.�
Safety: Continue to reinforce assistance with all transfers.�
Code Status:� Full code
Dispo�(date/plan/equipment needs): Home with family care.� Social history reviewed.�
�Functional and Medical Goals:�Modified Independent with ADL�s, ambulation, transfers�
�Discharge Destination:�Acute inpatient rehabilitation once medically and cognitively stable
�
Summary of recommendations: Patient with cognitive impairment, debility, and tachypnea secondary to encephalopathy showing some improvement clinically and cognitively. He may benefit from acute inpatient rehabilitation for PT/OT/speech to increase
independence with ADLs, improve balance, coordination, endurance, strength, and family education once he is medically stable,all pending labs resolved, improved blood pressure control off IV medications and improved respiratory rate at rest without
need for supplemental oxygenation in order to tolerate acute rehabilitation.
Multifactorial encephalopathy (toxic, infectious), clinically improving
- c/w empiric doxycycline- Afebrile
Dysphagia: speech evaluation, off feeding tube, aspiration precautions.�On soft and bite sized diet.
Expressive Aphasia: speech evaluation. having some trouble finding words to express thoughts and to answer some questions.�
Elevated BP/HTN: Lisinopril 20 mg daily. Labetalol 10mg IV q 6 hours prn. monitor closely�
Skin: monitor for pressure sores/rashes/lesions.�
Pain: acetaminophen as needed.�
LLE weakness: unclear etiology-Could check imaging of lumbar spine for potential cause
Bowel: Miralax po,
Bladder: Time void, PVRs, PRN straight cath.�
-GI Prophylaxis: recommend Pantoprazole�0mg qd
DVT Prophylaxis: Mechanical and Lovenox 40 sc qd
Pulmonary: Incentive spirometry�
Morbid obesity: Continue to vocational counselor patient about diet adjustments to control obesity. Body habitus and increased force to move body and extremities causes further difficulty with functional tasks.�
Safety: Continue to reinforce assistance with all transfers.�
Code Status:� Full code
Attending Statement:
I saw and examined the patient today. Reviewed care plan with patient, therapy, nursing, and physician asset protection assistant. I agree with the above subjective and physical exam, and plan as documented by NIKOLAS Galvez with adjustments made as necessary.
Thank you for allowing me to care for your patient. Please contact me with any questions or concerns.
[2024-05-08] MEDS: LASIX 20 MG IV (16:10)
--- NOTE | 2024-05-08 16:39 | W.PN.UPDATE ---
Update Note
Progress Note Update
Neurological status significantly improved. Still not back to baseline.
Hemodynamically stable.
Oxygen has been weaned off.
Will give extra 20 mg of Lasix as the patient's weight is significantly increased from his baseline.
Continue physical therapy/Occupational Therapy
May need to be placed in rehab before going home.
Will transition to intermediate care unit.
Critical care team will sign off.
Please call pulmonary if any respiratory issues arise.
Again, I recommend outpatient pulmonary follow-up for sleep apnea evaluation and follow-up on lung infiltrates after completing therapy.
[2024-05-08] MEDS: LOVENOX 40 MG SC (18:04)
[2024-05-08] MEDS: VIBRAMYCIN 100 MG PO (20:06)
[2024-05-08] MEDS: KEPPRA 500 MG PO (20:06)
--- NOTE | 2024-05-08 20:14 | PTCARENOTE ---
ax3- slow to respond- sinus afebrile- swallowed pills whole without issue- mckinnon draining yellow rt picc intact-skin intact,. bp slightly elevated 156/94- will administer prn Trandate if meets parameters. see worklist/mar.
[2024-05-09] VITALS (14 sets, daily range): BP systolic 131–185; BP diastolic 76–105; BMI 36.8
[2024-05-09] MEDS: TRANDATE 10 MG IV ×2 (02:17→10:29)
--- NOTE | 2024-05-09 02:41 | PTCARENOTE ---
labetalol given fro htn- see mar- pt remains ax3 but forgetful and sometimes impulsive- easily reoriented- bed alarm functioning properly- sinus afebrile
[2024-05-09] MEDS: STERILE WATER FOR INJECTION 20 ML IV (05:45)
[2024-05-09] MEDS: ROCEPHIN 2000 MG IV (05:45)
--- NOTE | 2024-05-09 05:55 | PTCARENOTE ---
more alert as shift went on- catheter pulled- pt tolerated- pt will use urinal
[2024-05-09] MEDS: CATHFLO/ACTIVASE 2 MG INTRACATH (06:11)
--- NOTE | 2024-05-09 06:28 | VATNOTE ---
CALLED TO ASSESS LACK OF BR FROM EITHER LUMEN OF 5FR DL R PICC. BOTH LUMENS FLUSH WELL BUT NO BR DESPITE MULTIPLE ATTEMPTS AND MANUEUVERS. CATH FELECIA PROTOCOL VIA PURPLE LUMEN. VAT TO FOLLOW. PCN AWARE OF INTERVENTION.
--- NOTE | 2024-05-09 06:29 | PTCARENOTE ---
family at bedside- updated them on poc and progress made with pt's permission
--- NOTE | 2024-05-09 06:36 | PTCARENOTE ---
picc line with no blood return- iv team initiated cath flow- unable to get labs at this time- will get labs when picc has blood return
--- NOTE | 2024-05-09 08:36 | VATNOTE ---
Right PICC line reassessed. Brisk blood return obtained from both lumens of PICC line. 5mls blood and cathflo withdrawn and discarded from purple lumen. Each lumen flushed with 10 mls NSS. Primary care RN made aware.
[2024-05-09] MEDS: NEUTRA-PHOS POWDER PACKET 250 MG TUBE ×2 (08:40→14:12)
[2024-05-09] MEDS: VIBRAMYCIN 100 MG PO (08:40)
[2024-05-09] MEDS: KEPPRA 500 MG PO ×2 (08:40→20:03)
[2024-05-09] MEDS: MIRALAX 17 GRAMS TUBE (08:40)
--- NOTE | 2024-05-09 08:58 | W.PN.ID1 ---
Date of Service
Date of Service: May 09, 2024
Today's Communication
encephalitis rapidly improving
- completed 5 days of ceftriaxone and doxycycline - stopped
Assessment / Plan
Encephalitis - resolving
- blood cultures x2 in progress
- HSV/VZV/CMV/HHV6/enterovirus/listeria negative by PCR on CSF with good sensitivity
- lyme serology negative
- syphilis serology negative
- supportive care
Resolved pneumonia
- blood cultures x2 in progress no growth to date
- resp culture usual resp sienna
- agree with radiology rec to repeat imaging in a few weeks for clearance - can be done with PCP
- completed 5 days of ceftriaxone and doxycycline - stopped
follow clinically
Chief Complaint
-: Other (encephalitis)
Subjective / Review of Systems
afebrile
alert and conversant today
no complaints
Vital Signs / Physical Exam
Vital Signs
Vital Signs
Temp Pulse Resp BP Pulse Ox
97.9 F 85 26 159/86 92
05/09/24 07:00 05/09/24 06:10 05/09/24 06:10 05/09/24 06:10 05/09/24 04:00
Physical Exam
Constitutional: No Acute Distress
Cardiovascular: Regular Rate and S1/S2; Negative Murmur or Rub
Pulmonary: Clear and Symmetric; Negative Wheezes or Rales
Gastrointestinal: Soft, Non Tender, Non Distended and Normal Bowel Sounds
Skin: Warm and Dry; Negative Rash or Jaundice
Objective Data
Lab Data
PT 14.6 Sec (11.4-14.6) 05/05/24 12:33
INR 1.16 05/05/24 12:33
APTT 33.4 Sec (23.4-35.0) 05/05/24 12:33
Estimated Creat Clear > 125 ml/min 05/08/24 04:19
Lactic Acid Cancelled 05/04/24 15:15
Total Bilirubin 0.9 mg/dl (0.2-1.3) 05/07/24 03:28
AST 48 U/L (17-59) 05/07/24 03:28
ALT 33 U/L (0-50) 05/07/24 03:28
Alkaline Phosphatase 45 U/L (38-126) 05/07/24 03:28
Most recent labs reviewed.
Micro Results:
05/05/24 01:44 Blood Culture - Preliminary
Blood/Venous No Growth in 4 days- Final report to follow
05/04/24 21:34 Blood Culture - Preliminary
Blood/Venous No Growth in 4 days- Final report to follow
05/05/24 17:00 CSF Culture - Preliminary
Csf No Growth After 72 Hours
Gram Stain - Preliminary
05/05/24 20:19 Respiratory Culture - Final
Sputum Usual Respiratory Sienna
Gram Stain - Final
05/05/24 17:00 Meningitis/Encephalitis Panel (PCR) - Final
Csf
05/04/24 00:00 Nasal Screen MRSA (PCR) - Final
Nose MRSA not detected - performed by PCR methodology.
05/04/24 21:37 Legionella Urinary Antigen - Final
Urine Negative for Legionella pneumophila Serogroup 1 antigen.
A negative result does not rule out the possiblity of
Legionella infection due to other serogroups or species of
Legionella. Clinical correlation is recommended.
Streptococcus pneumoniae Antigen (M - Final
Negative for Streptococcus pneumoniae antigen.
A negative result does not exclude infection with
Streptococcus pneumoniae. Clinical correlation is
recommended.
05/04/24 11:27 Influenza Types A & B (KEVON) - Final
Nasal Swab Negative for Influenza A & B, NAAT
Negative results must be combined with clinical observations
and patient history.
Nucleic Acid Amplification test (NAAT)performed on the
[employer] platform.
--- NOTE | 2024-05-09 08:59 | W.PN.HOSP.TC ---
Today's Communication/Plan
-
see bold
Assessment / Plan
Assessment / Plan
HPI: 73-year-old male past medical history of left shoulder injury presenting to the emergency room for fall and altered mental status. History is obtained from patient's [id number] who is a nurse. Patient has been having productive cough with
chest congestion for the past 2 weeks. He had been self-medicating with 3 Aleve in the morning and 3 Aleve at night as well as DayQuil and NyQuil's. He also had some amoxicillin which he was taking.
This morning he was noted to be lethargic while he was walking he was leaning to 1 side and had a witnessed fall. This was witnessed by patient's brother. Medics were called. On arrival patient was awake and alert but having difficulty following
commands and was nonverbal. Patient was last seen normal yesterday evening.
#Fever
#Sepsis
#Encephalitis
#Multifactorial encephalopathy
Appreciate neurology and ID input, LP not consistent with meningitis, acyclovir/Vanco/ampicillin discontinued
HSV/VZV/CMV/HHV6/enterovirus/listeria negative by PCR on CSF
Blood/sputum cx NTD
Brain MRI neg for CVA, shows nonspecific changes with mild atrophy, West Nile neg, Lyme pending
Continue Rocephin and doxycycline, fever curve improved
#Intubated for airway protection 05/05
Appreciate senior asic design engineer input, extubated 05/07
Cleared for soft diet 05/08, has been tolerating
Out of ICU 05/08
#Possible pneumonia
Continue antibiotics as above
#Possible seizure activity on 05/05
EEG negative
Status post Versed drip, Keppra dose reduced to 500 mg po every 12 hours as per neurology
#Hypokalemia
#Hypophosphatemia
Replete as needed
# Drug-induced hypotension
Resolved status post phenylephrine drip
#Hypertensive urgency
Status post Cardene drip
Labetalol IV as needed
Start lisinopril 20 mg daily 05/09
#Obesity due to excess calories
Affects all aspects of care
#Recent dental procedure
DVT prophylaxis�subcu Lovenox
GI prophylaxis�Protonix
Full code
Dispo - PT rec acute rehab, physiatry/Dr. Griffith notified 05/08
Updated family at bedside 05/09
Total time spent to see the patient on the floor, examine the patient, review data and lab results, discuss treatment plan with patient, nursing staff around 50 minutes.
Physical Exam
General: No acute distress
HEENT: Normocephalic, Atraumatic, EOMI, MMM
Respiratory: Clear to Auscultation bilaterally
Cardiac: Normal S1/S2, Regular Rate and Rhythm
GI: Soft, Nontender, Nondistended, Normal Bowel Sounds
Extremities: No Clubbing, Cyanosis
Neuro: Following commands, answering questions
Anticipated Discharge: > 48 hours
Subjective/Interval History
-
Date of Service: May 09, 2024
Patient alert, awake, answering questions, following commands. Denies chest pain. Has headache. No fever, no vomiting.
Objective Data
-
Labs:
Laboratory Results
05/09/24
08:50
WBC Pending
Hgb Pending
Hct Pending
Plt Count Pending
Sodium Pending
Potassium Pending
Chloride Pending
Carbon Dioxide Pending
BUN Pending
Creatinine Pending
Glucose Pending
Calcium Pending
Vital Signs:
Vital Signs
Temp Pulse Resp BP Pulse Ox
97.9 F 85 26 159/86 92
05/09/24 07:00 05/09/24 06:10 05/09/24 06:10 05/09/24 06:10 05/09/24 04:00
I&O
05/08/24 05/09/2405/10/24
06:59 06:59 06:59
Intake Total 2685 / 2815 2360 / 2360
Output Total 3555 / 3605 4150 / 4150
Balance -870 / -830 -1790 / -1790
[2024-05-09 09:05] LABS: Hematocrit 35.5 % (39.0-52.0); Hemoglobin 12.5 g/dL (13.0-18.0); Mean Corp Hgb Conc. 35.2 g/dL (33.0-37.0); Mean Corpuscular Hgb 33.2 pg (27.0-31.0); Mean Corpuscular Volume 94.4 fL (80.0-94.0); Mean Platelet Volume 10.1 fL (7.4-10.4); Platelet Count 162 10^3/uL (130-400); Red Blood Cell Count 3.76 10^6/uL (4.70-6.10); Red Cell Dist. Width 13.2 % (11.5-14.5)
[2024-05-09 09:37] LABS: Blood Urea Nitrogen 16 mg/dl (9-20); Calcium 8.5 mg/dl (8.4-10.2); Carbon Dioxide 31 mmol/L (22-30); Chloride 98 mmol/L (98-107); Estimated Creatinine Clearance > 125 ml/min; Glucose 161 mg/dl (70-99); Phosphorus 2.9 mg/dl (2.5-4.5); Potassium 3.7 mmol/L (3.5-5.1); Sodium 140 mmol/L (135-145); eGFR > 60.00
[2024-05-09 10:49] LABS: Syphilis/T. pallidum Ab Reflex Negative (Negative)
--- NOTE | 2024-05-09 10:59 | PTCARENOTE ---
Pt received in bed @ 0700. AAO x2-3. At times answers 'my house' to place. Other times able to state [facility]. Sinus rhythm on monitoring analyst. PRN Labetalol 10mg IV given for SBP > 160s. SaO2 95% on room air. Diminished. Abdomen round,
distended. Assisted to BSC for small formed bowel movement. Voiding into urinal with episode of incontinence. CHG cloth bath provided. (R) DL PICC with (+) blood return; flushed.
--- NOTE | 2024-05-09 12:24 | CM ---
CM following re: discharge planning.
Discussed in Rounds, reviewed pt's chart, met with pt. Pt's family at bedside. Per Rounds meeting, pt's neurological status has been improving, not at baseline, presents AAOx2, continue supportive care and pt will be downgraded from ICU level of
care.
PT and OT evaluations noted - acute level of rehab recommended. family preferred [facility] and if pt does not qualify then [facility] as an alternative.
PM&R consult pending.
D/C plan: Plan A: [facility]. Alternate plan B: [facility] if acute rehab is not approved.
CM will follow with discharge plan updates as hospitalization progresses
[2024-05-09 14:22] LABS: Lyme Antibody Screen, EIA Negative (Negative)
[2024-05-09] MEDS: ZESTRIL 20 MG PO (16:11)
[2024-05-09] MEDS: LOVENOX 40 MG SC (17:37)
--- NOTE | 2024-05-09 17:46 | PTCARENOTE ---
Pt frequently trying to get OOB of chair or bed. Chair alarm and bed alarm going off multiple times. Med sitter in room for pt. safety. Will continue to monitor
--- NOTE | 2024-05-09 19:50 | PTCARENOTE ---
Handoff report received from off going RN. Patient is AAOx3 and forgetful. Pt recalls events that brought him to the hospital. Pt however continues to get OOB despite reorientation/redirecting. 1:1 at the bedside. Plan of care for the shift reviewed
with the patient. Questions encouraged. Sinus rhythm with 1st degree heart block on the monitor. Right dual lumen PICC is patent. Diminished breath sounds. SpO2 at 96% on room air. IS max at 2000 ml x3 attempts. Audible BS. The patient voids via
the urinal. Full assessment as noted on the flowsheet.
[2024-05-10] VITALS (13 sets, daily range): BP systolic 122–174; BP diastolic 80–110; BMI 35.9
[2024-05-10] MEDS: TRANDATE 10 MG IV ×2 (00:14→08:42)
--- NOTE | 2024-05-10 00:19 | PTCARENOTE ---
Patient reassessed. Oriented x3, but forgetful. The patient is easy to redirected. BP 166/97. PRN Trandate administered. RR 22.
bed exit alarm in use. 1:1 bedside observation continued. Safety measures maintained.
--- NOTE | 2024-05-10 04:52 | PTCARENOTE ---
Patient reassessed. Pt's resting in bed. VSS. Unlabored breathing with even chest rise. MAEx4. No changes from the previous assessment. 1:1 remains at the bedside.
[2024-05-10 05:34] LABS: Hematocrit 34.6 % (39.0-52.0); Hemoglobin 12.2 g/dL (13.0-18.0); Mean Corp Hgb Conc. 35.3 g/dL (33.0-37.0); Mean Corpuscular Volume 96.4 fL (80.0-94.0); Mean Platelet Volume 10.2 fL (7.4-10.4); Platelet Count 156 10^3/uL (130-400); Red Blood Cell Count 3.59 10^6/uL (4.70-6.10); Red Cell Dist. Width 13.1 % (11.5-14.5); White Blood Cell Count 6.4 10^3/uL (4.8-10.8)
[2024-05-10 05:41] LABS: Blood Urea Nitrogen 16 mg/dl (9-20); Calcium 8.8 mg/dl (8.4-10.2); Carbon Dioxide 33 mmol/L (22-30); Chloride 99 mmol/L (98-107); Estimated Creatinine Clearance > 125 ml/min; Glucose 110 mg/dl (70-99); Potassium 3.7 mmol/L (3.5-5.1); Sodium 140 mmol/L (135-145); eGFR > 60.00
--- NOTE | 2024-05-10 08:20 | PTCARENOTE ---
Pt received in bed @ 0700. AAO 2-3; in and out of orientation to place. Forgetful. Impulsive with frequent urge to void. Pt attempts to stand, unbalanced, requiring assistance. Bed alarm, 1:1, and video monitor in place. Sinus rhythm/Sinus tach with
1st degree AV block on stockkeeper. Trace pitting LE edema. PRN Trandate 10mg IV administered for SBP > 160. Scheduled Lisinopril administered. SaO2 95% on room air. Lungs clear to auscultation. Occasional nonproductive cough. Tolerating PO
intake. (+) bowel sounds. Round obese belly. Frequent clear yellow urine into urinal, incontinent at times. (R) DL PICC with (+) blood return, flushed.
[2024-05-10] MEDS: ZESTRIL 20 MG PO (08:34)
[2024-05-10] MEDS: KEPPRA 500 MG PO ×2 (08:35→20:14)
[2024-05-10] MEDS: MIRALAX 17 GRAMS PO (08:35)
--- NOTE | 2024-05-10 09:22 | W.PN.HOSP.TC ---
Today's Communication/Plan
-
Stable for telemetry
Assessment / Plan
Assessment / Plan
HPI: 73-year-old male past medical history of left shoulder injury presenting to the emergency room for fall and altered mental status. History is obtained from patient's [id number] who is a nurse. Patient has been having productive cough with
chest congestion for the past 2 weeks. He had been self-medicating with 3 Aleve in the morning and 3 Aleve at night as well as DayQuil and NyQuil's. He also had some amoxicillin which he was taking.
This morning he was noted to be lethargic while he was walking he was leaning to 1 side and had a witnessed fall. This was witnessed by patient's brother. Medics were called. On arrival patient was awake and alert but having difficulty following
commands and was nonverbal. Patient was last seen normal yesterday evening.
#Fever
#Sepsis
#Encephalitis
#Multifactorial encephalopathy
Appreciate neurology and ID input, LP not consistent with meningitis, acyclovir/Vanco/ampicillin discontinued
HSV/VZV/CMV/HHV6/enterovirus/listeria negative by PCR on CSF
Blood/sputum cx NTD
Brain MRI neg for CVA, shows nonspecific changes with mild atrophy, West Nile neg, Lyme pending
Status post Rocephin/doxycycline for 5 days
Patient continues to have waxing waning confusion, possibly from delirium versus sundowning versus residual effects of encephalitis
Continue supportive care, he will need acute rehab upon discharge
#Hypertensive urgency
Status post Cardene drip
Started lisinopril 20 mg daily 05/09
Start amlodipine 5 mg daily 05/10
Add hydralazine 50 mg p.o. 3 times daily as needed systolic blood pressure greater than 160
#Intubated for airway protection 05/05
Appreciate diamond sizer input, extubated 05/07
Cleared for soft diet 05/08, has been tolerating
Out of ICU 05/08
#Pneumonia
Resolved status post IV antibiotics
Recommend repeat chest x-ray in 4-6 weeks for clearance
#Possible seizure activity on 05/05
EEG negative
Status post Versed drip, Keppra dose reduced to 500 mg po every 12 hours as per neurology
#Hypokalemia
#Hypophosphatemia
Replete as needed
# Drug-induced hypotension
Resolved status post phenylephrine drip
#Obesity due to excess calories
Affects all aspects of care
#Recent dental procedure
DVT prophylaxis�subcu Lovenox
GI prophylaxis�Protonix
Full code
Dispo - PT rec acute rehab, physiatry/Dr. Griffith notified 05/08
Updated family at bedside 05/09
Updated daughter on phone 05/09
Total time spent to see the patient on the floor, examine the patient, review data and lab results, discuss treatment plan with patient, nursing staff around 55 minutes.
Physical Exam
General: No acute distress
HEENT: Normocephalic, Atraumatic, EOMI, MMM
Respiratory: Clear to Auscultation bilaterally
Cardiac: Normal S1/S2, Regular Rate and Rhythm
GI: Soft, Nontender, Nondistended, Normal Bowel Sounds
Extremities: No Clubbing, Cyanosis
Neuro: Following commands, answering questions
Anticipated Discharge: 24 - 48 hours
Subjective/Interval History
-
Date of Service: May 10, 2024
Patient alert, awake. He is answering questions, following commands. His family states he is back to baseline. No chest pain, no shortness of breath. No fever, no vomiting.
Objective Data
-
Labs:
Laboratory Results
05/10/24
04:58
WBC 6.4
Hgb 12.2 L
Hct 34.6 L
Plt Count 156
Sodium 140
Potassium 3.7
Chloride 99
Carbon Dioxide 33 H
BUN 16
Creatinine 0.6 L
Glucose 110 H
Calcium 8.8
Vital Signs:
Vital Signs
Temp Pulse Resp BP Pulse Ox
98.2 F 96 23 163/103 96
05/10/24 08:00 05/10/24 08:42 05/10/24 06:24 05/10/24 08:42 05/10/24 08:08
I&O
05/09/24 05/10/24 05/11/24
06:59 06:59 06:59
Intake Total 2360 / 2360 960 / 960 960 / 960
Output Total 4150 / 4150 1825 / 1825 375 / 375
Balance -1790 / -1790 -865 / -865 585 / 585
--- NOTE | 2024-05-10 15:25 | W.PN.NEURO.1 ---
Today's Communication / Plan
-
.
Subjective/Objective
Subjective Data
Date of Service: May 10, 2024
Neurology follow-up note
24-hour events. intermittently restless, worse in the evening.
MAR: Reviewed
PMH: no prior medical care
PSH: leg ORIF
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
FH: DM, CAD
All: NKDA
ROS: positive for fluctuating mental status, urinary urgency, intermittent confusion.
General: restrained
Cardio: Regular rate.
Neuro:
Mental Status: awake, oriented to name, person, , year, month, date. Impaired attention and comprehension. Difficulties following complex requests
CN: Orthophoric primary gaze. Pupils 3 mm, reactive. + corneals, gag
Motor: moves all limbs within bedplane
Reflexes: + bilateral grasp
Sensory: localizes noxious stimuli
Coordination: No tremors myoclonic movements.
Gait: unable
Assessment and Plan:
1. Multifactorial encephalopathy (toxic, infectious), clinically improved
2. Meningoencephalitis
3. Ambulatory dysfunction
-seizure precautions
-Repeat brain MRI [place] in 2weeks
-Continue Keppra 500 mg BID
-OP c EEG and neuropsychological evaluation
-No driving
-ID follow up
-dialysis social worker consult
-The case was discussed with patients family
I personally reviewed all radiology and labs along with past medical records pertinent to current medical problems. Total time spent in patient care is 40 minutes.
Thank you for allowing us to participate in the care of this patient. Please do not hesitate to contact us with any questions or concerns.
Objective Data
Vital Signs
Temp Pulse Resp BP Pulse Ox
36.9 C 88 22 156/103 96
05/10/24 12:00 05/10/24 12:00 05/10/24 12:00 05/10/24 12:00 05/10/24 08:08
Lab Results
05/10/24 04:58
05/10/24 04:58
PT 14.6 Sec (11.4-14.6) 05/05/24 12:33
INR 1.16 05/05/24 12:33
APTT 33.4 Sec (23.4-35.0) 05/05/24 12:33
Sodium 140 mmol/L (135-145) 05/10/24 04:58
Potassium 3.7 mmol/L (3.5-5.1) 05/10/24 04:58
BUN 16 mg/dl (9-20) 05/10/24 04:58
Glucose 110 mg/dl (70-99) H 05/10/24 04:58
Calcium 8.8 mg/dl (8.4-10.2) 05/10/24 04:58
Phosphorus 2.9 mg/dl (2.5-4.5) 05/09/24 08:50
Ur Buprenorphine Negative (Negative) 05/04/24 11:43
Patient Allergies
No Known Allergies Allergy (Verified 11/05/13 17:57)
Vital Signs and Labs
-
Vital Signs and Labs:
Vital Signs
Temp Pulse Resp BP Pulse Ox
36.9 C 88 22 156/103 96
05/10/24 12:00 05/10/24 12:00 05/10/24 12:00 05/10/24 12:00 05/10/24 08:08
Lab Results
05/10/24 04:58
05/10/24 04:58
PT 14.6 Sec (11.4-14.6) 05/05/24 12:33
INR 1.16 05/05/24 12:33
APTT 33.4 Sec (23.4-35.0) 05/05/24 12:33
Sodium 140 mmol/L (135-145) 05/10/24 04:58
Potassium 3.7 mmol/L (3.5-5.1) 05/10/24 04:58
BUN 16 mg/dl (9-20) 05/10/24 04:58
Glucose 110 mg/dl (70-99) H 05/10/24 04:58
Calcium 8.8 mg/dl (8.4-10.2) 05/10/24 04:58
Phosphorus 2.9 mg/dl (2.5-4.5) 05/09/24 08:50
Ur Buprenorphine Negative (Negative) 05/04/24 11:43
Medications
-
Medications:
Generic Name Dose Route Start Last Admin
Trade Name Freq PRN Reason Stop Dose Admin
Acetaminophen 650 mg 05/04/24 19:03 05/04/24 22:45
Acetaminophen 650 Mg Rectal Suppository RECTAL 06/01/24 19:02 650 mg
Q4HPRN PRN Administration
mild pain/SAUCEDO/temp> 100.4F
Amlodipine Besylate 5 mg 05/10/24 15:00
Amlodipine 5 Mg Tablet PO 06/07/24 14:59
DAILY FIDENCIO
Enoxaparin Sodium 40 mg 05/05/24 18:00 05/09/24 17:37
Enoxaparin Sodium 40 Mg/0.4 Ml Syringe SC 06/02/24 17:59 40 mg
QPM FIDENCIO Administration
Hydralazine HCl 50 mg 05/10/24 14:48
Hydralazine 50 Mg Tablet PO 06/07/24 14:47
TIDPRN PRN
SBP > 160
Levetiracetam 500 mg 05/08/24 20:00 05/10/24 08:35
Levetiracetam 500 Mg Regular Release Tablet PO 06/05/24 19:59 500 mg
BID FIDENCIO Administration
Lisinopril 20 mg 05/09/24 16:00 05/10/24 08:34
Lisinopril 20 Mg Tablet PO 06/06/24 15:59 20 mg
DAILY FIDENCIO Administration
Midazolam HCl 2 mg 05/05/24 16:00 05/05/24 15:55
Midazolam (Preservative Free) 1 Mg/Ml 2 Ml Vial IV 06/02/24 15:59 2 mg
[id number] PRN Administration
SEIZURE
Polyethylene Glycol 17 grams 05/09/24 15:11 05/10/24 08:35
Polyethylene Glycol Powder 17 Grams Packet PO 06/03/24 07:59 17 grams
DAILY FIDENCIO Administration
Sodium Chloride 0 flush 05/04/24 20:00
Sodium Chloride 0.9% (Flush) Syringe IV 06/01/24 19:59
PER PROTOCOL FIDENCIO
Home Medications
-
Home Medications
amoxicillin 500 mg capsule 1,000 mg PO TID Infection 05/04/24
naproxen sodium 220 mg tablet (Aleve) 660 mg PO BIDPRN PRN shoulder pains 05/04/24
[2024-05-10] MEDS: NORVASC 5 MG PO (16:26)
[2024-05-10] MEDS: LOVENOX 40 MG SC (17:04)
--- NOTE | 2024-05-10 19:24 | PTCARENOTE ---
Patient received in bed asleep. Patient is arousable to verbal commands. AAOx3 and able to make his needs known. Plan of care for the shift reviewed with the patient. Patient is with intermittent confusion/forgetfulness. Sinus rhythm with first
degree AVB on the monitor. Breath sounds are clear. SpO2 at 94% on room air. Pt's with wet cough occasionally. + BS. Abd is round and obese. Urinal is at the bedside. Patient declines mouth care at this time, stating that he'll 'do it later.' Pt
turns and repositions himself. Bed exit alarm is in place. Visual med sitter in use. Safety measures maintained. All needs are met at this time.
[2024-05-11] VITALS (7 sets, daily range): BP systolic 134–154; BP diastolic 80–101; PULSE 105; O2SAT 92; BMI 36.0
--- NOTE | 2024-05-11 00:31 | PTCARENOTE ---
Patient reassessed and forgetful. The patient does not utilize the call norton prior to getting oob. Pt removed his alert bands. Explained risk of falling and injury to the patient, and encouraged call norton utilization. Pt's verbalizes understanding
but doesn't follow through with task. Assisted the patient to the bathroom with a walker. Gait is slightly unsteady. The patient had a BM. Patient has a skin tear to his left elbow that is 3x2 cm. Site cleansed with saline and protective foam
placed. Bed check remains in use.
--- NOTE | 2024-05-11 04:58 | PTCARENOTE ---
Patient reassessed. VSS. Pt remains impulsive and forgetful. Easy to redirect. The patient is watching TV. No changes from the previous assessment.
[2024-05-11] MEDS: KEPPRA 500 MG PO ×2 (07:42→21:32)
[2024-05-11] MEDS: MIRALAX PO (07:42)
[2024-05-11] MEDS: ZESTRIL 20 MG PO (07:42)
[2024-05-11] MEDS: NORVASC 5 MG PO (07:42)
--- NOTE | 2024-05-11 08:44 | W.PN.HOSP.TC ---
Today's Communication/Plan
-
Discharge to acute rehab when bed available
Assessment / Plan
Assessment / Plan
HPI: 73-year-old male past medical history of left shoulder injury presenting to the emergency room for fall and altered mental status. History is obtained from patient's [id number] who is a nurse. Patient has been having productive cough with
chest congestion for the past 2 weeks. He had been self-medicating with 3 Aleve in the morning and 3 Aleve at night as well as DayQuil and NyQuil's. He also had some amoxicillin which he was taking.
This morning he was noted to be lethargic while he was walking he was leaning to 1 side and had a witnessed fall. This was witnessed by patient's brother. Medics were called. On arrival patient was awake and alert but having difficulty following
commands and was nonverbal. Patient was last seen normal yesterday evening.
#Fever
#Sepsis
#Encephalitis
#Multifactorial encephalopathy
Appreciate neurology and ID input, LP not consistent with meningitis, acyclovir/Vanco/ampicillin discontinued
HSV/VZV/CMV/HHV6/enterovirus/listeria negative by PCR on CSF
Blood/sputum cx NTD
Brain MRI neg for CVA, shows nonspecific changes with mild atrophy, West Nile neg, Lyme pending
Status post Rocephin/doxycycline for 5 days
Patient continues to have waxing waning confusion, possibly from delirium versus ing versus residual effects of encephalitis
Continue supportive care, discharge to acute rehab when bed available
#Hypertensive urgency
Status post Cardene drip
Started lisinopril 20 mg daily 05/09
Started amlodipine 5 mg daily 05/10
Added hydralazine 50 mg p.o. 3 times daily as needed systolic blood pressure greater than 160
#Intubated for airway protection 05/05
Appreciate procurement accountant input, extubated 05/07
Cleared for soft diet 05/08, has been tolerating
Out of ICU 05/08
#Pneumonia
Resolved status post IV antibiotics
Recommend repeat chest x-ray in 4-6 weeks for clearance
#Possible seizure activity on 05/05
EEG negative
Status post Versed drip, Keppra dose reduced to 500 mg po every 12 hours as per neurology
#Hypokalemia
#Hypophosphatemia
Replete as needed
# Drug-induced hypotension
Resolved status post phenylephrine drip
#Obesity due to excess calories
Affects all aspects of care
#Recent dental procedure
DVT prophylaxis�subcu Lovenox
GI prophylaxis�Protonix
Full code
Dispo - PT rec acute rehab, physiatry/Dr. Griffith notified 05/08
Updated family at bedside 05/09
Updated daughter on phone 05/10
Updated family at bedside 05/11
Total time spent to see the patient on the floor, examine the patient, review data and lab results, discuss treatment plan with patient, nursing staff around 51 minutes.
Physical Exam
General: No acute distress
HEENT: Normocephalic, Atraumatic, EOMI, MMM
Respiratory: Clear to Auscultation bilaterally
Cardiac: Normal S1/S2, Regular Rate and Rhythm
GI: Soft, Nontender, Nondistended, Normal Bowel Sounds
Extremities: No Clubbing, Cyanosis
Neuro: Following commands, answering questions
Oriented to person, place, time
Anticipated Discharge: 24 - 48 hours
Subjective/Interval History
-
Date of Service: May 11, 2024
Patient's confusion waxes and wanes. He is more oriented in the morning, then gets worse late afternoon/early evening. Has an intermittent headache. No fever, no vomiting. No chest pain, no shortness of breath.
Objective Data
-
Vital Signs:
Vital Signs
Temp Pulse Resp BP Pulse Ox
99.8 F 97 18 139/90 95
05/11/24 07:45 05/11/24 07:42 05/10/24 19:14 05/11/24 07:42 05/11/24 08:19
I&O
05/10/24 05/11/24 05/12/24
06:59 06:59 06:59
Intake Total 960 / 960 2270 / 2270
Output Total 1825 / 1825 1075 / 1075
Balance -865 / -865 1195 / 1195
--- NOTE | 2024-05-11 13:21 | VATNOTE ---
Right DL PICC removed. Catheter measured 46cm. #22 peripheral placed in left hand.
--- NOTE | 2024-05-11 17:04 | PTCARENOTE ---
Assumed cares. Assessment unchanged thru day. Patient vitals follow up as per telemetry based protocols. Continue ongoing safety rounds, video monitoring and family at bedside. Hourly checks or more frequent in progress. Redirection, reorientation
and refocus plan of day with patient several times thru day. Patient remains pleasant cooperative but very impulsive. Jumps up and climbs out of bed frequently. Continue with teaching and reinforcement. Several updates with family throughout day.
[2024-05-11] MEDS: LOVENOX 40 MG SC (17:42)
--- NOTE | 2024-05-11 21:51 | PTCARENOTE ---
Pt. resting in bed, can be impulsive to pee, forgetful, virtual 1:1 in room, bed alarm set. NSR some ectopy noted on bedside monitor, slightly hypertensive.
Forgetful but alert to follow commands when redirected. Normocephalic/atraumatic, no JVD noted, focally intact, pupils =/r 3mm.
NSR w/ marked PVCs noted, slightly hypertensive w/n parameters.
RA, sp02 >95.
[2024-05-12] VITALS (8 sets, daily range): BP systolic 114–141; BP diastolic 79–97; PULSE 90–106; O2SAT 96; BMI 36.5
--- NOTE | 2024-05-12 01:25 | PTCARENOTE ---
Assessment unchanged, Neuro status remains GCS 14 due to mild confusion which resolves quickly with reorientation.
Pt. resting comfortably.
virtual 1:[address]
--- NOTE | 2024-05-12 06:34 | W.PN.HOSP.TC ---
Today's Communication/Plan
-
PT/OT
Blood Pressure control
observe
Assessment / Plan
Assessment / Plan
HPI: 73-year-old male past medical history of left shoulder injury presenting to the emergency room for fall and altered mental status. History obtained from patient's [id number] who is nurse. Patient had been having productive cough with chest
congestion for the past 2 weeks. He had been self-medicating with 3 Aleve in the morning and 3 Aleve at night as well as DayQuil and NyQuil's. He also had some amoxicillin which he was taking. Morning he was noted to be lethargic while he
was walking, leaning to 1 side and had a witnessed fall. This was witnessed by patient's brother. Medics were called. On arrival patient was awake and alert but having difficulty following commands and was nonverbal.
#Fever
#Sepsis
#Encephalitis
#Multifactorial encephalopathy
Appreciate neurology and ID input, LP not consistent with meningitis, acyclovir/Vanco/ampicillin discontinued
HSV/VZV/CMV/HHV6/enterovirus/listeria negative by PCR on CSF
Blood/sputum cx NTD
Brain MRI neg for CVA, shows nonspecific changes with mild atrophy, West Nile neg, Lyme pending
Status post Rocephin/doxycycline for 5 days
Patient continues to have waxing waning confusion, possibly from delirium versus sundowning versus residual effects of encephalitis
Continue supportive care
Initially Recommended Acute Rehab, ambulatory status since improved, PT/OT appreciated updated recommendations for outpt PT/OT
#Hypertensive urgency
Status post Cardene drip
Started lisinopril 20 mg daily 05/09, cont
Started amlodipine 5 mg daily 05/10, cont
Hydralazine 50 mg p.o. 3 times daily as needed systolic blood pressure greater than 160
#Intubated for airway protection 05/05
Appreciate flight communications officer input, extubated 05/07
Cleared for soft diet 05/08, has been tolerating
Downgraded from ICU 05/08
#Pneumonia
Resolved status post IV antibiotics
Recommend repeat chest x-ray in 4-6 weeks for clearance
#Possible seizure activity on 05/05
EEG negative
Status post Versed drip, Keppra dose reduced to 500 mg po every 12 hours as per neurology
#Hypokalemia
#Hypophosphatemia
Monitor and Replete as necessary
# Drug-induced hypotension
Resolved status post phenylephrine drip
#Obesity due to excess calories
Affects all aspects of care
#Recent dental procedure
DVT prophylaxis�subcu Lovenox
GI prophylaxis�Protonix
Full code
discussed with patient, patient's daughter Stephanie, son Aren, nurse, and case mgmt.
Total time spent to see the patient on the floor, examine the patient, review data and lab results, discuss treatment plan with patient, nursing staff around 40 minutes.
Physical Exam
General: No acute distress
HEENT: Normocephalic, Atraumatic, EOMI, MMM
Respiratory: Clear to Auscultation bilaterally
Cardiac: Normal S1/S2, Regular Rate and Rhythm
GI: Soft, Nontender, Nondistended, Normal Bowel Sounds
Extremities: No Clubbing, Cyanosis
Neuro: Following commands, answering questions. AOx3 some confusion noted
Anticipated Discharge: 24 - 48 hours
Subjective/Interval History
-
Date of Service: May 12, 2024
AOx3 no acute distress. some confusion noted. Appears fatigued but comfortable. Family daughter Stephanie and son Aren present during evaluation.
Objective Data
-
Vital Signs:
Vital Signs
Temp Pulse Resp BP Pulse Ox
98 F 77 17 118/79 97
05/12/24 05:31 05/12/24 05:31 05/12/24 05:31 05/12/24 05:31 05/12/24 05:31
I&O
05/10/24 05/11/24 05/12/24
06:59 06:59 06:59
Intake Total 960 / 960 2270 / 2270 530 / 530
Output Total 1825 / 1825 1075 / 1075
Balance -865 / -865 1195 / 1195 530 / 530
[2024-05-12] MEDS: ZESTRIL 20 MG PO (08:08)
[2024-05-12] MEDS: MIRALAX 17 GRAMS PO (08:08)
[2024-05-12] MEDS: NORVASC 5 MG PO (08:08)
[2024-05-12] MEDS: KEPPRA 500 MG PO ×2 (08:08→20:12)
--- NOTE | 2024-05-12 08:54 | W.PN.ID1 ---
Date of Service
Date of Service: May 12, 2024
Today's Communication
Note that not identifying an etiology of encephalitis is common. I focus on working up treatable causes as causes without treatment receive supportive care. Mr Duncan has responded well to supportive care and there is little further to add from
the ID perspective at this point in time.
ID service will no longer actively follow this patient please recall for further questions
Assessment / Plan
Encephalitis - resolving
- blood cultures x2 in progress
- HSV/VZV/CMV/HHV6/enterovirus/listeria negative by PCR on CSF with good sensitivity
- lyme serology negative
- syphilis serology negative
- west nile serology negative
- supportive care
Resolved pneumonia
- blood cultures x2 in progress no growth to date
- resp culture usual resp sienna
- agree with radiology rec to repeat imaging in a few weeks for clearance - can be done with PCP
- completed 5 days of ceftriaxone and doxycycline - stopped
Note that not identifying an etiology of encephalitis is common. I focus on working up treatable causes as causes without treatment receive supportive care. Mr Duncan has responded well to supportive care and there is little further to add from
the ID perspective at this point in time.
ID service will no longer actively follow this patient please recall for further questions
Chief Complaint
-: Other (encephalitis)
Subjective / Review of Systems
remains afebrile
bp stable
mildly confused and quickly reorienting
discussed with patient and family
Vital Signs / Physical Exam
Vital Signs
Vital Signs
Temp Pulse Resp BP Pulse Ox
98.0 F 96 20 116/85 95
05/12/24 08:02 05/12/24 08:08 05/12/24 08:04 05/12/24 08:08 05/12/24 08:04
Physical Exam
Constitutional: No Acute Distress
Cardiovascular: Regular Rate and S1/S2; Negative Murmur or Rub
Pulmonary: Clear and Symmetric; Negative Wheezes or Rales
Gastrointestinal: Soft, Non Tender, Non Distended and Normal Bowel Sounds
Skin: Warm and Dry; Negative Rash or Jaundice
Objective Data
Lab Data
Lab Results
05/10/24 04:58
05/10/24 04:58
PT 14.6 Sec (11.4-14.6) 05/05/24 12:33
INR 1.16 05/05/24 12:33
APTT 33.4 Sec (23.4-35.0) 05/05/24 12:33
Estimated Creat Clear > 125 ml/min 05/10/24 04:58
Lactic Acid Cancelled 05/04/24 15:15
Total Bilirubin 0.9 mg/dl (0.2-1.3) 05/07/24 03:28
AST 48 U/L (17-59) 05/07/24 03:28
ALT 33 U/L (0-50) 05/07/24 03:28
Alkaline Phosphatase 45 U/L (38-126) 05/07/24 03:28
Most recent labs reviewed.
Micro Results:
05/05/24 17:00 CSF Culture - Final
Csf No Growth After 5 Days - Final Report
Gram Stain - Final
05/05/24 01:44 Blood Culture - Final
Blood/Venous No Growth - Final Report
05/04/24 21:34 Blood Culture - Final
Blood/Venous No Growth - Final Report
05/05/24 20:19 Respiratory Culture - Final
Sputum Usual Respiratory Sienna
Gram Stain - Final
05/05/24 17:00 Meningitis/Encephalitis Panel (PCR) - Final
Csf
05/04/24 00:00 Nasal Screen MRSA (PCR) - Final
Nose MRSA not detected - performed by PCR methodology.
05/04/24 21:37 Legionella Urinary Antigen - Final
Urine Negative for Legionella pneumophila Serogroup 1 antigen.
A negative result does not rule out the possiblity of
Legionella infection due to other serogroups or species of
Legionella. Clinical correlation is recommended.
Streptococcus pneumoniae Antigen (M - Final
Negative for Streptococcus pneumoniae antigen.
A negative result does not exclude infection with
Streptococcus pneumoniae. Clinical correlation is
recommended.
05/04/24 11:27 Influenza Types A & B (KEVON) - Final
Nasal Swab Negative for Influenza A & B, NAAT
Negative results must be combined with clinical observations
and patient history.
Nucleic Acid Amplification test (NAAT)performed on the
[employer] platform.
Care Review
Plan reviewed with: Physician (message left for Dr Busch via tiger text)
--- NOTE | 2024-05-12 10:00 | PTCARENOTE ---
Rec'd care of patient at 0700. Patient alert and oriented. Slow to respond at times. Impulsive; mainly with urge to void. Ambulating to and from bathroom independently with supervision. NSR with pvcs on tele monitor. Trace edema in b/l LE. Palpable
pulses. Lung sounds diminished in b/l base. Teaching on IS provided. Patient demonstrating understanding. Pulse ox 95-97% on RA. +BS (hyperactive). No bm. +Flatus. Voiding in bathroom. Right forearm INT capped. VSS. Medsitter in place for
impulsiveness. Safe environment maintained.
--- NOTE | 2024-05-12 12:11 | PTCARENOTE ---
PT/OT at bedside. VSS. Patient downgraded to M/S.
--- NOTE | 2024-05-12 13:57 | CM ---
CM following re: discharge planning.
Reviewed pt's chart, met with pt and pt's brother at bedside.
According to PT and OT pt has been improved significantly and outpatient PT/OT, ST recommended. Pt is aware, expressed his agreement and pt stated she will come to outpatient therapy department.
D/C plan: home with outpatient PT/OT/ST at outpatient therapy department. Family to transport at discharge.
CM will follow with discharge plan updates as needed.
--- NOTE | 2024-05-12 15:20 | PTOTSP ---
SPEECH THERAPY SWALLOW FOLLOW UP NOTE:
Patient continues to exhibit clinical signs of oropharyngeal dysphagia, likely acutely related to multifactorial encephalopathy (toxic, infectious), encephalitis. Patient appears to be tolerating current diet without signs/symptoms of aspiration at
this time. Patient remains at risk for aspiration and related complications given confusion, impulsivity, reduced insight, reduced safety awareness. Recommend diet upgrade to Regular texture diet, thin liquids. Medications as best tolerated.
Aspiration precautions: Continue 100% supervision with meals, small single sips/bites, slow rate of intake, verbal cues to reduce rate/size of intake, monitor for signs of aspiration, d/c oral diet if any decline in mental or respiratory status. ST
to continue to follow, assess diet tolerance and modify as appropriate, determine indication for instrumental assessment of swallowing if appropriate, and complete full speech/language/cognitive communication evaluation given persistent cognitive
communication impairments. Consider continued ST services upon discharge to further assess/treat cognitive communication impairments. Discussed with RN/ Dr. Hermosillo.
RECOMMEND:
1) Regular texture diet, thin liquids
2) Medications as best tolerated
3) Aspiration precautions: Continue 100% supervision with meals, small single sips/bites, slow rate of intake, verbal cues to reduce rate/size of intake, monitor for signs of aspiration, d/c oral diet if any decline in mental or respiratory status
4) ST to continue to follow and complete full speech/language/cognitive communication evaluation given persistent cognitive communication impairments. Consider continued ST services upon discharge to further assess/treat cognitive communication
impairments
[2024-05-12] MEDS: LOVENOX 40 MG SC (17:43)
--- NOTE | 2024-05-12 18:51 | TRANSFER ---
Patient transported to 3W in wheelchair with belongings. Report given to CASTRO Melendez. Staff notified of patient's impulsiveness. Patient AAOx3. Oriented to surroundings.
[2024-05-13 03:20] VITALS: BP 121/76
[2024-05-13 07:03] LABS: Blood Urea Nitrogen 19 mg/dl (9-20); Calcium 8.8 mg/dl (8.4-10.2); Carbon Dioxide 30 mmol/L (22-30); Chloride 98 mmol/L (98-107); Estimated Creatinine Clearance 90 ml/min; Glucose 112 mg/dl (70-99); Magnesium 2.4 mg/dl (1.6-2.3); Phosphorus 3.8 mg/dl (2.5-4.5); Potassium 4.1 mmol/L (3.5-5.1); Sodium 142 mmol/L (135-145); eGFR > 60.00
[2024-05-13 07:20] LABS: Hematocrit 38.2 % (39.0-52.0); Hemoglobin 13.1 g/dL (13.0-18.0); Mean Corp Hgb Conc. 34.3 g/dL (33.0-37.0); Mean Corpuscular Volume 99.2 fL (80.0-94.0); Mean Platelet Volume 10.4 fL (7.4-10.4); Platelet Count 180 10^3/uL (130-400); Red Blood Cell Count 3.85 10^6/uL (4.70-6.10); Red Cell Dist. Width 13.5 % (11.5-14.5); White Blood Cell Count 6.5 10^3/uL (4.8-10.8)
[2024-05-13 07:33] VITALS: BP 129/87
--- NOTE | 2024-05-13 07:38 | W.PN.HOSP.TC ---
Today's Communication/Plan
-
d/c cafeteria monitor
ST/PT/OT
observe
Assessment / Plan
Assessment / Plan
HPI: 73-year-old male past medical history of left shoulder injury presenting to the emergency room for fall and altered mental status. History obtained from patient's [id number] who is nurse. Patient had been having productive cough with chest
congestion for the past 2 weeks. He had been self-medicating with 3 Aleve in the morning and 3 Aleve at night as well as DayQuil and NyQuil's. He also had some amoxicillin which he was taking. Morning he was noted to be lethargic while he
was walking, leaning to 1 side and had a witnessed fall. This was witnessed by patient's brother. Medics were called. On arrival patient was awake and alert but having difficulty following commands and was nonverbal.
#Fever
#Sepsis
#Encephalitis
#Multifactorial encephalopathy
Appreciate neurology and ID input, LP not consistent with meningitis, acyclovir/Vanco/ampicillin discontinued
HSV/VZV/CMV/HHV6/enterovirus/listeria negative by PCR on CSF
Blood/sputum cx NTD
Brain MRI neg for CVA, shows nonspecific changes with mild atrophy, West Nile neg, Lyme pending
Status post Rocephin/doxycycline for 5 days
Patient continues to have waxing waning confusion, possibly from delirium versus sundowning versus residual effects of encephalitis
Continue supportive care
Initially Recommended Acute Rehab, ambulatory status since improved, PT/OT appreciated updated recommendations for outpt PT/OT
#Hypertensive urgency
Status post Cardene drip
Started lisinopril 20 mg daily 05/09, reduced to 10 mg daily
Started amlodipine 5 mg daily 05/10, cont
Hydralazine 50 mg p.o. 3 times daily as needed systolic blood pressure greater than 160
#Intubated for airway protection 05/05
Appreciate belt sewer input, extubated 05/07
Cleared for soft diet 05/08, has been tolerating
Downgraded from ICU 05/08
#Pneumonia
Resolved status post IV antibiotics
Recommend repeat chest x-ray in 4-6 weeks for clearance
#Possible seizure activity on 05/05
EEG negative
Status post Versed drip, Keppra dose reduced to 500 mg po every 12 hours as per neurology
#Hypokalemia
#Hypophosphatemia
Monitor and Replete as necessary
# Drug-induced hypotension
Resolved status post phenylephrine drip
#Obesity due to excess calories
Affects all aspects of care
#Recent dental procedure
DVT prophylaxis�subcu Lovenox
GI prophylaxis�Protonix
Full code
discussed with patient and patient's daughter Stephanie
Total time spent to see the patient on the floor, examine the patient, review data and lab results, discuss treatment plan with patient, nursing staff around 40 minutes.
Physical Exam
General: No acute distress
HEENT: Normocephalic, Atraumatic, EOMI, MMM
Respiratory: Clear to Auscultation bilaterally
Cardiac: Normal S1/S2, Regular Rate and Rhythm
GI: Soft, Nontender, Nondistended, Normal Bowel Sounds
Extremities: No Clubbing, Cyanosis
Neuro: Following commands, answering questions. AOx3 some confusion noted, significant cognitive impairment persists
Anticipated Discharge: 24 - 48 hours
Subjective/Interval History
-
Date of Service: May 13, 2024
No acute distress. Appears comfortable. Ambulatory status significantly improved. Cognitive impairment however remains persistent though AOx3
Objective Data
-
Labs:
Laboratory Results
05/13/24
06:01
WBC 6.5
Hgb 13.1
Hct 38.2 L
Plt Count 180
Sodium 142
Potassium 4.1
Chloride 98
Carbon Dioxide 30
BUN 19
Creatinine 0.9
Glucose 112 H
Calcium 8.8
Vital Signs:
Vital Signs
Temp Pulse Resp BP Pulse Ox
98.8 F 90 20 129/87 92
05/13/24 07:33 05/13/24 07:33 05/13/24 07:33 05/13/24 07:33 05/13/24 07:33
I&O
05/12/24 05/13/24 05/14/24
06:59 06:59 06:59
Intake Total 530 / 530 540 / 540
Output Total
Balance 530 / 530 515 / 515
[2024-05-13] MEDS: NORVASC 5 MG PO (08:48)
[2024-05-13] MEDS: KEPPRA 500 MG PO ×2 (08:48→20:11)
[2024-05-13] MEDS: ZESTRIL 20 MG PO (08:48)
[2024-05-13] MEDS: MIRALAX 17 GRAMS PO (08:49)
[2024-05-13 11:23] VITALS: BP 94/58
[2024-05-13 13:42] LABS: Iron 109 ug/dl (49-181)
[2024-05-13 13:52] LABS: Percent Saturation 40 % (20-50); Total Iron Binding Capacity 269 ug/dl (261-462)
--- NOTE | 2024-05-13 13:55 | PTOTSP ---
Acute Care Evaluation
Baseline:
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
- Pt drives.
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
- Pt is independent with grocery shopping, cooking, cleaning, and finances.
- Pt does not take any medications at baseline except advil PRN.
- Pt does not perceive any hearing difficulties.
- Pt wears reading glasses.
- Pt and pt's family indicated that at baseline, pt is very talkative, interactive, and cognitively very strong - no noticeable speech, language, or cognitive issues at baseline.
Clinical Observations/Reports:
- Pt's family describe pt now as withdrawn, with a flat affect (even with grandson), reduced initiation of conversation, depressed, preoccupied, slower to respond verbally with some word-finding issues, and less animated/engaged with his family.
- CODING FILE CLERK perceives that pt may have some level of hearing loss.
Pt currently presents with a severe cognitive linguistic impairment (MOCA=8/30), which is a significant deviation from his baseline (baseline: no deficits, Independent with all ADLs, owned and operated his own business).
Recommendations:
- CODING FILE CLERK will continue to follow while admitted for ongoing dysphagia tx and cognitive linguistic tx.
- Pt would benefit from intensive cognitive linguistic tx at the acute care level of care upon d/c.
- Consider PM&R consult.
- Consider psych consult.
[2024-05-13 14:26] LABS: TSH Reflex To Free T4 5.48 uIU/ml (0.47-4.68)
[2024-05-13 15:02] LABS: Folate 8.2 ng/ml (2.76-20); Vitamin B12 559 pg/ml (239-931)
[2024-05-13 15:50] VITALS: BP 136/74
--- NOTE | 2024-05-13 16:02 | CM ---
Pt seen at bedside re d/c plan.
Pt seemed unaware of OP PT/OT/ST at , states he didn't know but agreed to services.
IMM reviewed, pt provided a copy. Copy placed into chart
Pt confirmed brother will transport at d/c
Plan: Home w/ OP PT/OT/ST at
[2024-05-13] MEDS: LOVENOX 40 MG SC (18:12)
[2024-05-13 23:50] VITALS: BP 109/58
--- NOTE | 2024-05-14 04:20 | DOWNTIME ---
There was a [employer] Client Youth Minister Downtime on 05/14/2024 from 0100 to 05/14/2024 at 0355. Downtime documentation of patient's care, including medication administrations, has been reconciled in the electronic record per guidelines. Refer to the
patient's paper chart under the miscellaneous tab to see printed paper medication records and downtime forms.
[2024-05-14 06:29] LABS: Hematocrit 36.3 % (39.0-52.0); Hemoglobin 12.6 g/dL (13.0-18.0); Mean Corp Hgb Conc. 34.7 g/dL (33.0-37.0); Mean Corpuscular Hgb 33.7 pg (27.0-31.0); Mean Corpuscular Volume 97.1 fL (80.0-94.0); Mean Platelet Volume 10.4 fL (7.4-10.4); Platelet Count 185 10^3/uL (130-400); Red Blood Cell Count 3.74 10^6/uL (4.70-6.10); Red Cell Dist. Width 13.6 % (11.5-14.5); White Blood Cell Count 5.7 10^3/uL (4.8-10.8)
[2024-05-14 07:14] LABS: Blood Urea Nitrogen 20 mg/dl (9-20); Calcium 8.8 mg/dl (8.4-10.2); Carbon Dioxide 30 mmol/L (22-30); Chloride 100 mmol/L (98-107); Estimated Creatinine Clearance 101 ml/min; Glucose 107 mg/dl (70-99); Magnesium 2.5 mg/dl (1.6-2.3); Phosphorus 3.6 mg/dl (2.5-4.5); Potassium 4.4 mmol/L (3.5-5.1); Sodium 138 mmol/L (135-145); eGFR > 60.00
--- NOTE | 2024-05-14 07:25 | W.PN.HOSP.TC ---
Today's Communication/Plan
-
discharge later today home with home services
Assessment / Plan
Assessment / Plan
HPI: 73-year-old male past medical history of left shoulder injury presenting to the emergency room for fall and altered mental status. History obtained from patient's [id number] who is nurse. Patient had been having productive cough with chest
congestion for the past 2 weeks. He had been self-medicating with 3 Aleve in the morning and 3 Aleve at night as well as DayQuil and NyQuil's. He also had some amoxicillin which he was taking. Morning he was noted to be lethargic while he
was walking, leaning to 1 side and had a witnessed fall. This was witnessed by patient's brother. Medics were called. On arrival patient was awake and alert but having difficulty following commands and was nonverbal.
#Fever
#Sepsis
#Encephalitis
#Multifactorial encephalopathy
Appreciate neurology and ID input, LP not consistent with meningitis, acyclovir/Vanco/ampicillin discontinued
HSV/VZV/CMV/HHV6/enterovirus/listeria negative by PCR on CSF
Blood/sputum cx NTD
Brain MRI neg for CVA, shows nonspecific changes with mild atrophy, West Nile neg, Lyme pending
Status post Rocephin/doxycycline for 5 days
Patient continues to have waxing waning confusion, possibly from delirium versus sundowning versus residual effects of encephalitis
Continue supportive care
Initially Recommended Acute Rehab, ambulatory status since improved, PT/OT appreciated updated recommendations for outpt PT/OT
outpt follow up MRI recommended
#Hypertensive urgency
Status post Cardene drip
Started lisinopril 20 mg daily 05/09, reduced to 10 mg daily due to low pressure value, avoiding hypotension
Started amlodipine 5 mg daily 05/10, cont
Hydralazine 50 mg p.o. 3 times daily as needed systolic blood pressure greater than 160
#Intubated for airway protection 05/05
Appreciate spiral runner input, extubated 05/07
Cleared for soft diet 05/08, has been tolerating
Downgraded from ICU 05/08
#Pneumonia
Resolved status post IV antibiotics
Recommend repeat chest x-ray outpt for clearance
#Possible seizure activity on 05/05
EEG negative
Status post Versed drip, Keppra dose reduced to 500 mg po every 12 hours as per neurology
#Hypokalemia
#Hypophosphatemia
Monitor and Replete as necessary
# Drug-induced hypotension
Resolved status post phenylephrine drip
#Obesity due to excess calories
Affects all aspects of care
#Recent dental procedure
DVT prophylaxis�subcu Lovenox
GI prophylaxis�Protonix
Full code
Medically stable for discharge home would recommend home services for now given significant cognitive dysfunction though improving
discussed with patient and patient's daughter Stephanie
Total time spent to see the patient on the floor, examine the patient, review data and lab results, discuss treatment plan with patient, nursing staff around 40 minutes.
Physical Exam
General: No acute distress
HEENT: Normocephalic, Atraumatic, EOMI, MMM
Respiratory: Clear to Auscultation bilaterally
Cardiac: Normal S1/S2, Regular Rate and Rhythm
GI: Soft, Nontender, Nondistended, Normal Bowel Sounds
Extremities: No Clubbing, Cyanosis
Neuro: Following commands, answering questions. AOx3 some confusion noted, cognitive impairment seems improved from yesterday immediate recall intact, some difficulty with delayed recall noted but patient was able to recall the 3 named objects he
was asked to remember though out of order.
Anticipated Discharge: Today
Subjective/Interval History
-
Date of Service: May 14, 2024
No acute distress. Overall reports feeling well. Cognitive function appears to be improving as per family at bedside. Patient eager to go home.
Objective Data
-
Labs:
Laboratory Results
05/14/24
06:14
WBC 5.7
Hgb 12.6 L
Hct 36.3 L
Plt Count 185
Sodium 138
Potassium 4.4
Chloride 100
Carbon Dioxide 30
BUN 20
Creatinine 0.8
Glucose 107 H
Calcium 8.8
Vital Signs:
Vital Signs
Temp Pulse Resp BP Pulse Ox
97.6 F 87 16 109/58 94
05/13/24 23:50 05/13/24 23:50 05/13/24 23:50 05/13/24 23:50 05/13/24 23:50
I&O
05/13/24 05/14/24 05/15/24
06:59 06:59 06:59
Intake Total 540 / 540 800 / 800
Output Total 25 / 25
Balance 515 / 515 800 / 800
[2024-05-14 07:30] VITALS: BP 146/75
[2024-05-14] MEDS: THERAGRAN 1 TABLET PO (08:21)
[2024-05-14] MEDS: ZESTRIL 10 MG PO (08:21)
[2024-05-14] MEDS: MIRALAX 17 GRAMS PO (08:21)
[2024-05-14] MEDS: NORVASC 5 MG PO (08:21)
[2024-05-14] MEDS: KEPPRA 500 MG PO (08:21)
--- NOTE | 2024-05-14 14:12 | VNURNOTE ---
Home Health Liaison spoke to patient's daughter Stephanie to [facility], visits, schedule and homebound status. Patient is agreeable and understands that visits at home will be 2-3 x per week to assess and teach medical management.
Per Stephanie, patient does not currently have a PCP but he has a new pt appt next Wed with Dr Hector Kay. Advised daughter that [facility] can accept pt once seen by PCP. She will attempt to move up PCP appt. Provided daughter with [facility] liaison
contact information. Hospitalist Dr Hermosillo notified of delay. [facility] Intake notified.
[2024-05-14 15:30] VITALS: BP 135/75
--- NOTE | 2024-05-14 16:27 | VNURNOTE ---
Rec'ed update from that patient's daughter choosing outpt therapy upon DC. [facility] intake notified.
--- NOTE | 2024-05-14 16:38 | W.DCSUMMARY ---
Discharge Summary
Discharge Data
Date of Admission: 05/04/24
Date of Discharge: 05/14/24
-
Pending Results: No
Discharge Plan
-
Patient Disposition: Home (Routine Discharge)
Discharge Diagnosis/Procedures: Encephalitis
Hypertension
Seizure
Intubated for airway protection 05/05 Extubated 05/07
Left Lower Lobe Pneumonia
Obesity
Condition: Fair
Diet: Low Cholesterol and 2 Gram Sodium
Activity: As tolerated
Driving Restrictions: No driving
Bathing Restrictions: None
Others Tests: Please follow up with primary care provider for repeat MRI without contrast in 1-2 weeks of discharge to follow up recent imaging concerning for Encephalitis/Encephalopathy
Please repeat CT chest with primary care provider in 2 weeks from discharge to follow up on pneumonia
Other Services: PT, OT and ST
Activity Restrictions/Additional Instructions:
[facility]
[address] [place] [address]
call to schedule appointment
Please follow up with primary care provider in 1 week of discharge, keep your appointment with Neurology, and follow up with neuropsychiatry and Pulmonology in 2-4 weeks of discharge.
Amlodipine and Lisinopril have been prescribed for hypertension.
Keppra has been prescribed for seizure disorder likely secondary to Encephalitis.
Multivitamin has been prescribed for nutrition support, this is available over the counter.
Please take medications as prescribed/recommended and follow up with primary care provider and/or other healthcare provider involved in your care for refills and/or further adjustment to your medication regimen as necessary.
Driving is strictly prohibited until cleared by neurology due to recent seizure.
Referrals:
Sarah Carpenter CRNP [Specified Professional Personl] - 06/09/24 1:00 pm
Alex Camacho PSY [Specified Professional Personl] - in two to four weeks
Ishmael High MD [Active] - in two to four weeks
UNKNOWN - PT NOT,INTERVIEWE [Family Provider] -
Prescriptions:
New
levetiracetam 500 mg Tablet
500 mg PO BID 30 Days Qty: 60 0RF
amlodipine 5 mg Tablet
5 mg PO DAILY 30 Days Qty: 30 0RF
lisinopril 10 mg Tablet
10 mg PO DAILY 30 Days Qty: 30 0RF
multivitamin with folic acid [Tab-A-Aggie] 400 mcg Tablet
1 tab PO DAILY 30 Days Qty: 30 0RF
Discontinued
amoxicillin 500 mg Capsule
1,000 mg PO TID
Patient Comments:
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
naproxen sodium [Aleve] 220 mg Tablet
660 mg PO BIDPRN PRN (Reason: shoulder pains)
Discharge Orders:
Discharge Patient (As Directed); Ordered 05/14/24
Ordered By: Kerri Hermosillo
Discharge Date and Time
Discharge Date/Time: 05/14/24 17:36
Print Language: SAUDI ARABIAN
[2024-05-14] MEDS: LOVENOX SC (17:05)
--- NOTE | 2024-05-15 11:25 | CM ---
CM received call from [facility] requesting H&P and transition of care. CM confirmed with [facility] that patient daughter had not wanted to wait for start of care with [facility]. CM attempted to confirm via phone with Stephanie that she did want clinical
information to be faxed to [facility]. Await call back from daughter. CM will continue to follow for discharge planning needs.
Plan; [facility]hab at home
== END 2024-05-14 17:36 | disposition home or self-care (01) | DRG 871 ==
LOC: 3 WEST ACU 16:25
PROVIDERS: Family Medicine; Nurse Practitioner Family; Nurse Practitioner Gerontology; Radiology Diagnostic Radiology; Radiology Vascular & Interventional Radiology; Registered Nurse Critical Care Medicine; ADMITTING PHYSICIAN Hospitalist; ATTENDING PHYSICIAN Internal Medicine; CONSULT PHYSICIAN Physical Medicine & Rehabilitation; CONSULT PHYSICIAN Psychiatry & Neurology Neurology; EMERGENCY PHYSICIAN Student in an Organized Health Care Education/Training Program; OTHER PHYSICIAN Internal Medicine Critical Care Medicine; OTHER PHYSICIAN Student in an Organized Health Care Education/Training Program
PROC: 5A1945Z Respiratory Ventilation, 24-96 Consecutive Hours (ICD-10-PCS; 2024-05-05)
PROC: 0BH17EZ Insertion of Endotracheal Airway into Trachea, Via Natural or Artificial Opening (ICD-10-PCS; 2024-05-05)
PROC: 02HV33Z Insertion of Infusion Device into Superior Vena Cava, Percutaneous Approach (ICD-10-PCS; 2024-05-05)
PROC: 009U3ZX Drainage of Spinal Canal, Percutaneous Approach, Diagnostic (ICD-10-PCS; 2024-05-05)
PROC: 0BP1XDZ Removal of Intraluminal Device from Trachea, External Approach (ICD-10-PCS; 2024-05-07)
PROC: 0DH67UZ Insertion of Feeding Device into Stomach, Via Natural or Artificial Opening (ICD-10-PCS; 2024-05-07)
PROC: 3E0G76Z Introduction of Nutritional Substance into Upper GI, Via Natural or Artificial Opening (ICD-10-PCS; 2024-05-07)
PROC: 3E0 Administration, Physiological Systems and Anatomical Regions, Introduction (ICD-10-PCS; 2024-05-09)
DX: A41.9 Sepsis, unspecified organism (principal); G04.90 Encephalitis and encephalomyelitis, unspecified; J18.9 Pneumonia, unspecified organism; J96.01 Acute respiratory failure with hypoxia; G92.8 Other toxic encephalopathy; R40.20 Unspecified coma; G93.49 Other encephalopathy; I16.0 Hypertensive urgency; I10 Essential (primary) hypertension; E66.09 Other obesity due to excess calories; Z68.36 Body mass index [BMI] 36.0-36.9, adult; Z11.52 Encounter for screening for COVID-19; R56.9 Unspecified convulsions; E87.6 Hypokalemia; E83.39 Other disorders of phosphorus metabolism; I95.2 Hypotension due to drugs; T42.75XA Adverse effect of unspecified antiepileptic and sedative-hypnotic drugs, initial encounter; Z78.1 Physical restraint status
CPT/HCPCS: 36600; 51701; 62328; 70450; 70496; 70498; 70551; 71045; 71275; 72125; 74018; 80048; 80053; 80306; 81003; 82077; 82140; 82550; 82607; 82746; 82805; 82945; 82962; 83540; 83550; 83605; 83735; 84100; 84157; 84439; 84443; 84478; 84484; 85025; 85027; 85610; 85730; 86618; 86780; 86788; 87015; 87040; 87070; 87205; 87449; 87483; 87502; 87641; 87811; 87899; 89051; 92523; 92526; 92610; 93005; 93306; 94002; 94003; 95816; 96361; 96365; 96366; 96375; 97116; 97129; 97163; 97167; 97530; 97535; 99285; J2997; Q9967

== ENCOUNTER → 2024-06-02 14:04 | Outpatient (REF) | payer OTHER, SELFPAY | LOC: HWRAD 14:04 | PROVIDERS: ATTENDING PHYSICIAN Nurse Practitioner Adult Health; FAMILY PHYSICIAN Internal Medicine | DX: J96.01 Acute respiratory failure with hypoxia (principal); J18.9 Pneumonia, unspecified organism | CPT/HCPCS: 71250 ==

== ENCOUNTER → 2024-06-18 09:01 | Outpatient (REF) | payer OTHER, SELFPAY | LOC: EEG 09:01 | PROVIDERS: ATTENDING PHYSICIAN Nurse Practitioner Adult Health; FAMILY PHYSICIAN Internal Medicine | DX: G92.8 Other toxic encephalopathy (principal) | CPT/HCPCS: 95708 ==

== ENCOUNTER → 2024-06-20 15:53 | Outpatient (REF) | payer OTHER, SELFPAY | LOC: DHSLP 15:53 | PROVIDERS: ATTENDING PHYSICIAN Internal Medicine Critical Care Medicine; FAMILY PHYSICIAN Internal Medicine | DX: G47.33 Obstructive sleep apnea (adult) (pediatric) (principal); R09.02 Hypoxemia | CPT/HCPCS: 95800 ==

== ENCOUNTER → 2024-07-05 06:53 | Outpatient (REF) | payer OTHER, SELFPAY | LOC: MRI 06:53 | PROVIDERS: ATTENDING PHYSICIAN Nurse Practitioner Adult Health; FAMILY PHYSICIAN Internal Medicine | DX: G92.8 Other toxic encephalopathy (principal); R56.9 Unspecified convulsions | CPT/HCPCS: 70553; A9575 ==